=== PATIENT | male | born 1965 | race American Indian/Alaskan Native ===

== ENCOUNTER 2017-08-05 18:49 | Emergency (ER) | payer OTHER ==
--- NOTE | 2017-08-05 19:23 | Emergency Department Report ---
ED Fall HPI - General Chief Complaint: Fall Stated Complaint: FELL Time Seen by Provider: 08/05/17 19:14 Source: patient, EMS Mode of arrival: Ambulatory - History of Present Illness Initial Comments: Patient is 58 years old male found face up outside by a front steps. Patient fell from a possibly 5 steps stairs. Patient had a strong smell of alcohol. Patient is complaining of neck pain and lower back pain. Patient is unable to give more history. MD Complaint: fall -: Sudden Fall From: down stairs (#) (5) When Fall Occurred: just prior to arrival - Related Data Previous Rx's Medication Instructions Recorded Last Taken Type Folic Acid [Folvite] 1 mg PO QDAY #30 tablet 02/23/16 Unknown Rx Multivitamin Tab [Multiple Vitamin 1 each PO QDAY #30 tablet 02/23/16 Unknown Rx TAB (Theragran)] Thiamine [Vitamin B-1] 100 mg PO QDAY #30 tablet 02/23/16 Unknown Rx Allergies Allergy/AdvReac Type Severity Reaction Status Date / Time No Known Allergies Allergy Verified 02/22/16 11:50 ED Review of Systems ROS: Stated complaint: FELL Other details as noted in HPI Comment: All other systems reviewed and negative Constitutional: denies: chills, fever ENT: denies: throat pain Respiratory: denies: cough, orthopnea, shortness of breath Cardiovascular: denies: chest pain, palpitations Gastrointestinal: denies: abdominal pain, nausea, vomiting, diarrhea, constipation, hematemesis, melena, hematochezia Genitourinary: denies: urgency, dysuria, frequency, hematuria, discharge Musculoskeletal: back pain. denies: joint swelling, arthralgia Skin: denies: rash Neurological: denies: headache, weakness, numbness, paresthesias, confusion, abnormal gait ED Past Medical Hx - Past Medical History Previous Medical History?: Yes Hx Hypertension: Yes Hx Congestive Heart Failure: No Hx Diabetes: No Hx Asthma: No Hx COPD: No Additional medical history: chronic RLE wound - Social History Smoking Status: Never Smoker - Medications Home Medications: Home Medications Medication Instructions Recorded Confirmed Last Taken Type Folic Acid [Folvite] 1 mg PO QDAY #30 tablet 02/23/16 Unknown Rx Multivitamin Tab [Multiple Vitamin 1 each PO QDAY #30 tablet 02/23/16 Unknown Rx TAB (Theragran)] Thiamine [Vitamin B-1] 100 mg PO QDAY #30 tablet 02/23/16 Unknown Rx ED Physical Exam - General Limitations: Physical Limitation General appearance: alert, in no apparent distress, other (patient with C-spine immobilization, on board.) - Head Head exam: Present: atraumatic, normocephalic, normal inspection - Eye Eye exam: Present: normal appearance, PERRL - ENT ENT exam: Present: normal exam, normal orophraynx, mucous membranes moist, TM's normal bilaterally, normal external ear exam - Neck Neck exam: Present: normal inspection, full ROM. Absent: tenderness, meningismus, lymphadenopathy, thyromegaly - Respiratory Respiratory exam: Present: normal lung sounds bilaterally. Absent: respiratory distress, wheezes, rales, rhonchi, stridor, chest wall tenderness, accessory muscle use, decreased breath sounds, prolonged expiratory - Cardiovascular Cardiovascular Exam: Present: regular rate, normal rhythm, normal heart sounds - GI/Abdominal GI/Abdominal exam: Present: soft, normal bowel sounds. Absent: distended, tenderness, guarding, rebound, rigid, organomegaly, mass, bruit, pulsatile mass , hernia - Extremities Exam Extremities exam: Present: normal inspection, full ROM, normal capillary refill - Back Exam Back exam: Present: normal inspection, full ROM, muscle spasm. Absent: tenderness, CVA tenderness (R), CVA tenderness (L), paraspinal tenderness, vertebral tenderness - Neurological Exam Neurological exam: Present: alert, oriented X3, CN II-XII intact - Skin Skin exam: Present: warm, intact, normal color ED Course Vital Signs 08/05/17 08/05/17 08/05/17 19:02 19:06 20:54 Temperature 97.8 F Pulse Rate 103 H 99 H Respiratory 20 20 20 Rate Blood Pressure 142/100 [Right] O2 Sat by Pulse 90 95 98 Oximetry - Reevaluation(s) Reevaluation #1: 08/05/17 23:50 Patient is intoxicated with alcohol level of 0.44. Patient is trying to leave the hospital. Patient put on 20-13 for protection. Security notified ED Medical Decision Making - Lab Data Result diagrams: 08/05/17 19:45 08/05/17 19:45 - EKG Data -: EKG Interpreted by Wi EKG shows normal: sinus rhythm - EKG Data Interpretation: no acute changes - Radiology Data Radiology results: report reviewed Referring Physician: MARA STAPLES Patient Name: JAVIER PLUMMER Date of : 1958-11-04 Sex: Male Report Date: 2017-08-05 Report Status: Finalized Findings [address] [address] Cat Scan Report Signed Patient: JAVIER PLUMMER MR#: [id number] : 11/04/1958 Acct:[id number] Age/Sex: 58 / M ADM Date: 08/05/17 Loc: ED Attending Dr: Ordering Physician: MARA STAPLES Date of Service: 08/05/17 Procedure(s): CT lumbar spine wo con Accession Number(s): [id number] cc: MARA STAPLES FINAL REPORT PROCEDURE: CT LUMBAR SPINE WO CON TECHNIQUE: Computerized axial tomography of the lumbar spine was performed from T12 to the sacrum without contrast material. HISTORY: fall/back pain COMPARISON: No prior studies are available for comparison. FINDINGS: There are focal depressions of the superior endplates of T12 through L3, which are likely related to Schmorl's nodes. No acute fracture line is seen. There are facet arthritic changes particularly at L4-5. No acute fracture or subluxation is seen. IMPRESSION: No acute fracture or subluxation is seen Transcribed By: [facility] Dictated By: JAIMEE MUNOZ M.D. Electronically Authenticated By: JAIMEE MUNOZ M.D. Signed Date/Time: 08/05/172007 DD/ 07 TD/TT: 08/05/172007 Referring Physician: MARA STAPLES Patient Name: JAVIER PLUMMER Date of : 1958-11-04 Sex: Male Report Date: 2017-08-05 Report Status: Finalized Findings [address] [address] Cat Scan Report Signed Patient: JAVIER PLUMMER MR#: [id number] : 11/04/1958 Acct:[id number] Age/Sex: 58 / M ADM Date: 08/05/17 Loc: ED Attending Dr: Ordering Physician: MARA STAPLES Date of Service: 08/05/17 Procedure(s): CT head/brain wo con Accession Number(s): [id number] cc: MARA STAPLES FINAL REPORT EXAM: CT HEAD/BRAIN WO CON HISTORY: FALL/neck pain TECHNIQUE: Standard unenhanced CT of the head at 5.0 millimeter axial increments. PRIORS: None. FINDINGS: The ventricular system is normal in size and configuration. There is no evidence for parenchymal volume loss. Incidental cavum septum pellucidum and vergae are present. There is no evidence for mass lesion, mass effect, midline shift, acute intracranial hemorrhage, or acute ischemia/ infarction. No evidence for acute skull fracture is seen. No abnormality in the overlying scalp soft tissues is seen. Visualized paranasal sinuses demonstrates mucosal thickening throughout all of the paranasal sinuses consistent with chronic pansinusitis. IMPRESSION: Negative CT of the head. No acute intracranial process noted. Transcribed By: [facility] Dictated By: OTILIA LEDBETTER MD Electronically Authenticated By: OTILIA LEDBETTER MD Signed Date/Time: 08/05/172010 Referring Physician: MARA STAPLES Patient Name: JAVIER PLUMMER Date of : 1958-11-04 Sex: Male Report Date: 2017-08-05 Report Status: [place] [address] Cat Scan Report Signed Patient: JAVIER PLUMMER MR#: [id number] : 11/04/1958 Acct:[id number] Age/Sex: 58 / M ADM Date: 08/05/17 Loc: ED Attending Dr: Ordering Physician: MARA STAPLES Date of Service: 08/05/17 Procedure(s): CT cervical spine wo con Accession Number(s): [id number] cc: MARA STAPLES FINAL REPORT PROCEDURE: CT CERVICAL SPINE WO CON TECHNIQUE: Computerized tomography of the cervical spine was performed from the skull base to T1 without contrast material. HISTORY: FALL/neck pain COMPARISON: No prior studies are available for comparison. FINDINGS: The vertebral body heights and alignment are maintained. There are multilevel degenerative disc changes, with disc space narrowing and osteophyte formation. The atlantodental articulation is unremarkable. IMPRESSION: No acute fracture or subluxation is identified. Transcribed By: CHRISTIAN[facility] Dictated By: JAIMEE MUNOZ M.D. Electronically Authenticated By: JAIMEE MUNOZ M.D. Signed Date/Time: 08/05/172000 DD/ 00 TD/TT: 08/05/172000 DD/ 10 TD/TT: 08/05/172010Referring Physician: MARA STAPLES Patient Name: JAVIER PLUMMER Date of : 1958-11-04 Sex: Male Report Date: 2017-08-05 Report Status: [place] [address] Cat Scan Report Signed Patient: JAVIER PLUMMER MR#: [id number] : 11/04/1958 Acct:[id number] Age/Sex: 58 / M ADM Date: 08/05/17 Loc: ED Attending Dr: Ordering Physician: MARA STAPLES Date of Service: 08/05/17 Procedure(s): CT cervical spine wo con Accession Number(s): [id number] cc: MARA STAPLES FINAL REPORT PROCEDURE: CT CERVICAL SPINE WO CON TECHNIQUE: Computerized tomography of the cervical spine was performed from the skull base to T1 without contrast material. HISTORY: FALL/neck pain COMPARISON: No prior studies are available for comparison. FINDINGS: The vertebral body heights and alignment are maintained. There are multilevel degenerative disc changes, with disc space narrowing and osteophyte formation. The atlantodental articulation is unremarkable. IMPRESSION: No acute fracture or subluxation is identified. Transcribed By: CHRISTIANNE Dictated By: JAIMEE MUNOZ M.D. Electronically Authenticated By: JAIMEE MUNOZ M.D. Signed Date/Time: 08/05/172000 DD/ 00 TD/TT: 08/05/172000 - Medical Decision Making Patient is intoxicated and incapacitated by alcohol. Patient's CT head, neck and lumbar negative for acute finding. Patient will be held in the ER until he is sober and his alcohol level is normal. Critical Care Time: Yes Critical care time in (mins) excluding proc time.: 30 Critical care attestation.: If time is entered above; I have spent that time in minutes in the direct care of this critically ill patient, excluding procedure time. ED Disposition Clinical Impression: Head injury, Neck injury, Back strain, Alcohol intoxication Disposition: DC- TO HOME OR SELFCARE Is pt being admited?: No Condition: Stable Instructions: Muscle Strain (ED), Minor Head Injury (ED), Alcohol Intoxication (ED), Fall Prevention (ED) Referrals: PRIMARY CARE, [Primary Care Provider] - 3-5 Days
[2017-08-05 19:59] LABS: Basophils # (Auto) 0.1 K/mm3 (0.0-0.1); Basophils % (Auto) 2.6 % (0.0-1.8); Eosinophils % (Auto) 0.9 % (0.0-4.3); Hematocrit 46.3 % (35.5-45.6); Hemoglobin 15.1 gm/dl (11.8-15.2); Lymphocytes # (Auto) 1.5 K/mm3 (1.2-5.4); Lymphocytes % (Auto) 36.4 % (13.4-35.0); Mean Corpuscular HGB Conc 33 % (32-34); Mean Corpuscular Hemoglobin 30 pg (28-32); Mean Corpuscular Volume 91 fl (84-94); Monocytes # (Auto) 0.5 K/mm3 (0.0-0.8); Monocytes % (Auto) 13.3 % (0.0-7.3); Platelet Count 181 K/mm3 (140-440); Red Blood Count 5.11 M/mm3 (3.65-5.03); Red Cell Distribution Width 16.8 % (13.2-15.2)
[2017-08-05 20:07] LABS: INR 0.91 (0.87-1.13); Partial Thromboplastin Time 27.9 Sec. (24.2-36.6)
--- NOTE | 2017-08-05 20:07 | Cat Scan Report ---
FINAL REPORT PROCEDURE: CT CERVICAL SPINE WO CON TECHNIQUE: Computerized tomography of the cervical spine was performed from the skull base to T1 without contrast material. HISTORY: FALL/neck pain COMPARISON: No prior studies are available for comparison. FINDINGS: The vertebral body heights and alignment are maintained. There are multilevel degenerative disc changes, with disc space narrowing and osteophyte formation. The atlantodental articulation is unremarkable. IMPRESSION: No acute fracture or subluxation is identified.
--- NOTE | 2017-08-05 20:13 | Cat Scan Report ---
FINAL REPORT PROCEDURE: CT LUMBAR SPINE WO CON TECHNIQUE: Computerized axial tomography of the lumbar spine was performed from T12 to the sacrum without contrast material. HISTORY: fall/back pain COMPARISON: No prior studies are available for comparison. FINDINGS: There are focal depressions of the superior endplates of T12 through L3, which are likely related to Schmorl's nodes. No acute fracture line is seen. There are facet arthritic changes particularly at L4-5. No acute fracture or subluxation is seen. IMPRESSION: No acute fracture or subluxation is seen
--- NOTE | 2017-08-05 20:16 | Cat Scan Report ---
FINAL REPORT EXAM: CT HEAD/BRAIN WO CON HISTORY: FALL/neck pain TECHNIQUE: Standard unenhanced CT of the head at 5.0 millimeter axial increments. PRIORS: None. FINDINGS: The ventricular system is normal in size and configuration. There is no evidence for parenchymal volume loss. Incidental cavum septum pellucidum and vergae are present. There is no evidence for mass lesion, mass effect, midline shift, acute intracranial hemorrhage, or acute ischemia/ infarction. No evidence for acute skull fracture is seen. No abnormality in the overlying scalp soft tissues is seen. Visualized paranasal sinuses demonstrates mucosal thickening throughout all of the paranasal sinuses consistent with chronic pansinusitis. IMPRESSION: Negative CT of the head. No acute intracranial process noted.
[2017-08-05 20:39] LABS: Alanine Aminotransferase 25 units/L (7-56); BUN/Creatinine Ratio 8; Blood Urea Nitrogen 6 mg/dL (9-20); Calcium 8.8 mg/dL (8.4-10.2); Hemolysis Index 1
[2017-08-05 21:27] LABS: Bacteria,Urine 1+ /HPF (Negative); Bilirubin,Urine NEG (Negative); Blood,Urine MOD (Negative); Color,Urine Yellow (Yellow); Hyaline Casts,Urine 1 /LPF; Mucus,Urine FEW /HPF; Protein,Urine <15 mg/dL mg/dL (Negative); Urobilinogen,Urine < 2.0 mg/dL (<2.0); WBC,Urine < 1.0 /HPF (0.0-6.0)
[2017-08-05 21:54] LABS: Amphetamine Screen,Urine PRESUMPTIVE NEGATIVE; Benzodiazepines Screen,Urine PRESUMPTIVE NEGATIVE; Cannabinoid Screen,Urine PRESUMPTIVE NEGATIVE; Cocaine Screen,Urine PRESUMPTIVE NEGATIVE; Methadone Screen,Urine PRESUMPTIVE NEGATIVE; Opiate Screen,Urine PRESUMPTIVE NEGATIVE
[2017-08-05] MEDS ORDERED: NACL 0.9% 1000 ML 1,000 ML IV ONE (22:09)
[2017-08-06 08:03] VITALS: BP 156/111
== END 2017-08-06 12:30 | disposition home or self-care (01) ==
LOC: EDBD → ED 18:49
DX: F10.129 Alcohol abuse with intoxication, unspecified (principal); S39.012A Strain of muscle, fascia and tendon of lower back, initial encounter; S19.9XXA Unspecified injury of neck, initial encounter; S09.90XA Unspecified injury of head, initial encounter; I10 Essential (primary) hypertension; Y90.9 Presence of alcohol in blood, level not specified; Z79.899 Other long term (current) drug therapy; W10.8XXA Fall (on) (from) other stairs and steps, initial encounter; Y93.89 Activity, other specified; Y99.8 Other external cause status; Y92.89 Other specified places as the place of occurrence of the external cause
CPT/HCPCS: 36415; 70450; 72125; 72131; 80053; 80307; 81001; 85025; 85610; 85730; 93005; 93010; 99291; G0480; J7030; 80320

== ENCOUNTER 2018-06-22 00:04 | Inpatient (IN) | payer OTHER ==
[2018-06-22] MEDS ORDERED: ASPIRIN PO ONE (00:39)
--- NOTE | 2018-06-22 00:46 | Emergency Department Report ---
ED General Adult HPI - General Chief complaint: Chest Pain Stated complaint: BACK PAIN/WEAKNESS Source: patient, EMS Mode of arrival: Ambulatory Limitations: No Limitations - History of Present Illness Initial comments: Patient is a 59-year-old gentleman who is presenting via EMS for a syncopal episode in the shower. Patient called paramedics because the patient had a possible syncopal episode while in the shower. Patient did fall. When paramedics arrived the patient's was diaphoretic and seemed somewhat altered. Patient was able to say that he was in considerable pain with his back gave multiple birthdates and also multiple versions of what happened today. Patient stated initially that he passed out in the shower however now she is here he states that he just simply sat down. Patient also was asked by paramedics prior to arrival the patient had any abdomen is with his bowels or bladder initially saidthat he changes his story and stated that his urine was red. Patient also stated that he had chest pain to paramedics however now he states he sometimes g ets chest pain and had none today. Patient per my history physical states that he is having no chest or abdominal pain he denied any nausea vomiting or diarrhea. Patient simply states that he has back pain and he is weak. Paramedics did add that the patient has chronic back pain and has been in pain. The past 6 months and the patient also according to his 's report to the paramedics the patient was working up until 6 months ago and has been suffering for chronic weakness. - Related Data Previous Rx's Medication Instructions Recorded Last Taken Type Folic Acid [Folvite] 1 mg PO QDAY #30 tablet 09/19/17 Unknown Rx Multivitamin Tab [Multiple Vitamin 1 each PO QDAY #30 tablet 09/19/17 Unknown Rx TAB (Theragran)] Thiamine [Vitamin B-1] 100 mg PO QDAY #30 tablet 09/19/17 Unknown Rx hydrALAZINE [Apresoline TAB] 25 mg PO Q8HR #90 tablet 09/19/17 Unknown Rx Allergies Allergy/AdvReac Type Severity Reaction Status Date / Time No Known Allergies Allergy Verified 02/22/16 11:50 ED Review of Systems ROS: Stated complaint: BACK PAIN/WEAKNESS Other details as noted in HPI Comment: Unobtainable due to pts medical conditions ED Past Medical Hx - Past Medical History Previous Medical History?: Yes Hx Hypertension: Yes Hx Congestive Heart Failure: No Hx Diabetes: No Hx Seizures: Yes Hx Asthma: No Hx COPD: No Hx HIV: No Additional medical history: chronic RLE wound - Surgical History Past Surgical History?: No - Social History Smoking Status: Never Smoker Substance Use Type: Alcohol - Medications Home Medications: Home Medications Medication Instructions Recorded Confirmed Last Taken Type Folic Acid [Folvite] 1 mg PO QDAY #30 tablet 09/19/17 02/24/18 Unknown Rx Multivitamin Tab [Multiple Vitamin 1 each PO QDAY #30 tablet 09/19/17 02/24/18 Unknown Rx TAB (Theragran)] Thiamine [Vitamin B-1] 100 mg PO QDAY #30 tablet 09/19/17 02/24/18 Unknown Rx hydrALAZINE [Apresoline TAB] 25 mg PO Q8HR #90 tablet 09/19/17 02/24/18 Unknown Rx ED Physical Exam - General Limitations: No Limitations General appearance: alert, in no apparent distress, other (patient is tremulous) - Head Head exam: Present: atraumatic, normocephalic - Eye Eye exam: Present: PERRL, EOMI, scleral icterus Pupils: Present: normal accommodation - ENT ENT exam: Present: normal exam, mucous membranes moist - Neck Neck exam: Present: normal inspection - Respiratory Respiratory exam: Present: normal lung sounds bilaterally. Absent: respiratory distress, wheezes, rales, rhonchi - Cardiovascular Cardiovascular Exam: Present: regular rate, normal rhythm. Absent: systolic murmur, diastolic murmur, rubs, gallop - GI/Abdominal GI/Abdominal exam: Present: soft, normal bowel sounds. Absent: distended, tenderness, guarding, rebound - Rectal Rectal exam: Present: deferred - Extremities Exam Extremities exam: Present: normal inspection - Back Exam Back exam: Present: normal inspection - Neurological Exam Neurological exam: Present: alert, altered, CN II-XII intact. Absent: motor sensory deficit - Psychiatric Psychiatric exam: Present: normal affect, normal mood - Skin Skin exam: Present: warm, dry, intact, normal color. Absent: rash ED Course Vital Signs 06/22/18 00:45 Temperature 100.2 F H Pulse Rate 118 H Respiratory 47 H Rate Blood Pressure 98/58 [Left] O2 Sat by Pulse 98 Oximetry - Reevaluation(s) Reevaluation #1: 06/22/18 01:59 Once the patient's laboratory studies returned patient has a new elevated bilirubin. Patient is a history of heavy alcohol use. Patient has a low-grade fever as well and despite the patient stating that he has no abdominal pain with deep palpation patient is tender in the epigastrium and right upper quadrant. This makes cholangitis likely. Patient was started on sepsis protocol at this time and antibiotics will be ordered. ED Medical Decision Making - Lab Data Result diagrams: 06/22/18 01:02 06/22/18 01:02 Lab Results 06/22/18 06/22/18 06/22/18 Range/Units 01:02 01:02 01:02 WBC 7.7 (4.5-11.0) K/mm3 RBC 3.52 L (3.65-5.03) M/mm3 Hgb 11.4 L (11.8-15.2) gm/dl Hct 36.8 (35.5-45.6) % MCV 104 H (84-94) fl MCH 32 (28-32) pg MCHC 31 L (32-34) % RDW 18.6 H (13.2-15.2) % Plt Count 58 L (140-440) K/mm3 PT 18.1 H (12.2-14.9) Sec. INR 1.40 H (0.87-1.13) D-Dimer 1064.09 H (0-234) ng/mlDDU Sodium 125 L (137-145) mmol/L Potassium 3.5 L (3.6-5.0) mmol/L Chloride 85.5 L (98-107) mmol/L Carbon Dioxide 13 L (22-30) mmol/L Anion Gap 30 mmol/L BUN 17 (9-20) mg/dL Creatinine 3.1 H (0.8-1.5) mg/dL Estimated GFR 25 ml/min BUN/Creatinine Ratio 5 % Glucose 124 H (75-100) mg/dL Calcium 8.2 L (8.4-10.2) mg/dL Total Bilirubin 23.50 H (0.1-1.2) mg/dL AST 448 H (5-40) units/L ALT 92 H (7-56) units/L Alkaline Phosphatase 326 H (35-129) units/L Ammonia (25-60) umol/L Troponin T < 0.010 (0.00-0.029) ng/mL Albumin 2.5 L (3.9-5) g/dL Lipase (13-60) units/L 06/22/18 06/22/18 Range/Units 01:02 01:02 WBC (4.5-11.0) K/mm3 RBC (3.65-5.03) M/mm3 Hgb (11.8-15.2) gm/dl Hct (35.5-45.6) % MCV (84-94) fl MCH (28-32) pg MCHC (32-34) % RDW (13.2-15.2) % Plt Count (140-440) K/mm3 PT (12.2-14.9) Sec. INR (0.87-1.13) D-Dimer (0-234) ng/mlDDU Sodium (137-145) mmol/L Potassium (3.6-5.0) mmol/L Chloride (98-107) mmol/L Carbon Dioxide (22-30) mmol/L Anion Gap mmol/L BUN (9-20) mg/dL Creatinine (0.8-1.5) mg/dL Estimated GFR ml/min BUN/Creatinine Ratio % Glucose (75-100) mg/dL Calcium (8.4-10.2) mg/dL Total Bilirubin (0.1-1.2) mg/dL AST (5-40) units/L ALT (7-56) units/L Alkaline Phosphatase (35-129) units/L Ammonia 87.0 H (25-60) umol/L Troponin T (0.00-0.029) ng/mL Albumin (3.9-5) g/dL Lipase 99 H (13-60) units/L - Radiology Data CT of the head is within normal limits. Chest x-ray shows that the patient did not take adequate breath however there is no obvious infiltrates. X-ray of the L-spine per my interpretation shows that the patient does have significant degenerative disease however there is no acute fracture - Medical Decision Making Patient is a 59-year-old gentleman who is presenting with some altered mental status and multiple laboratory abnormalities. Questionable whether the patient has episode at home. Patient also states he only has back pain however he is tender in his epigastrium or right upper quadrant on palpation during my exam. Patient is is hyponatremic and has new onset hyperbilirubinemia. Patient had a low-grade temperature and some mild abdominal discomfort which is worrisome for cholangitis. Patient is to be given ultrasound of his abdomen. At the time of admission ultrasound findings are pending. Patient started on sepsis protocol due to his persistent tachycardia tachypnea. Patient started on broad-spectrum antibiotics blood cultures have been drawn. Patient admitted to the hospitalist service at this time. Patient also has a elevated d-dimer however because of the renal function the patient cannot receive a CT of the chest at this time. VQ scan will be done in the morning. The Hospitalist is aware Critical Care Time: Yes (40) Critical care attestation.: If time is entered above; I have spent that time in minutes in the direct care of this critically ill patient, excluding procedure time. ED Disposition Clinical Impression: Hyponatremia, Hyperbilirubinemia, Hepatic encephalopathy, Transaminitis, Cholangitis Acute renal failure Qualifiers: Acute renal failure type: unspecified Qualified Code(s): N17.9 - Acute kidney failure, unspecified Syncope Qualifiers: Syncope type: vasovagal syncope Qualified Code(s): R55 - Syncope and collapse EtOH dependence Qualifiers: Substance use status: unspecified alcohol-induced disorder Qualified Code(s): F10.29 - Alcohol dependence with unspecified alcohol-induced disorder Wound of right lower extremity Qualifiers: Encounter type: subsequent encounter Qualified Code(s): S81.801D - Unspecified open wound, right lower leg, subsequent encounter Disposition: OP ADMIT IP TO THIS HOSP Is pt being admited?: Yes Does the pt Need Aspirin: No Condition: Stable Referrals: JAVID VIVEROS MD [Primary Care Provider] - 3-5 Days Time of Disposition: 02:23
[2018-06-22 01:12] LABS: Hematocrit 36.8 % (35.5-45.6); Hemoglobin 11.4 gm/dl (11.8-15.2); Mean Corpuscular HGB Conc 31 % (32-34); Mean Corpuscular Volume 104 fl (84-94); Red Blood Count 3.52 M/mm3 (3.65-5.03); Red Cell Distribution Width 18.6 % (13.2-15.2)
[2018-06-22 01:16] LABS: Platelet Count 58 K/mm3 (140-440)
[2018-06-22 01:35] LABS: Alanine Aminotransferase 92 units/L (7-56); Albumin 2.5 g/dL (3.9-5); BUN/Creatinine Ratio 5; Blood Urea Nitrogen 17 mg/dL (9-20); Calcium 8.2 mg/dL (8.4-10.2); Hemolysis Index 5
[2018-06-22 01:39] LABS: INR 1.4 (0.87-1.13)
--- NOTE | 2018-06-22 01:42 | Cat Scan Report ---
CT HEAD/BRAIN WO CON CLINICAL INDICATION: Male, 59 years of age. AMS, syncope COMPARISON: CT of the head from January 2018. TECHNIQUE: Contiguous axial images were obtained from the vertex through the skull base.This CT exam was perform ed using one or more of the following dose reduction techniques: automated exposure control, adjustme nt of the mA and/or kV according to patient size, or use of iterative reconstruction technique. FINDINGS: No acute intracranial hemorrhage, midline shift, or extra-axial fluid collection. Cable septum pelluc idum is present, benign). Ventricles and cisterns are normal in size and configuration for the patien t's age. Ness white differentiation is maintained. Calvarium is grossly intact. Ocular globes are grossly unremarkable. Visualized paranasal sinuses and mastoid air cells are grossly clear. IMPRESSION: No grossly acute intracranial abnormality. This document is electronically signed by Margi Weinberg DO., June 22 2018 01:40:58 AM ET
[2018-06-22] MEDS ORDERED: NACL 0.9% 1000 ML 1,000 ML IV ONE ×2 (01:50→14:12)
[2018-06-22] MEDS ORDERED: CEPHULAC PO ONE (01:51)
[2018-06-22 02:06] LABS: Partial Thromboplastin Time 71.9 Sec. (24.2-36.6)
--- NOTE | 2018-06-22 02:26 | XRay Report ---
XR CHEST 1V AP CLINICAL INDICATION: Male, 59 years of age. Chest Pain COMPARISON: August 2017. Findings: Frontal view(s) of the chest obtained. Stable mild cardiac enlargement. Shallow inspiratio n. Crowding of the bronchovascular markings. Small patchy opacity at the right lung base concerning f or atelectasis versus pneumonia. No gross pneumothorax. IMPRESSION: Small patchy opacity at the right lung base concerning for atelectasis versus pneumonia. Stable mild cardiac enlargement. This document is electronically signed by Margi Weinberg DO., June 22 2018 02:24:10 AM ET
--- NOTE | 2018-06-22 02:37 | XRay Report ---
XR SPINE LUMBOSACRAL 2-3V CLINICAL INDICATION: Male, 59 years of age. back pain, s/p fall COMPARISON: CT lumbar spine from July 2017. FINDINGS: 2 views of the lumbar spine obtained. Stable moderate superior plate compression deformity at the L1 level and prominent Schmorl's deformities and mild superior endplate compression deformitie s of the T12, L2 and L3 levels. L4 and L5 vertebral body heights are preserved. Pedicles are grossly intact. No spondylolisthesis. IMPRESSION: Stable prominent Schmorl's deformities and multilevel compression deformities at the T12-L3 levels. This document is electronically signed by Margi Weinberg DO., June 22 2018 02:35:50 AM ET
[2018-06-22] MEDS ORDERED: MAXIPIME/NS 2 GM/100 ML 2 GM/100 ML BAG IV ONE (03:00)
[2018-06-22] MEDS: FLAGYL 500 MG/100 ML 500 MG/100 ML BAG IV SCH ×3 (03:00→19:48)
[2018-06-22] MEDS ORDERED: MORPHINE IV PRN ×2 (03:09→18:02)
[2018-06-22] MEDS ORDERED: ZOFRAN IV PRN (03:10)
--- NOTE | 2018-06-22 03:39 | Ultrasound Report ---
PROCEDURE: US ABDOMEN LIMITED TECHNIQUE: Ultrasound images obtained of the right upper quadrant HISTORY: RUQ pain elev Bili, low grade fever COMPARISONS: No priors FINDINGS: Pancreas is not well visualized. Coarsely echogenic hepatic parenchyma consistent with fatty infiltration. Distended gallbladder. No evidence of gallstones. Question trace pericholecystic fluid. No evidence of gallbladder wall thickening. The common bile duct is dilated measuring approximately 1.1 cm. Evaluation is limited based on the images obtained. Limited visualization of the right kidney. No evidence of hydronephrosis. IMPRESSION: Coarsely echogenic hepatic parenchyma consistent with fatty infiltration. Distended gallbladder with questionable trace pericholecystic fluid. No gallstones visualized. Dilatation of the common bile duct measuring approximately 1.1 cm. Distal obstructive process must be suspected. Further evaluation with CT and or correlation with MRCP should be considered. If acute cholecystitis is clinically suspected, correlation with HIDA scan may be helpful.. This document is electronically signed by Mayo Gillis MD., June 22 2018 03:37:23 AM ET
[2018-06-22 05:04] LABS: Basophils % (Manual) 0 % (0.0-1.8); Eosinophils % (Manual) 0 % (0.0-4.3); Myelocytes # (Manual) 0.3 K/mm3; Total Cells Counted 100
[2018-06-22 05:05] LABS: Anisocytosis 1+; Hypochromasia Few; Poikilocytosis 1+; Target Cells 1+
[2018-06-22 05:06] LABS: Platelet Estimate Consistent w Auto
[2018-06-22] MEDS ORDERED: FOLVITE 1 MG, INFUVITE 10 ML in NACL 0.9% 1000 ML 1,000 ML IV ONE (06:15)
[2018-06-22] MEDS ORDERED: VITAMIN B-1 PO ONE (07:00)
[2018-06-22] MEDS ORDERED: IBUPROFEN PO PRN ×2 (08:00→14:12)
--- NOTE | 2018-06-22 08:19 | History and Physical Report ---
CHIEF COMPLAINT: Back pain. Other complaints include syncope, generalized body pain, confusion, jaundice, and shortness of breath. HISTORY OF PRESENTING ILLNESS: The patient is a 59-year-old male brought in by EMS after he gave different accounts of what happened to him to different people. He said he told EMS that he had a syncopal episode while in the shower; however, the patient's called EMS and also gave a different account of what was going on with the patient; however, the patient said that he has severe low back pain and denied any history of nausea or vomiting; denied any history of fever or chills, and said that he has generalized body pain which also involved the chest area. The patient denied history of abdominal pain. Denied history of nausea, vomiting, or diarrhea; however, he admitted to feeling weak. The patient presented for evaluation. PAST MEDICAL HISTORY: His past medical history is pertinent for hypertension, seizure disorder, chronic right lower extremity wound. PAST SURGICAL HISTORY: Unremarkable. FAMILY HISTORY: Noncontributory. SOCIAL HISTORY: The patient does not smoke, but drinks alcohol, and does not use illicit drugs. MEDICATIONS: The patient is on folic acid 1 mg by mouth daily, multivitamin Theragran 1 by mouth daily. The patient is also on thiamine 100 mg by mouth daily, hydralazine 25 mg by mouth every 8 hours. ALLERGIES: There are no known drug allergies. REVIEW OF SYSTEMS: CONSTITUTIONAL: There is no fever, no chills, no diaphoresis. HEENT: There is no headache or sore throat. CARDIOVASCULAR SYSTEM: There is no chest pain or orthopnea. RESPIRATORY SYSTEM: There is history of shortness of breath, but no cough. GASTROINTESTINAL SYSTEM: There is no history of abdominal pain, nausea, vomiting, diarrhea, or constipation. NEUROLOGICAL SYSTEM: History of syncopal attack noted. History of confusion noted. MUSCULOSKELETAL SYSTEM: Low back pain noted. Generalized body pain noted. DERMATOLOGIC SYSTEM: There is no skin rash or itching. GENITOURINARY SYSTEM: There is no dysuria, hematuria, or flank pain. Rest of system review is normal. PHYSICAL EXAMINATION: GENERAL: At the time of exam, the patient was found to be alert and oriented to person only, occasionally confused, but not in acute distress. VITAL SIGNS: At the initial time of presentation showed temperature of 100.2 degrees Fahrenheit, pulse of 118, respirations of 47, blood pressure 98/58, O2 sat of 98% on room air. HEENT: Show pupils to be equal, round, reactive to light, and accommodating. The patient has icteric jaundice. Oral mucosa looks dry. NECK: Supple with no JVD or carotid bruit. CARDIOVASCULAR SYSTEM: Show normal first and second heart sounds with no gallops or murmurs. RESPIRATORY SYSTEM: Show good air entry on both sides of the lungs with no abnormal breath sounds. GASTROINTESTINAL SYSTEM: Show abdomen to be full, soft, and nontender with no organomegaly or rigidity elicited. Bowel sounds are normal. NEUROLOGICAL SYSTEM: Showed the patient to be confused from time to time with no focal deficit elicited. MUSCULOSKELETAL SYSTEM: Show swelling in the right foot. DERMATOLOGIC SYSTEM: Show no skin rash, but there is dryness in the skin on both lower extremities. GENITOURINARY: Show no costovertebral angle tenderness. IMAGING STUDIES: The patient had chest x-ray done. Chest x-ray shows small patchy opacity at the right lung base concerning for atelectasis versus pneumonia. Stable mild cardiac enlargement was also found. CT of the head without contrast was also done and this showed no grossly acute intracranial abnormality. The patient had lumbar spine x-ray done. Lumbar CT shows stable prominent Schmorl's deformity and multilevel compression deformity at the T11-L3 levels. The patient had abdominal ultrasound done and abdominal ultrasound shows coarsely echogenic hepatic parenchyma consistent with fatty infiltrate. Distended gallbladder with questionable trace pericholecystic fluid. No gallstones visualized. There is dilatation of the common bile duct measuring approximately 1.1 cm. Distal obstructive process might be suspected. Radiology said that further evaluation with CT and correlation with MRCP should be considered and also went ahead and said if acute cholecystitis is clinically suspected, correlation with HIDA scan may be helpful. LABORATORY RESULTS: The patient has CBC done with normal white count, slightly low hemoglobin of 11.1, normal hematocrit, and elevated MCV of 104 with low platelet level of 58,000. The patient's CBC differential show elevated segmented neutrophil count of 84%. The patient's coagulation studies show high PT of 18.1 with elevated INR of 1.4 and high PTT of 71.9 with elevated D-dimer of 1064. The patient's sodium level is low with a value of 125 and potassium level is low with a value of 3.5 with low chloride level of 85.5. The patient's rest of chemistry show high lactic acid level of 5.6 with low calcium of 8.2, elevated bilirubin of 23.5 with high AST of 448 and high ALT of 92 consistent with the patient's alcohol abuse. The patient's ammonia level is high with a value of 87 and albumin level is low with a value of 2.5. Lipase level is high with a value of 99 and the patient's alcohol level is also high with a value of 0.11. DIAGNOSES: Include: 1. Hepatic encephalopathy. 2. Syncope. 3. Acute kidney injury. 4. Electrolyte imbalance with low sodium and low potassium level. 5. Right lung pneumonia and sepsis. PLAN OF CARE: 1. The patient will be admitted to Telemetry. 2. The patient will have Nephrology consult with Dr. Donovan for acute kidney injury. 3. The patient will have GI consult with Dr. Cayetano Holliday for [facility] because of transaminitis, jaundice, alcoholic liver disease, and dilated common bile duct with hyperbilirubinemia. 4. The patient will have Orthopedic Surgical consult with Dr. Delano Brambila because of acute on chronic low back pain with deformities involving the thoracic and lumbar spine. 5. The patient will be on IV cefepime 1 g q. 8 hours and IV Zithromax 500 mg daily. 6. The patient will be on IV morphine 2 mg every 4 hours needed for pain and IV Zofran 4 mg every 8 hours for nausea and vomiting. 7. The patient will have V/Q scan done this morning to rule out PE because of shortness of breath, tachycardia, and elevated D-dimer. 8. The patient will be on IV normal saline running at 125 mL an hour because of sepsis. 9. The patient will have basic metabolic panel, ammonia level, and lipase level checked this morning. 10. The patient's DVT prophylaxis will be through sequential compressive device and the patient would not be on heparin because of thrombocytopenia. 11. The patient will have lactic acid checked this morning and will have banana bag mixed with IV normal saline that the patient will be getting for treatment of possible alcohol withdrawal. JOB# [id number] OCN/NTS MTDD
[2018-06-22 08:39] LABS: Calcium 7.6 mg/dL (8.4-10.2)
[2018-06-22 08:54] LABS: Albumin 2.3 g/dL (3.9-5)
--- NOTE | 2018-06-22 08:59 | Consultation ---
History of Present Illness - Reason for Consult Consult date: 06/22/18 acute renal failure - History of Present Illness Mr. Bhatia is a 59yo gentleman with hx of HTN and alcohol abuse who presented to the ED following a syncopal episode at home. Patient initially reported that he passed out but later stated that he sat down. Patient denies headache, chest pain, SOB, nausea, vomiting and diarrhea. Of note, patient with hx of multiple ED visits and/or hospitalizations due to syncope Past History Past Medical History: hypertension Past Surgical History: No surgical history Social history: no significant social history Family history: no significant family history Medications and Allergies Allergies Allergy/AdvReac Type Severity Reaction Status Date / Time No Known Allergies Allergy Verified 02/22/16 11:50 Home Medications Medication Instructions Recorded Confirmed Last Taken Type Folic Acid [Folvite] 1 mg PO QDAY #30 tablet 09/19/17 02/24/18 Unknown Rx Multivitamin Tab [Multiple Vitamin 1 each PO QDAY #30 tablet 09/19/17 02/24/18 Unknown Rx TAB (Theragran)] Thiamine [Vitamin B-1] 100 mg PO QDAY #30 tablet 09/19/17 02/24/18 Unknown Rx hydrALAZINE [Apresoline TAB] 25 mg PO Q8HR #90 tablet 09/19/17 02/24/18 Unknown Rx Active Meds: Active Medications Metronidazole (Flagyl 500 Mg/100 Ml) 500 mg in 100 mls @ 100 mls/hr IV Q8H BRISEYDA; Protocol Last Admin: 06/22/18 03:00 Dose: 100 mls/hr Documented by: Cefepime HCl (Maxipime/Ns 2 Gm/100 Ml) 2 gm in 100 mls @ 200 mls/hr IV Q12HR BRISEYDA Folic Acid 1 mg/ Multivitamins /Minerals 10 ml/ Sodium Chloride 1,010.2 mls @ 125 mls/hr IV ONCE ONE Stop: 06/22/18 14:19 Last Admin: 06/22/18 08:32 Dose: 125 mls/hr Documented by: Azithromycin 500 mg/ Sodium (Chloride) 250 mls @ 250 mls/hr IV Q24HR BRISEYDA Ibuprofen (Motrin) 600 mg PO Q6HR PRN PRN Reason: Fever >101 Last Admin: 06/22/18 08:39 Dose: 600 mg Documented by: Lactulose (Cephulac) 20 gm PO Q8H [facility] Morphine Sulfate (Morphine) 2 mg IV Q4H PRN PRN Reason: Pain, Moderate (4-6) Ondansetron HCl (Zofran) 4 mg IV Q8H PRN PRN Reason: Nausea And Vomiting Review of Systems All systems: negative Exam - Vital Signs Vital signs: Vital Signs Resp 25 H 06/22/18 00:36 - General Appearance General appearance: well-developed, well-nourished EENT: ATNC, sclera incterus Respiratory: Clear to Ascultation Heart: regular, S1S2 Gastrointestinal: Present: normal. Absent: tenderness, distended Integumentary: warm and dry, other (jaundiced) Musculoskeletal: Present: other (no edema) Psychiatric: cooperative Results - Lab Results 06/22/18 01:02 06/22/18 14:50 Most recent lab results Calcium 7.6 mg/dL (8.4-10.2) L 06/22/18 07:22 Assessment and Plan Impression: * Acute kidney injury secondary to prerenal azotemia * Sepsis * Hyponatremia * Syncope * Hyperbilirubinemia * Transaminitis * Alcohol abuse Plan: * Continue IVF for hydration - currently receiving NS/banana bag * Patient is not a candidate for V2 receptor antagonist due to liver disease * Empiric abx per primary team - blood cx pending * Avoid neprotoxins * Dose medications for renal function * Strict I/O
[2018-06-22] MEDS: CEPHULAC PO SCH ×2 (09:11→17:46)
[2018-06-22 09:25] LABS: Bilirubin,Direct 4.5 mg/dL (0-0.2)
--- NOTE | 2018-06-22 09:40 | Event Note ---
Date: 06/22/18 Attempted to see patient. Currently off the floor. Will return later today.
--- NOTE | 2018-06-22 10:29 | Nuclear Medicine Report ---
LUNG SCAN, VENTILATION AND PERFUSION: History: Syncope, elevated d-dimer level. Technique: 5mci of Tc99m MAA was infused for the perfusion images. 15mci XE 133 gas was inhaled for the ventilatory images. Correlation is made with a chest x-ray dated 06/22/18. Findings: Inhalation of Xenon gas demonstrates a normal distribution of the activity throughout both lungs. The wash out phases show complete washout of the radiotracer. Mild residual liver activity is noted. After injection of Technetium 99m macroaggregated albumin gamma camera imaging of the lungs in multiple projections demonstrates normal pulmonary contours with a homogeneous distribution of activity. No focal areas of perfusion deficiency are identified. IMPRESSION: Low probability for pulmonary embolus.
[2018-06-22] MEDS: MAXIPIME/NS 2 GM/100 ML 2 GM/100 ML BAG IV SCH ×2 (10:57→23:05)
[2018-06-22] MEDS ORDERED: ATIVAN IV PRN (11:03)
[2018-06-22] MEDS: ATIVAN IV PRN ×3 (11:15→16:19)
[2018-06-22] MEDS: ZITHROMAX 500 MG in NACL 0.9% 250ML 250 ML IV SCH (12:06)
--- NOTE | 2018-06-22 12:36 | Gastroenterology Consultation ---
History of Present Illness - Reason for Consult Consult date: 06/22/18 elevated LFTs, jaundice, alcoholic liver disease Requesting physician: LEN MIR - History of Present Illness Patient is a 59 y/o male with PMH of HTN, seizures, chronic back pain, chronic RLE wound, and alcohol dependency who was brought to ED by EMS after a possible syncopal episode at home and AMS. Upon admission, he was found to have multiple laboratory abnormalities with low grade fever and was started on sepsis protocol. GI has been consulted for elevated LFTs and jaundice. This morning patient was resting in bed w/o acute distress but noted to be tremulous. He admits to jaundice and generalized abd pain but denies wt loss, CP, SOB, N/V, signs of bleeding, or LGI symptoms. Has a long history of alcohol use. Drinks on average 2 beers/day per patient. No hx of IV drug use, prior liver disease, or Fhx of liver disease. Past History Past Medical History: other (as per HPI) Past Surgical History: No surgical history Social history: alcohol abuse. denies: smoking Medications and Allergies Allergies Allergy/AdvReac Type Severity Reaction Status Date / Time No Known Allergies Allergy Verified 02/22/16 11:50 Home Medications Medication Instructions Recorded Confirmed Last Taken Type Folic Acid [Folvite] 1 mg PO QDAY #30 tablet 09/19/17 02/24/18 Unknown Rx Multivitamin Tab [Multiple Vitamin 1 each PO QDAY #30 tablet 09/19/17 02/24/18 Unknown Rx TAB (Theragran)] Thiamine [Vitamin B-1] 100 mg PO QDAY #30 tablet 09/19/17 02/24/18 Unknown Rx hydrALAZINE [Apresoline TAB] 25 mg PO Q8HR #90 tablet 09/19/17 02/24/18 Unknown Rx Active Meds: Active Medications Metronidazole (Flagyl 500 Mg/100 Ml) 500 mg in 100 mls @ 100 mls/hr IV Q8H BRISEYDA; Protocol Last Admin: 06/22/18 03:00 Dose: 100 mls/hr Documented by: Cefepime HCl (Maxipime/Ns 2 Gm/100 Ml) 2 gm in 100 mls @ 200 mls/hr IV Q12HR BRISEYDA Last Admin: 06/22/18 10:57 Dose: 200 mls/hr Documented by: Folic Acid 1 mg/ Multivitamins /Minerals 10 ml/ Sodium Chloride 1,010.2 mls @ 125 mls/hr IV ONCE ONE Stop: 06/22/18 14:19 Last Admin: 06/22/18 08:32 Dose: 125 mls/hr Documented by: Azithromycin 500 mg/ Sodium (Chloride) 250 mls @ 250 mls/hr IV Q24HR BRISEYDA Last Admin: 06/22/18 12:06 Dose: 250 mls/hr Documented by: Ibuprofen (Motrin) 600 mg PO Q6HR PRN PRN Reason: Fever >101 Last Admin: 06/22/18 08:39 Dose: 600 mg Documented by: Lactulose (Cephulac) 20 gm PO Q8H BRISEYDA Last Admin: 06/22/18 09:11 Dose: 20 gm Documented by: Lorazepam (Ativan) 2 mg IV Q1HR PRN PRN Reason: CIWA-Ar 8-15 Last Admin: 06/22/18 12:25 Dose: 2 mg Documented by: Lorazepam (Ativan) 4 mg IV Q15MIN PRN PRN Reason: CIWA-Ar >25 Morphine Sulfate (Morphine) 2 mg IV Q4H PRN PRN Reason: Pain, Moderate (4-6) Ondansetron HCl (Zofran) 4 mg IV Q8H PRN PRN Reason: Nausea And Vomiting medications reviewed/updated Review of Systems - Review of Systems All systems: negative Gastrointestinal: abdominal pain (generalized), jaundice, no nausea, no vomiting, no hematemesis, no melena, no hematochezia Exam - Constitutional Vital Signs: Temp Pulse Resp BP Pulse Ox 99.9 F H 108 H 20 116/70 96 06/22/18 11:16 06/22/18 06:48 06/22/18 11:16 06/22/18 11:16 06/22/18 11:16 General appearance: no acute distress, other (tremulous) - EENT Eyes: scleral icterus - Respiratory Respiratory: bilateral: CTA (anterior) - Cardiovascular Rhythm: other (tachycardia) - Gastrointestinal General gastrointestinal: Present: soft, tender (slight diffuse TT{), non- distended, normal bowel sounds - Labs CBC & Chem 7: 06/22/18 01:02 06/22/18 07:22 Lab Results: Laboratory Results - last 24 hr 06/22/18 06/22/18 06/22/18 01:02 01:02 01:02 WBC 7.7 RBC 3.52 L Hgb 11.4 L Hct 36.8 MCV 104 H MCH 32 MCHC 31 L RDW 18.6 H Plt Count 58 L Add Manual Diff Complete Total Counted 100 Seg Neuts % (Manual) 84.0 H Band Neutrophils % 0 Lymphocytes % (Manual) 9.0 L Reactive Lymphs % (Man) 0 Monocytes % (Manual) 3.0 Eosinophils % (Manual) 0 Basophils % (Manual) 0 Metamyelocytes % 0 Myelocytes % 4.0 Promyelocytes % 0 Blast Cells % 0 Nucleated RBC % 16.0 H Seg Neutrophils # Man 6.5 Band Neutrophils # 0.0 Lymphocytes # (Manual) 0.7 L Abs React Lymphs (Man) 0.0 Monocytes # (Manual) 0.2 Eosinophils # (Manual) 0.0 Basophils # (Manual) 0.0 Metamyelocytes # 0.0 Myelocytes # 0.3 Promyelocytes # 0.0 Blast Cells # 0.0 WBC Morphology Not Reportable Hypersegmented Neuts Not Reportable Hyposegmented Neuts Not Reportable Hypogranular Neuts Not Reportable Smudge Cells Not Reportable Toxic Granulation Not Reportable Toxic Vacuolation Not Reportable Dohle Bodies Not Reportable Pelger-Huet Anomaly Not Reportable Elaine Rods Not Reportable Platelet Estimate Consistent w auto Clumped Platelets Not Reportable Plt Clumps, EDTA Not Reportable Large Platelets Not Reportable Giant Platelets Not Reportable Platelet Satelliting Not Reportable Plt Morphology Comment Not Reportable RBC Morphology Not Reportable Dimorphic RBCs Not Reportable Polychromasia Not Reportable Hypochromasia Few Poikilocytosis 1+ Anisocytosis 1+ Microcytosis Not Reportable Macrocytosis Not Reportable Spherocytes Not Reportable Pappenheimer Bodies Not Reportable Sickle Cells Not Reportable Target Cells 1+ Tear Drop Cells Not Reportable Ovalocytes Not Reportable Helmet Cells Not Reportable Lara-Howard Bodies Not Reportable [place] Rings Not Reportable [place] Cells Not Reportable Bite Cells Not Reportable Crenated Cell Not Reportable Elliptocytes Not Reportable Acanthocytes (Spur) Not Reportable Rouleaux Not Reportable Hemoglobin C Crystals Not Reportable Schistocytes Not Reportable Malaria parasites Not Reportable Tristen Bodies Not Reportable Hem Pathologist Commnt No PT 18.1 H INR 1.40 H APTT 71.9 H* D-Dimer 1064.09 H Sodium 125 L Potassium 3.5 L Chloride 85.5 L Carbon Dioxide 13 L Anion Gap 30 BUN 17 Creatinine 3.1 H Estimated GFR 25 BUN/Creatinine Ratio 5 Glucose 124 H Lactic Acid Calcium 8.2 L Total Bilirubin 23.50 H Direct Bilirubin Indirect Bilirubin AST 448 H ALT 92 H Alkaline Phosphatase 326 H Ammonia Troponin T < 0.010 Total Protein 5.5 L Albumin 2.5 L Albumin/Globulin Ratio 0.8 Lipase Plasma/Serum Alcohol 06/22/18 06/22/18 06/22/18 01:02 01:02 02:57 WBC RBC Hgb Hct MCV MCH MCHC RDW Plt Count Add Manual Diff Total Counted Seg Neuts % (Manual) Band Neutrophils % Lymphocytes % (Manual) Reactive Lymphs % (Man) Monocytes % (Manual) Eosinophils % (Manual) Basophils % (Manual) Metamyelocytes % Myelocytes % Promyelocytes % Blast Cells % Nucleated RBC % Seg Neutrophils # Man Band Neutrophils # Lymphocytes # (Manual) Abs React Lymphs (Man) Monocytes # (Manual) Eosinophils # (Manual) Basophils # (Manual) Metamyelocytes # Myelocytes # Promyelocytes # Blast Cells # WBC Morphology Hypersegmented Neuts Hyposegmented Neuts Hypogranular Neuts Smudge Cells Toxic Granulation Toxic Vacuolation Dohle Bodies Pelger-Huet Anomaly Elaine Rods Platelet Estimate Clumped Platelets Plt Clumps, EDTA Large Platelets Giant Platelets Platelet Satelliting Plt Morphology Comment RBC Morphology Dimorphic RBCs Polychromasia Hypochromasia Poikilocytosis Anisocytosis Microcytosis Macrocytosis Spherocytes Pappenheimer Bodies Sickle Cells Target Cells Tear Drop Cells Ovalocytes Helmet Cells Lara-Howard Bodies Lockhart Rings [place] Cells Bite Cells Crenated Cell Elliptocytes Acanthocytes (Spur) Rouleaux Hemoglobin C Crystals Schistocytes Malaria parasites Tristen Bodies Hem Pathologist Commnt PT INR APTT D-Dimer Sodium Potassium Chloride Carbon Dioxide Anion Gap BUN Creatinine Estimated GFR BUN/Creatinine Ratio Glucose Lactic Acid Calcium Total Bilirubin Direct Bilirubin Indirect Bilirubin AST ALT Alkaline Phosphatase Ammonia 87.0 H Troponin T Total Protein Albumin Albumin/Globulin Ratio Lipase 99 H Plasma/Serum Alcohol 0.11 H 06/22/18 06/22/18 06/22/18 02:57 07:22 07:22 WBC RBC Hgb Hct MCV MCH MCHC RDW Plt Count Add Manual Diff Total Counted Seg Neuts % (Manual) Band Neutrophils % Lymphocytes % (Manual) Reactive Lymphs % (Man) Monocytes % (Manual) Eosinophils % (Manual) Basophils % (Manual) Metamyelocytes % Myelocytes % Promyelocytes % Blast Cells % Nucleated RBC % Seg Neutrophils # Man Band Neutrophils # Lymphocytes # (Manual) Abs React Lymphs (Man) Monocytes # (Manual) Eosinophils # (Manual) Basophils # (Manual) Metamyelocytes # Myelocytes # Promyelocytes # Blast Cells # WBC Morphology Hypersegmented Neuts Hyposegmented Neuts Hypogranular Neuts Smudge Cells Toxic Granulation Toxic Vacuolation Dohle Bodies Pelger-Huet Anomaly Elaine Rods Platelet Estimate Clumped Platelets Plt Clumps, EDTA Large Platelets Giant Platelets Platelet Satelliting Plt Morphology Comment RBC Morphology Dimorphic RBCs Polychromasia Hypochromasia Poikilocytosis Anisocytosis Microcytosis Macrocytosis Spherocytes Pappenheimer Bodies Sickle Cells Target Cells Tear Drop Cells Ovalocytes Helmet Cells Lara-Howard Bodies Lockhart Rings Michel Cells Bite Cells Crenated Cell Elliptocytes Acanthocytes (Spur) Rouleaux Hemoglobin C Crystals Schistocytes Malaria parasites Tristen Bodies Hem Pathologist Commnt PT INR APTT D-Dimer Sodium Potassium Chloride Carbon Dioxide Anion Gap BUN Creatinine Estimated GFR BUN/Creatinine Ratio Glucose Lactic Acid 5.60 H* 4.10 H* Calcium Total Bilirubin 22.50 H Direct Bilirubin 4.5 H Indirect Bilirubin 18.0 AST 374 H ALT 82 H Alkaline Phosphatase 267 H Ammonia Troponin T Total Protein 5.3 L Albumin 2.3 L Albumin/Globulin Ratio 0.8 Lipase Plasma/Serum Alcohol 06/22/18 06/22/18 07:22 07:22 WBC RBC Hgb Hct MCV MCH MCHC RDW Plt Count Add Manual Diff Total Counted Seg Neuts % (Manual) Band Neutrophils % Lymphocytes % (Manual) Reactive Lymphs % (Man) Monocytes % (Manual) Eosinophils % (Manual) Basophils % (Manual) Metamyelocytes % Myelocytes % Promyelocytes % Blast Cells % Nucleated RBC % Seg Neutrophils # Man Band Neutrophils # Lymphocytes # (Manual) Abs React Lymphs (Man) Monocytes # (Manual) Eosinophils # (Manual) Basophils # (Manual) Metamyelocytes # Myelocytes # Promyelocytes # Blast Cells # WBC Morphology Hypersegmented Neuts Hyposegmented Neuts Hypogranular Neuts Smudge Cells Toxic Granulation Toxic Vacuolation Dohle Bodies Pelger-Huet Anomaly Elaine Rods Platelet Estimate Clumped Platelets Plt Clumps, EDTA Large Platelets Giant Platelets Platelet Satelliting Plt Morphology Comment RBC Morphology Dimorphic RBCs Polychromasia Hypochromasia Poikilocytosis Anisocytosis Microcytosis Macrocytosis Spherocytes Pappenheimer Bodies Sickle Cells Target Cells Tear Drop Cells Ovalocytes Helmet Cells Lara-Howard Bodies Lockhart Rings [place] Cells Bite Cells Crenated Cell Elliptocytes Acanthocytes (Spur) Rouleaux Hemoglobin C Crystals Schistocytes Malaria parasites Tristen Bodies Hem Pathologist Commnt PT INR APTT D-Dimer Sodium 125 L Potassium 3.5 L Chloride 89.1 L Carbon Dioxide 14 L Anion Gap 25 BUN 18 Creatinine 2.2 H Estimated GFR 37 BUN/Creatinine Ratio 8 Glucose 130 H Lactic Acid Calcium 7.6 L Total Bilirubin Direct Bilirubin Indirect Bilirubin AST ALT Alkaline Phosphatase Ammonia 81.0 H Troponin T Total Protein Albumin Albumin/Globulin Ratio Lipase Plasma/Serum Alcohol Assessment and Plan 1.elevated LFTs 2.jaundice 3.ETOH abuse -temp 99.9 -WBC 7.7 -H/H 11.4/36.8 -plt 58, INR 1.40 -LFTs-T.kurt 22.50, AST 374, ALT 82, alk phos 267 -ammonia 81 -lipase 99 -alcohol level 0.11 on admission -abd U/S showed fatty infiltration of liver, distended gallbladder (no gallstones), and dilation of CBD (1.1 cm) -etiology- likely 2/2 ETOH vs other (suspect underlying cirrhosis given history and labs) -MR/MRCP pending for further evaluation of US results -continue lactulose, empiric antibiotics, and MVI -continue to trend labs and supportive care -alcohol cessation-CIWA protocol -electrolyte management per primary team -further recommendations to follow 4.sepsis 5.chronic RLE wound -culture +moderate gram negative rods
[2018-06-22] MEDS ORDERED: MAXIPIME/NS 1 GM/100 ML 1 GM/100 ML BAG IV SCH (14:00)
--- NOTE | 2018-06-22 14:09 | Progress Note ---
Assessment and Plan Assessment and plan: Patient's a 59-year-old male with a history of EtOH abuse admitted with altered mental status. According to ED documentation the of the patient called paramedics because the patient had possible syncopal episode while in the shower information was treated with multiple variation as documented by the EMS. Nevertheless on presentation to the hospital patient was noted to have multiple laboratory abnormalities with "hyponatremic and has new onset hyperbilirubinemia. Patient had a low-grade temperature and some mild abdominal discomfort which is worrisome for cholangitis" as documented by the ED. There is also concern of possible syncopal episode while in the shower mentioned above. CT of the head is within normal limits. Chest x-ray shows that the patient did not take adequate breath however there is no obvious infiltrates. X-ray of the L-spine per my interpretation shows that the patient does have significant degenerative disease however there is no acute fracture XR Spine lumbosacral: Stable prominent Schmorl's deformities and multilevel compression deformities at the T12-L3 levels. US abdomen: IMPRESSION: Coarsely echogenic hepatic parenchyma consistent with fatty infiltration. Distended gallbladder with questionable trace pericholecystic fluid. No gallstones visualized. Dilatation of the common bile duct measuring approximately 1.1 cm. Distal obstructive process must be suspected. Further evaluation with CT and or correlation with MRCP should be co nsidered. If acute cholecystitis is clinically suspected, correlation with HIDA scan may be helpful.. V/Q scan: No PE MRCP: Pending Hepatic Encephalopathy Possible Choledocholethasis with LFT abnormalities Syncope possible vasovagal Dialated CBD with distended gall bladder Severe sepsis with >2 SOFA criteria Met Acute Kidney Injury with vasomotor nephropathy Hyponatremia Right Lower Ext Wound ETOH INTOXICATION Alcohol use disorder Metabolic Acidosis Lactic acidosis Hypokalemia Multilevel Compression deformities- T12-L3- No incontinence Plan Supportive care Aspiration/Seizure precaution Continue empiric antibiotic coverage Follow-up with cultures GI improved noted Orthopedic eval Obtain echocardiogram although doubt cardiac etiology Replace Potassium level Monitor sodium leveL Counselling on etoh cessation when awake Wound care consult May require further fluid resuscitation MRCP [facility] Protocol DVT/GI prophy The high probability of a clinically significant, sudden or life threatening deterioration of the [gi,NEURO] system(s) required my full and direct attention, intervention and personal management. The aggregate critical care time was [35] minutes. This time is in addition to time spent performing reported procedures but includes the following: [X] Data Review and interpretation [X] Patient assessment and monitoring of vital signs [X] Documentation [X] Medication orders and management . History Interval history: Patient Seen and examined this morning remains with altered mental status normal other adverse event reported overnight. Hospitalist Physical - Physical exam Narrative exam: VITAL SIGNS: Reviewed. GENERAL: The patient appeared disheveled appearing mumbles a few words, tremulous Vital signs as documented. HEAD: No signs of head trauma. EYES: Pupils are equal. EARS: Hearing grossly intact. MOUTH: Oropharynx is normal. NECK: No adenopathy, no JVD. CHEST: Chest with clear breath sounds bilaterally. No wheezes, rales, or rhonchi. CARDIAC: Regular rate and rhythm. S1 and S2, without murmurs, gallops, or rubs. VASCULAR: Trace bilateral pitting Edema. Peripheral pulses normal and equal in all extremities. ABDOMEN: Soft, mildly distended and generalized tenderness. No rebound or guarding, and no masses palpated. Bowel Sounds normal. MUSCULOSKELETAL: Extremities without clubbing, cyanosis or edema. NEUROLOGIC EXAM: Altered sensorium PSYCHIATRIC: Unable to examine patient's altered. SKIN: No rash or lesions. - Constitutional Vitals: Temp Pulse Resp BP Pulse Ox 99.9 F H 108 H 20 116/70 96 06/22/18 11:16 06/22/18 06:48 06/22/18 11:16 06/22/18 11:16 06/22/18 11:16 Results - Labs CBC & Chem 7: 06/22/18 01:02 06/22/18 07:22 Labs: Laboratory Last Values WBC 7.7 K/mm3 (4.5-11.0) 06/22/18 01:02 RBC 3.52 M/mm3 (3.65-5.03) L 06/22/18 01:02 Hgb 11.4 gm/dl (11.8-15.2) L 06/22/18 01:02 Hct 36.8 % (35.5-45.6) 06/22/18 01:02 MCV 104 fl (84-94) H 06/22/18 01:02 MCH 32 pg (28-32) 06/22/18 01:02 MCHC 31 % (32-34) L 06/22/18 01:02 RDW 18.6 % (13.2-15.2) H 06/22/18 01:02 Plt Count 58 K/mm3 (140-440) L 06/22/18 01:02 Add Manual Diff Complete 06/22/18 01:02 Total Counted 100 06/22/18 01:02 Seg Neuts % (Manual) 84.0 % (40.0-70.0) H 06/22/18 01:02 Band Neutrophils % 0 % 06/22/18 01:02 Lymphocytes % (Manual) 9.0 % (13.4-35.0) L 06/22/18 01:02 Reactive Lymphs % (Man) 0 % 06/22/18 01:02 Monocytes % (Manual) 3.0 % (0.0-7.3) 06/22/18 01:02 Eosinophils % (Manual) 0 % (0.0-4.3) 06/22/18 01:02 Basophils % (Manual) 0 % (0.0-1.8) 06/22/18 01:02 Metamyelocytes % 0 % 06/22/18 01:02 Myelocytes % 4.0 % 06/22/18 01:02 Promyelocytes % 0 % 06/22/18 01:02 Blast Cells % 0 % 06/22/18 01:02 Nucleated RBC % 16.0 % (0.0-0.9) H 06/22/18 01:02 Seg Neutrophils # Man 6.5 K/mm3 (1.8-7.7) 06/22/18 01:02 Band Neutrophils # 0.0 K/mm3 06/22/18 01:02 Lymphocytes # (Manual) 0.7 K/mm3 (1.2-5.4) L 06/22/18 01:02 Abs React Lymphs (Man) 0.0 K/mm3 06/22/18 01:02 Monocytes # (Manual) 0.2 K/mm3 (0.0-0.8) 06/22/18 01:02 Eosinophils # (Manual) 0.0 K/mm3 (0.0-0.4) 06/22/18 01:02 Basophils # (Manual) 0.0 K/mm3 (0.0-0.1) 06/22/18 01:02 Metamyelocytes # 0.0 K/mm3 06/22/18 01:02 Myelocytes # 0.3 K/mm3 06/22/18 01:02 Promyelocytes # 0.0 K/mm3 06/22/18 01:02 Blast Cells # 0.0 K/mm3 06/22/18 01:02 WBC Morphology Not Reportable 06/22/18 01:02 Hypersegmented Neuts Not Reportable 06/22/18 01:02 Hyposegmented Neuts Not Reportable 06/22/18 01:02 Hypogranular Neuts Not Reportable 06/22/18 01:02 Smudge Cells Not Reportable 06/22/18 01:02 Toxic Granulation Not Reportable 06/22/18 01:02 Toxic Vacuolation Not Reportable 06/22/18 01:02 Dohle Bodies Not Reportable 06/22/18 01:02 Pelger-Huet Anomaly Not Reportable 06/22/18 01:02 Elaine Rods Not Reportable 06/22/18 01:02 Platelet Estimate Consistent w auto 06/22/18 01:02 Clumped Platelets Not Reportable 06/22/18 01:02 Plt Clumps, EDTA Not Reportable 06/22/18 01:02 Large Platelets Not Reportable 06/22/18 01:02 Giant Platelets Not Reportable 06/22/18 01:02 Platelet Satelliting Not Reportable 06/22/18 01:02 Plt Morphology Comment Not Reportable 06/22/18 01:02 RBC Morphology Not Reportable 06/22/18 01:02 Dimorphic RBCs Not Reportable 06/22/18 01:02 Polychromasia Not Reportable 06/22/18 01:02 Hypochromasia Few 06/22/18 01:02 Poikilocytosis 1+ 06/22/18 01:02 Anisocytosis 1+ 06/22/18 01:02 Microcytosis Not Reportable 06/22/18 01:02 Macrocytosis Not Reportable 06/22/18 01:02 Spherocytes Not Reportable 06/22/18 01:02 Pappenheimer Bodies Not Reportable 06/22/18 01:02 Sickle Cells Not Reportable 06/22/18 01:02 Target Cells 1+ 06/22/18 01:02 Tear Drop Cells Not Reportable 06/22/18 01:02 Ovalocytes Not Reportable 06/22/18 01:02 Helmet Cells Not Reportable 06/22/18 01:02 Lara-[place] Bodies Not Reportable 06/22/18 01:02 [place] Rings Not Reportable 06/22/18 01:02 Michel Cells Not Reportable 06/22/18 01:02 Bite Cells Not Reportable 06/22/18 01:02 Crenated Cell Not Reportable 06/22/18 01:02 Elliptocytes Not Reportable 06/22/18 01:02 Acanthocytes (Spur) Not Reportable 06/22/18 01:02 Rouleaux Not Reportable 06/22/18 01:02 Hemoglobin C Crystals Not Reportable 06/22/18 01:02 Schistocytes Not Reportable 06/22/18 01:02 Malaria parasites Not Reportable 06/22/18 01:02 Tristen Bodies Not Reportable 06/22/18 01:02 Hem Pathologist Commnt No 06/22/18 01:02 PT 18.1 Sec. (12.2-14.9) H 06/22/18 01:02 INR 1.40 (0.87-1.13) H 06/22/18 01:02 APTT 71.9 Sec. (24.2-36.6) H* 06/22/18 01:02 D-Dimer 1064.09 ng/mlDDU (0-234) H 06/22/18 01:02 Sodium 125 mmol/L (137-145) L 06/22/18 07:22 Potassium 3.5 mmol/L (3.6-5.0) L 06/22/18 07:22 Chloride 89.1 mmol/L (98-107) L 06/22/18 07:22 Carbon Dioxide 14 mmol/L (22-30) L 06/22/18 07:22 Anion Gap 25 mmol/L 06/22/18 07:22 BUN 18 mg/dL (9-20) 06/22/18 07:22 Creatinine 2.2 mg/dL (0.8-1.5) H 06/22/18 07:22 Estimated GFR 37 ml/min 06/22/18 07:22 BUN/Creatinine Ratio 8 % 06/22/18 07:22 Glucose 130 mg/dL (75-100) H 06/22/18 07:22 Lactic Acid 4.10 mmol/L (0.7-2.0) H* 06/22/18 07:22 Calcium 7.6 mg/dL (8.4-10.2) L 06/22/18 07:22 Total Bilirubin 22.50 mg/dL (0.1-1.2) H 06/22/18 07:22 Direct Bilirubin 4.5 mg/dL (0-0.2) H 06/22/18 07:22 Indirect Bilirubin 18.0 mg/dL 06/22/18 07:22 AST 374 units/L (5-40) H 06/22/18 07:22 ALT 82 units/L (7-56) H 06/22/18 07:22 Alkaline Phosphatase 267 units/L (35-129) H 06/22/18 07:22 Ammonia 81.0 umol/L (25-60) H 06/22/18 07:22 Troponin T < 0.010 ng/mL (0.00-0.029) 06/22/18 01:02 Total Protein 5.3 g/dL (6.3-8.2) L 06/22/18 07:22 Albumin 2.3 g/dL (3.9-5) L 06/22/18 07:22 Albumin/Globulin Ratio 0.8 % 06/22/18 07:22 Lipase 99 units/L (13-60) H 06/22/18 01:02 Plasma/Serum Alcohol 0.11 % (0-0.07) H 06/22/18 02:57 Active Medications - Current Medications Current Medications: Generic Name Dose Route Start Last Admin Trade Name Freq PRN Reason Stop Dose Admin Metronidazole 500 mg in 100 mls @ 100 mls/hr 06/22/18 02:00 06/22/18 13:49 Flagyl 500 Mg/100 Ml IV 100 mls/hr Q8H BRISEYDA Administration Protocol Cefepime HCl 2 gm in 100 mls @ 200 mls/hr 06/22/18 10:00 06/22/18 10:57 Maxipime/Ns 2 Gm/100 Ml IV 200 mls/hr Q12HR BRISEYDA Administration Folic Acid 1 mg/ Multivitamins 1,010.2 mls @ 125 mls/hr 06/22/18 06:15 06/22/18 08:32 /Minerals 10 ml/ Sodium IV 06/22/18 14:19 125 mls/hr Chloride ONCE ONE Administration Azithromycin 500 mg/ Sodium 250 mls @ 250 mls/hr 06/22/18 10:00 06/22/18 12:06 Chloride IV 250 mls/hr Q24HR BRISEYDA Administration Ibuprofen 600 mg 06/22/18 08:00 06/22/18 08:39 Motrin PO 600 mg Q6HR PRN Administration Fever >101 Lactulose 20 gm 06/22/18 08:00 06/22/18 09:11 Cephulac PO 20 gm Q8H BRISEYDA Administration Lorazepam 2 mg 06/22/18 11:03 06/22/18 12:25 Ativan IV 2 mg Q1HR PRN Administration CIWA-Ar 8-15 Lorazepam 4 mg 06/22/18 11:03 Ativan IV Q15MIN PRN CIWA-Ar >25 Morphine Sulfate 2 mg 06/22/18 03:09 Morphine IV Q4H PRN Pain, Moderate (4-6) Ondansetron HCl 4 mg 06/22/18 03:10 Zofran IV Q8H PRN Nausea And Vomiting
[2018-06-22] MEDS: NACL 0.9% 1000 ML 1,000 ML IV SCH (17:59)
[2018-06-22] MEDS: XIFAXAN PO SCH (23:05)
[2018-06-23] MEDS: CEPHULAC PO SCH ×3 (00:37→16:41)
[2018-06-23] MEDS: FLAGYL 500 MG/100 ML 500 MG/100 ML BAG IV SCH ×3 (01:17→17:25)
[2018-06-23] MEDS: NACL 0.9% 1000 ML 1,000 ML IV SCH ×2 (05:05→21:55)
[2018-06-23 05:49] LABS: Hematocrit 31.5 % (35.5-45.6); Hemoglobin 10.1 gm/dl (11.8-15.2); Mean Corpuscular HGB Conc 32 % (32-34); Mean Corpuscular Volume 103 fl (84-94); Red Blood Count 3.06 M/mm3 (3.65-5.03); Red Cell Distribution Width 19.1 % (13.2-15.2)
[2018-06-23 06:13] LABS: Platelet Count 38 K/mm3 (140-440)
[2018-06-23 07:21] LABS: Alanine Aminotransferase 63 units/L (7-56); Albumin 2.1 g/dL (3.9-5); BUN/Creatinine Ratio 14; Blood Urea Nitrogen 20 mg/dL (9-20); Calcium 7.2 mg/dL (8.4-10.2); Hemolysis Index 0
--- NOTE | 2018-06-23 08:09 | Progress Note ---
Assessment and Plan Assessment and plan: Patient's a 59-year-old male with a history of EtOH abuse admitted with altered mental status. According to ED documentation the of the patient called paramedics because the patient had possible syncopal episode while in the shower information was treated with multiple variation as documented by the EMS. Nevertheless on presentation to the hospital patient was noted to have multiple laboratory abnormalities with "hyponatremic and has new onset hyperbilirubinemia. Patient had a low-grade temperature and some mild abdominal discomfort which is worrisome for cholangitis" as documented by the ED. There is also concern of possible syncopal episode while in the shower mentioned above. CT of the head is within normal limits. Chest x-ray shows that the patient did not take adequate breath however there is no obvious infiltrates. X-ray of the L-spine per my interpretation shows that the patient does have significant degenerative disease however there is no acute fracture XR Spine lumbosacral: Stable prominent Schmorl's deformities and multilevel compression deformities at the T12-L3 levels. US abdomen: IMPRESSION: Coarsely echogenic hepatic parenchyma consistent with fatty infiltration. Distended gallbladder with questionable trace pericholecystic fluid. No gallstones visualized. Dilatation of the common bile duct measuring approximately 1.1 cm. Distal obstructive process must be suspected. Further evaluation with CT and or correlation with MRCP should be co nsidered. If acute cholecystitis is clinically suspected, correlation with HIDA scan may be helpful.. V/Q scan: No PE MRCP: Pending Hepatic Encephalopathy Thrombocytopenia and worsening. Anemia SECODNARY TO ETOH AND LIVER DISFUNCTION Possible Choledocholethasis with LFT abnormalities Syncope possible vasovagal Dialated CBD with distended gall bladder Severe sepsis with >2 SOFA criteria Met Acute Kidney Injury with vasomotor nephropathy Hyponatremia Right Lower Ext Wound ETOH INTOXICATION Alcohol use disorder Metabolic Acidosis Lactic acidosis Hypokalemia Multilevel Compression deformities- T12-L3- No incontinence Plan Supportive care Aspiration/Seizure precaution Continue empiric antibiotic coverage Follow-up with cultures GI improved noted Orthopedic eval Obtain echocardiogram although doubt cardiac etiology Replace Potassium level Monitor sodium leveL Counselling on etoh cessation when awake Wound care consult May require further fluid resuscitation MRCP CIWA Protocol DVT/GI prophy The high probability of a clinically significant, sudden or life threatening deterioration of the [gi,NEURO] system(s) required my full and direct attention, intervention and personal management. The aggregate critical care time was [35] minutes. This time is in addition to time spent performing reported procedures but includes the following: [X] Data Review and interpretation [X] Patient assessment and monitoring of vital signs [X] Documentation [X] Medication orders and management . History Interval history: Patient Seen and examined this morning remains with altered mental status although more awake, but still tremolous Hospitalist Physical - Physical exam Narrative exam: VITAL SIGNS: Reviewed. GENERAL: The patient appeared still with tremulous. Vital signs as documented. HEAD: No signs of head trauma. EYES: Pupils are equal. EARS: Hearing grossly intact. MOUTH: Oropharynx is normal. NECK: No adenopathy, no JVD. CHEST: Chest with clear breath sounds bilaterally. No wheezes, rales, or rhonchi. CARDIAC: Regular rate and rhythm. S1 and S2, without murmurs, gallops, or rubs. VASCULAR: Trace bilateral pitting Edema. Peripheral pulses normal and equal in all extremities. ABDOMEN: Soft, mildly distended and generalized tenderness. No rebound or guarding, and no masses palpated. Bowel Sounds normal. MUSCULOSKELETAL: Extremities without clubbing, cyanosis or edema. NEUROLOGIC EXAM: Altered sensorium PSYCHIATRIC: Unable to examine patient's altered. SKIN: Right leg chronic wound, echymosis at the back. - Constitutional Vitals: Temp Pulse Resp BP Pulse Ox 97.8 F 99 H 18 121/83 100 06/23/18 06:51 06/23/18 06:51 06/23/18 06:51 06/23/18 06:51 06/23/18 06:51 Results - Labs CBC & Chem 7: 06/24/18 05:20 06/24/18 05:20 Labs: Laboratory Last Values WBC 8.0 K/mm3 (4.5-11.0) 06/23/18 05:27 RBC 3.06 M/mm3 (3.65-5.03) L 06/23/18 05:27 Hgb 10.1 gm/dl (11.8-15.2) L 06/23/18 05:27 Hct 31.5 % (35.5-45.6) L 06/23/18 05:27 MCV 103 fl (84-94) H 06/23/18 05:27 MCH 33 pg (28-32) H 06/23/18 05:27 MCHC 32 % (32-34) 06/23/18 05:27 RDW 19.1 % (13.2-15.2) H 06/23/18 05:27 Plt Count 38 K/mm3 (140-440) L 06/23/18 05:27 Add Manual Diff Complete 06/22/18 01:02 Total Counted 100 06/22/18 01:02 Seg Neuts % (Manual) 84.0 % (40.0-70.0) H 06/22/18 01:02 Band Neutrophils % 0 % 06/22/18 01:02 Lymphocytes % (Manual) 9.0 % (13.4-35.0) L 06/22/18 01:02 Reactive Lymphs % (Man) 0 % 06/22/18 01:02 Monocytes % (Manual) 3.0 % (0.0-7.3) 06/22/18 01:02 Eosinophils % (Manual) 0 % (0.0-4.3) 06/22/18 01:02 Basophils % (Manual) 0 % (0.0-1.8) 06/22/18 01:02 Metamyelocytes % 0 % 06/22/18 01:02 Myelocytes % 4.0 % 06/22/18 01:02 Promyelocytes % 0 % 06/22/18 01:02 Blast Cells % 0 % 06/22/18 01:02 Nucleated RBC % 16.0 % (0.0-0.9) H 06/22/18 01:02 Seg Neutrophils # Man 6.5 K/mm3 (1.8-7.7) 06/22/18 01:02 Band Neutrophils # 0.0 K/mm3 06/22/18 01:02 Lymphocytes # (Manual) 0.7 K/mm3 (1.2-5.4) L 06/22/18 01:02 Abs React Lymphs (Man) 0.0 K/mm3 06/22/18 01:02 Monocytes # (Manual) 0.2 K/mm3 (0.0-0.8) 06/22/18 01:02 Eosinophils # (Manual) 0.0 K/mm3 (0.0-0.4) 06/22/18 01:02 Basophils # (Manual) 0.0 K/mm3 (0.0-0.1) 06/22/18 01:02 Metamyelocytes # 0.0 K/mm3 06/22/18 01:02 Myelocytes # 0.3 K/mm3 06/22/18 01:02 Promyelocytes # 0.0 K/mm3 06/22/18 01:02 Blast Cells # 0.0 K/mm3 06/22/18 01:02 WBC Morphology Not Reportable 06/22/18 01:02 Hypersegmented Neuts Not Reportable 06/22/18 01:02 Hyposegmented Neuts Not Reportable 06/22/18 01:02 Hypogranular Neuts Not Reportable 06/22/18 01:02 Smudge Cells Not Reportable 06/22/18 01:02 Toxic Granulation Not Reportable 06/22/18 01:02 Toxic Vacuolation Not Reportable 06/22/18 01:02 Dohle Bodies Not Reportable 06/22/18 01:02 Pelger-Huet Anomaly Not Reportable 06/22/18 01:02 Elaine Rods Not Reportable 06/22/18 01:02 Platelet Estimate Consistent w auto 06/22/18 01:02 Clumped Platelets Not Reportable 06/22/18 01:02 Plt Clumps, EDTA Not Reportable 06/22/18 01:02 Large Platelets Not Reportable 06/22/18 01:02 Giant Platelets Not Reportable 06/22/18 01:02 Platelet Satelliting Not Reportable 06/22/18 01:02 Plt Morphology Comment Not Reportable 06/22/18 01:02 RBC Morphology Not Reportable 06/22/18 01:02 Dimorphic RBCs Not Reportable 06/22/18 01:02 Polychromasia Not Reportable 06/22/18 01:02 Hypochromasia Few 06/22/18 01:02 Poikilocytosis 1+ 06/22/18 01:02 Anisocytosis 1+ 06/22/18 01:02 Microcytosis Not Reportable 06/22/18 01:02 Macrocytosis Not Reportable 06/22/18 01:02 Spherocytes Not Reportable 06/22/18 01:02 Pappenheimer Bodies Not Reportable 06/22/18 01:02 Sickle Cells Not Reportable 06/22/18 01:02 Target Cells 1+ 06/22/18 01:02 Tear Drop Cells Not Reportable 06/22/18 01:02 Ovalocytes Not Reportable 06/22/18 01:02 Helmet Cells Not Reportable 06/22/18 01:02 [place] Bodies Not Reportable 06/22/18 01:02 [place] Rings Not Reportable 06/22/18 01:02 [place] Cells Not Reportable 06/22/18 01:02 Bite Cells Not Reportable 06/22/18 01:02 Crenated Cell Not Reportable 06/22/18 01:02 Elliptocytes Not Reportable 06/22/18 01:02 Acanthocytes (Spur) Not Reportable 06/22/18 01:02 Rouleaux Not Reportable 06/22/18 01:02 Hemoglobin C Crystals Not Reportable 06/22/18 01:02 Schistocytes Not Reportable 06/22/18 01:02 Malaria parasites Not Reportable 06/22/18 01:02 Tristen Bodies Not Reportable 06/22/18 01:02 Hem Pathologist Commnt No 06/22/18 01:02 PT 18.1 Sec. (12.2-14.9) H 06/22/18 01:02 INR 1.40 (0.87-1.13) H 06/22/18 01:02 APTT 71.9 Sec. (24.2-36.6) H* 06/22/18 01:02 D-Dimer 1064.09 ng/mlDDU (0-234) H 06/22/18 01:02 Sodium 133 mmol/L (137-145) L D 06/23/18 05:27 Potassium 2.8 mmol/L (3.6-5.0) L* 06/23/18 05:27 Chloride 98.6 mmol/L (98-107) 06/23/18 05:27 Carbon Dioxide 15 mmol/L (22-30) L 06/23/18 05:27 Anion Gap 22 mmol/L 06/23/18 05:27 BUN 20 mg/dL (9-20) 06/23/18 05:27 Creatinine 1.4 mg/dL (0.8-1.5) 06/23/18 05:27 Estimated GFR > 60 ml/min 06/23/18 05:27 BUN/Creatinine Ratio 14 % 06/23/18 05:27 Glucose 74 mg/dL (75-100) L 06/23/18 05:27 Lactic Acid 1.40 mmol/L (0.7-2.0) 06/23/18 05:27 Calcium 7.2 mg/dL (8.4-10.2) L 06/23/18 05:27 Total Bilirubin 22.80 mg/dL (0.1-1.2) H 06/23/18 05:27 Direct Bilirubin 4.5 mg/dL (0-0.2) H 06/22/18 07:22 Indirect Bilirubin 18.0 mg/dL 06/22/18 07:22 AST 266 units/L (5-40) H 06/23/18 05:27 ALT 63 units/L (7-56) H 06/23/18 05:27 Alkaline Phosphatase 239 units/L (35-129) H 06/23/18 05:27 Ammonia 106.0 umol/L (25-60) H 06/22/18 13:06 Troponin T < 0.010 ng/mL (0.00-0.029) 06/22/18 01:02 Total Protein 4.9 g/dL (6.3-8.2) L 06/23/18 05:27 Albumin 2.1 g/dL (3.9-5) L 06/23/18 05:27 Albumin/Globulin Ratio 0.8 % 06/23/18 05:27 Lipase 99 units/L (13-60) H 06/22/18 01:02 Plasma/Serum Alcohol 0.11 % (0-0.07) H 06/22/18 02:57 Active Medications - Current Medications Current Medications: Generic Name Dose Route Start Last Admin Trade Name Jaqueline PRN Reason Stop Dose Admin Metronidazole 500 mg in 100 mls @ 100 mls/hr 06/22/18 02:00 06/23/18 01:17 Flagyl 500 Mg/100 Ml IV 100 mls/hr Q8H BRISEYDA Administration Protocol Cefepime HCl 2 gm in 100 mls @ 200 mls/hr 06/22/18 10:00 06/22/18 23:05 Maxipime/Ns 2 Gm/100 Ml IV 200 mls/hr Q12HR BRISEYDA Administration Azithromycin 500 mg/ Sodium 250 mls @ 250 mls/hr 06/22/18 10:00 06/22/18 12:06 Chloride IV 250 mls/hr Q24HR BRISEYDA Administration Sodium Chloride 1,000 mls @ 125 mls/hr 06/22/18 15:00 06/23/18 05:05 Nacl 0.9% 1000 Ml IV 125 mls/hr DIRECT BRISEYDA Administration Lactulose 20 gm 06/22/18 08:00 06/23/18 00:37 Cephulac PO 20 gm Q8H BRISEYDA Administration Lorazepam 2 mg 06/22/18 11:03 06/22/18 16:19 Ativan IV 2 mg Q1HR PRN Administration CIWA-Ar 8-15 Lorazepam 4 mg 06/22/18 11:03 Ativan IV Q15MIN PRN CIWA-Ar >25 Morphine Sulfate 1 mg 06/22/18 18:02 Morphine IV Q6H PRN Pain, Moderate (4-6) Multivitamins 1 each 06/23/18 10:00 Theragran Tab PO QDAY BRISEYDA Ondansetron HCl 4 mg 06/22/18 03:10 Zofran IV Q8H PRN Nausea And Vomiting Rifaximin 550 mg 06/22/18 22:00 06/22/18 23:05 Xifaxan PO Not Given BID BRISEYDA
[2018-06-23] MEDS ORDERED: MAGNESIUM SULFATE IV ONE (08:10)
--- NOTE | 2018-06-23 08:49 | Progress Note ---
Assessment and Plan Impression: * Acute kidney injury secondary to prerenal azotemia * Sepsis --Blood cx: NGTD * RLE wound (polymicrobial: GNR, GNR 2, Enterococcus) * Hyponatremia * Syncope * Hyperbilirubinemia * Transaminitis * Alcohol abuse * Hypokalemia Plan: * Renal function and hyponatremia improved * Continue NS IVF for hydration * Patient is not a candidate for V2 receptor antagonist due to liver disease * GI recommendations noted * Abx per primary team * Replete lytes prn - note order for KCl runs * Avoid neprotoxins * Dose medications for renal function * Strict I/O Subjective Date of service: 06/23/18 Interval history: Patient has no complaint Objective - Vital Signs Vital signs: Vital Signs - 12hr 06/22/18 06/23/18 22:00 06:51 Temperature 97.8 F Pulse Rate 99 H Pulse Rate [ 102 H From Monitor] Respiratory 18 Rate Blood Pressure 121/83 O2 Sat by Pulse 100 Oximetry - General Appearance General appearance: well-developed, well-nourished, other (jaundiced) EENT: ATNC, sclera incterus Respiratory: Present: Clear to Ascultation Cardiology: regular, S1S2 Gastrointestinal: normal, no tenderness, no distended Integumentary: other (right LE wound bandaged) Musculoskeletal: other (no edema) Psychiatric: cooperative - Lab 06/24/18 05:20 06/23/18 14:30 Most recent lab results Calcium 7.2 mg/dL (8.4-10.2) L 06/23/18 05:27 Medications & Allergies - Medications Allergies/Adverse Reactions: Allergies No Known Allergies Allergy (Verified 02/22/16 11:50) Home Medications: Home Medications Medication Instructions Recorded Confirmed Last Taken Type Folic Acid [Folvite] 1 mg PO QDAY #30 tablet 09/19/17 02/24/18 Unknown Rx Multivitamin Tab [Multiple Vitamin 1 each PO QDAY #30 tablet 09/19/17 02/24/18 Unknown Rx TAB (Theragran)] Thiamine [Vitamin B-1] 100 mg PO QDAY #30 tablet 09/19/17 02/24/18 Unknown Rx hydrALAZINE [Apresoline TAB] 25 mg PO Q8HR #90 tablet 09/19/17 02/24/18 Unknown Rx Active Medications: Generic Name Dose Route Start Last Admin Trade Name Freq PRN Reason Stop Dose Admin Metronidazole 500 mg in 100 mls @ 100 mls/hr 06/22/18 02:00 06/23/18 01:17 Flagyl 500 Mg/100 Ml IV 100 mls/hr Q8H BRISEYDA Administration Protocol Cefepime HCl 2 gm in 100 mls @ 200 mls/hr 06/22/18 10:00 06/22/18 23:05 Maxipime/Ns 2 Gm/100 Ml IV 200 mls/hr Q12HR BRISEYDA Administration Azithromycin 500 mg/ Sodium 250 mls @ 250 mls/hr 06/22/18 10:00 06/22/18 12:06 Chloride IV 250 mls/hr Q24HR BRISEYDA Administration Sodium Chloride 1,000 mls @ 125 mls/hr 06/22/18 15:00 06/23/18 05:05 Nacl 0.9% 1000 Ml IV 125 mls/hr DIRECT BRISEYDA Administration Potassium Chloride 10 meq in 100 mls @ 100 mls/hr 06/23/18 09:00 Kcl 10meq/100ml IV 06/23/18 12:59 Q1H BRISEYDA Magnesium Sulfate 1 gm/ Sodium 52 mls @ 52 mls/hr 06/23/18 09:00 Chloride IV 06/23/18 09:59 ONCE ONE Lactulose 20 gm 06/22/18 08:00 06/23/18 00:37 Cephulac PO 20 gm Q8H BRISEYDA Administration Lorazepam 2 mg 06/22/18 11:03 06/22/18 16:19 Ativan IV 2 mg Q1HR PRN Administration CIWA-Ar 8-15 Lorazepam 4 mg 06/22/18 11:03 Ativan IV Q15MIN PRN CIWA-Ar >25 Morphine Sulfate 1 mg 06/22/18 18:02 Morphine IV Q6H PRN Pain, Moderate (4-6) Multivitamins 1 each 06/23/18 10:00 Theragran Tab PO QDAY [facility] Ondansetron HCl 4 mg 06/22/18 03:10 Zofran IV Q8H PRN Nausea And Vomiting Rifaximin 550 mg 06/22/18 22:00 06/22/18 23:05 Xifaxan PO Not Given BID [facility]
[2018-06-23] MEDS ORDERED: MAGNESIUM SULFATE 1 GM in NACL 0.9% 50 ML IV ONE (09:00)
[2018-06-23] MEDS: KCL 10MEQ/100ML 10 MEQ/100 ML BAG IV SCH ×6 (09:09→23:53)
--- NOTE | 2018-06-23 10:07 | Gastroenterology Progress Note ---
Assessment and Plan 1.elevated LFTs 2.jaundice 3.ETOH abuse -afebrile -WBC 8.0 -H/H 10.1/31.5 -plt 38, INR 1.40 -LFTs-T.kurt 22.80, AST 266, ALT 63, alk phos 239 -ammonia 106 -lipase 99 -alcohol level 0.11 on admission -abd U/S showed fatty infiltration of liver, distended gallbladder (no gallstones), and dilation of CBD (1.1 cm) -etiology- severe ETOH-related liver diseae (suspect underlying cirrhosis given history and labs) -clinically, patient remains somnolent and confused (oriented to person only). No evidence of abd pain, N/v, or signs of bleeding. Tolerating diet. -MR/MRCP for further evaluation of US results when mental status has improved -DF 41-no recommendations for steroids at this time given current sepsis as below -continue lactulose, xifaxan, empiric antibiotics, and MVI -continue to trend labs and supportive care (repeat INR in am) -alcohol cessation-[facility] protocol -electrolyte management per primary team -will follow 4.sepsis 5.chronic RLE wound -culture +moderate gram negative rods . Subjective Date of service: 06/23/18 Principal diagnosis: jaundice, alcoholic liver disease Interval history: Patient resting in bed this am w/o acute distress but noted to be somnolent and confused (oriented to person only). No evidence of abd pain, N/V, or signs of bleeding. Tolerating diet. Objective - Constitutional Vitals: Temp Pulse Resp BP Pulse Ox 97.8 F 99 H 18 121/83 100 06/23/18 06:51 06/23/18 06:51 06/23/18 06:51 06/23/18 06:51 06/23/18 06:51 General appearance: no acute distress, other (somnolent) - EENT Eyes: scleral icterus - Respiratory Respiratory: bilateral: CTA - Cardiovascular Rhythm: regular - Extremities Extremity abnormal: other (tremulous) - Gastrointestinal General gastrointestinal: Present: soft, non-tender, non-distended, normal bowel sounds - Neurologic Neurological: oriented to person - Labs CBC & Chem 7: 06/23/18 05:27 06/23/18 05:27 Labs: Laboratory Results - last 24 hr 03/06/22/18 06/22/18 13:06 13:06 14:50 WBC RBC Hgb Hct MCV MCH MCHC RDW Plt Count Sodium 126 L Potassium Chloride Carbon Dioxide Anion Gap BUN Creatinine Estimated GFR BUN/Creatinine Ratio Glucose Lactic Acid 3.60 H* Calcium Total Bilirubin AST ALT Alkaline Phosphatase Ammonia 106.0 H Total Protein Albumin Albumin/Globulin Ratio 06/22/18 06/23/18 06/23/18 16:50 05:27 05:27 WBC 8.0 RBC 3.06 L Hgb 10.1 L Hct 31.5 L MCV 103 H MCH 33 H MCHC 32 RDW 19.1 H Plt Count 38 L Sodium 133 L D Potassium 2.8 L* Chloride 98.6 Carbon Dioxide 15 L Anion Gap 22 BUN 20 Creatinine 1.4 Estimated GFR > 60 BUN/Creatinine Ratio 14 Glucose 74 L Lactic Acid 1.70 Calcium 7.2 L Total Bilirubin 22.80 H AST 266 H ALT 63 H Alkaline Phosphatase 239 H Ammonia Total Protein 4.9 L Albumin 2.1 L Albumin/Globulin Ratio 0.8 06/23/18 05:27 WBC RBC Hgb Hct MCV MCH MCHC RDW Plt Count Sodium Potassium Chloride Carbon Dioxide Anion Gap BUN Creatinine Estimated GFR BUN/Creatinine Ratio Glucose Lactic Acid 1.40 Calcium Total Bilirubin AST ALT Alkaline Phosphatase Ammonia Total Protein Albumin Albumin/Globulin Ratio
[2018-06-23] MEDS: THERAGRAN Tab PO SCH (10:37)
[2018-06-23] MEDS: XIFAXAN PO SCH ×2 (10:37→21:55)
[2018-06-23] MEDS: MAXIPIME/NS 2 GM/100 ML 2 GM/100 ML BAG IV SCH ×2 (14:06→21:50)
[2018-06-23] MEDS: ZITHROMAX 500 MG in NACL 0.9% 250ML 250 ML IV SCH (15:07)
--- NOTE | 2018-06-23 17:43 | Progress Note ---
Assessment and Plan Assessment and plan: Patient's a 59-year-old male with a history of EtOH abuse admitted with altered mental status. According to ED documentation the of the patient called paramedics because the patient had possible syncopal episode while in the shower information was treated with multiple variation as documented by the EMS. Nevertheless on presentation to the hospital patient was noted to have multiple laboratory abnormalities with "hyponatremic and has new onset hyperbilirubinemia. Patient had a low-grade temperature and some mild abdominal discomfort which is worrisome for cholangitis" as documented by the ED. There is also concern of possible syncopal episode while in the shower mentioned above. CT of the head is within normal limits. Chest x-ray shows that the patient did not take adequate breath however there is no obvious infiltrates. X-ray of the L-spine per my interpretation shows that the patient does have significant degenerative disease however there is no acute fracture XR Spine lumbosacral: Stable prominent Schmorl's deformities and multilevel compression deformities at the T12-L3 levels. US abdomen: IMPRESSION: Coarsely echogenic hepatic parenchyma consistent with fatty infiltration. Distended gallbladder with questionable trace pericholecystic fluid. No gallstones visualized. Dilatation of the common bile duct measuring approximately 1.1 cm. Distal obstructive process must be suspected. Further evaluation with CT and or correlation with MRCP should be co nsidered. If acute cholecystitis is clinically suspected, correlation with HIDA scan may be helpful.. V/Q scan: No PE MRCP: Pending Hepatic Encephalopathy Thrombocytopenia and worsening. Anemia SECODNARY TO ETOH AND LIVER DISFUNCTION Possible Choledocholethasis with LFT abnormalities Syncope possible vasovagal Dialated CBD with distended gall bladder Severe sepsis with >2 SOFA criteria Met Acute Kidney Injury with vasomotor nephropathy Hyponatremia Right Lower Ext Wound ETOH INTOXICATION Alcohol use disorder Metabolic Acidosis Lactic acidosis Hypokalemia Multilevel Compression deformities- T12-L3- No incontinence Plan Supportive care Aspiration/Seizure precaution Continue empiric antibiotic coverage Follow-up with cultures GI improved noted Orthopedic eval Obtain echocardiogram although doubt cardiac etiology Replace Potassium level Monitor sodium leveL Counselling on etoh cessation when awake Wound care consult May require further fluid resuscitation MRCP [facility] Protocol DVT/GI prophy . History Interval history: Patient Seen and examined this morning remains with altered mental status normal other adverse event reported overnight. some mild improvement Hospitalist Physical - Physical exam Narrative exam: VITAL SIGNS: Reviewed. GENERAL: The patient appeared disheveled appearing mumbles a few words, tremulous. Vital signs as documented. HEAD: No signs of head trauma. EYES: Pupils are equal. EARS: Hearing grossly intact. MOUTH: Oropharynx is normal. NECK: No adenopathy, no JVD. CHEST: Chest with clear breath sounds bilaterally. No wheezes, rales, or rhonchi. CARDIAC: Regular rate and rhythm. S1 and S2, without murmurs, gallops, or rubs. VASCULAR: Trace bilateral pitting Edema. Peripheral pulses normal and equal in all extremities. ABDOMEN: Soft, mildly distended and generalized tenderness. No rebound or guarding, and no masses palpated. Bowel Sounds normal. MUSCULOSKELETAL: Extremities without clubbing, cyanosis or edema. NEUROLOGIC EXAM: Altered sensorium PSYCHIATRIC: Unable to examine patient's altered. SKIN: No rash or lesions. - Constitutional Vitals: Temp Pulse Resp BP Pulse Ox 98.1 F 97 H 20 101/74 98 06/23/18 16:00 06/23/18 16:00 06/23/18 16:00 06/23/18 16:00 06/23/18 16:00 Results - Labs CBC & Chem 7: 06/24/18 05:20 06/24/18 05:20 Labs: Laboratory Last Values WBC 8.0 K/mm3 (4.5-11.0) 06/23/18 05:27 RBC 3.06 M/mm3 (3.65-5.03) L 06/23/18 05:27 Hgb 10.1 gm/dl (11.8-15.2) L 06/23/18 05:27 Hct 31.5 % (35.5-45.6) L 06/23/18 05:27 MCV 103 fl (84-94) H 06/23/18 05:27 MCH 33 pg (28-32) H 06/23/18 05:27 MCHC 32 % (32-34) 06/23/18 05:27 RDW 19.1 % (13.2-15.2) H 06/23/18 05:27 Plt Count 38 K/mm3 (140-440) L 06/23/18 05:27 Add Manual Diff Complete 06/22/18 01:02 Total Counted 100 06/22/18 01:02 Seg Neuts % (Manual) 84.0 % (40.0-70.0) H 06/22/18 01:02 Band Neutrophils % 0 % 06/22/18 01:02 Lymphocytes % (Manual) 9.0 % (13.4-35.0) L 06/22/18 01:02 Reactive Lymphs % (Man) 0 % 06/22/18 01:02 Monocytes % (Manual) 3.0 % (0.0-7.3) 06/22/18 01:02 Eosinophils % (Manual) 0 % (0.0-4.3) 06/22/18 01:02 Basophils % (Manual) 0 % (0.0-1.8) 06/22/18 01:02 Metamyelocytes % 0 % 06/22/18 01:02 Myelocytes % 4.0 % 06/22/18 01:02 Promyelocytes % 0 % 06/22/18 01:02 Blast Cells % 0 % 06/22/18 01:02 Nucleated RBC % 16.0 % (0.0-0.9) H 06/22/18 01:02 Seg Neutrophils # Man 6.5 K/mm3 (1.8-7.7) 06/22/18 01:02 Band Neutrophils # 0.0 K/mm3 06/22/18 01:02 Lymphocytes # (Manual) 0.7 K/mm3 (1.2-5.4) L 06/22/18 01:02 Abs React Lymphs (Man) 0.0 K/mm3 06/22/18 01:02 Monocytes # (Manual) 0.2 K/mm3 (0.0-0.8) 06/22/18 01:02 Eosinophils # (Manual) 0.0 K/mm3 (0.0-0.4) 06/22/18 01:02 Basophils # (Manual) 0.0 K/mm3 (0.0-0.1) 06/22/18 01:02 Metamyelocytes # 0.0 K/mm3 06/22/18 01:02 Myelocytes # 0.3 K/mm3 06/22/18 01:02 Promyelocytes # 0.0 K/mm3 06/22/18 01:02 Blast Cells # 0.0 K/mm3 06/22/18 01:02 WBC Morphology Not Reportable 06/22/18 01:02 Hypersegmented Neuts Not Reportable 06/22/18 01:02 Hyposegmented Neuts Not Reportable 06/22/18 01:02 Hypogranular Neuts Not Reportable 06/22/18 01:02 Smudge Cells Not Reportable 06/22/18 01:02 Toxic Granulation Not Reportable 06/22/18 01:02 Toxic Vacuolation Not Reportable 06/22/18 01:02 Dohle Bodies Not Reportable 06/22/18 01:02 Pelger-Huet Anomaly Not Reportable 06/22/18 01:02 Elaine Rods Not Reportable 06/22/18 01:02 Platelet Estimate Consistent w auto 06/22/18 01:02 Clumped Platelets Not Reportable 06/22/18 01:02 Plt Clumps, EDTA Not Reportable 06/22/18 01:02 Large Platelets Not Reportable 06/22/18 01:02 Giant Platelets Not Reportable 06/22/18 01:02 Platelet Satelliting Not Reportable 06/22/18 01:02 Plt Morphology Comment Not Reportable 06/22/18 01:02 RBC Morphology Not Reportable 06/22/18 01:02 Dimorphic RBCs Not Reportable 06/22/18 01:02 Polychromasia Not Reportable 06/22/18 01:02 Hypochromasia Few 06/22/18 01:02 Poikilocytosis 1+ 06/22/18 01:02 Anisocytosis 1+ 06/22/18 01:02 Microcytosis Not Reportable 06/22/18 01:02 Macrocytosis Not Reportable 06/22/18 01:02 Spherocytes Not Reportable 06/22/18 01:02 Pappenheimer Bodies Not Reportable 06/22/18 01:02 Sickle Cells Not Reportable 06/22/18 01:02 Target Cells 1+ 06/22/18 01:02 Tear Drop Cells Not Reportable 06/22/18 01:02 Ovalocytes Not Reportable 06/22/18 01:02 Helmet Cells Not Reportable 06/22/18 01:02 [place] Bodies Not Reportable 06/22/18 01:02 Ronan Rings Not Reportable 06/22/18 01:02 [place] Cells Not Reportable 06/22/18 01:02 Bite Cells Not Reportable 06/22/18 01:02 Crenated Cell Not Reportable 06/22/18 01:02 Elliptocytes Not Reportable 06/22/18 01:02 Acanthocytes (Spur) Not Reportable 06/22/18 01:02 Rouleaux Not Reportable 06/22/18 01:02 Hemoglobin C Crystals Not Reportable 06/22/18 01:02 Schistocytes Not Reportable 06/22/18 01:02 Malaria parasites Not Reportable 06/22/18 01:02 Tristen Bodies Not Reportable 06/22/18 01:02 Hem Pathologist Commnt No 06/22/18 01:02 PT 18.1 Sec. (12.2-14.9) H 06/22/18 01:02 INR 1.40 (0.87-1.13) H 06/22/18 01:02 APTT 71.9 Sec. (24.2-36.6) H* 06/22/18 01:02 D-Dimer 1064.09 ng/mlDDU (0-234) H 06/22/18 01:02 Sodium 133 mmol/L (137-145) L D 06/23/18 05:27 Potassium 3.0 mmol/L (3.6-5.0) L 06/23/18 14:30 Chloride 98.6 mmol/L (98-107) 06/23/18 05:27 Carbon Dioxide 15 mmol/L (22-30) L 06/23/18 05:27 Anion Gap 22 mmol/L 06/23/18 05:27 BUN 20 mg/dL (9-20) 06/23/18 05:27 Creatinine 1.4 mg/dL (0.8-1.5) 06/23/18 05:27 Estimated GFR > 60 ml/min 06/23/18 05:27 BUN/Creatinine Ratio 14 % 06/23/18 05:27 Glucose 74 mg/dL (75-100) L 06/23/18 05:27 Lactic Acid 1.40 mmol/L (0.7-2.0) 06/23/18 05:27 Calcium 7.2 mg/dL (8.4-10.2) L 06/23/18 05:27 Total Bilirubin 22.80 mg/dL (0.1-1.2) H 06/23/18 05:27 Direct Bilirubin 4.5 mg/dL (0-0.2) H 06/22/18 07:22 Indirect Bilirubin 18.0 mg/dL 06/22/18 07:22 AST 266 units/L (5-40) H 06/23/18 05:27 ALT 63 units/L (7-56) H 06/23/18 05:27 Alkaline Phosphatase 239 units/L (35-129) H 06/23/18 05:27 Ammonia 106.0 umol/L (25-60) H 06/22/18 13:06 Troponin T < 0.010 ng/mL (0.00-0.029) 06/22/18 01:02 Total Protein 4.9 g/dL (6.3-8.2) L 06/23/18 05:27 Albumin 2.1 g/dL (3.9-5) L 06/23/18 05:27 Albumin/Globulin Ratio 0.8 % 06/23/18 05:27 Lipase 99 units/L (13-60) H 06/22/18 01:02 Plasma/Serum Alcohol 0.11 % (0-0.07) H 06/22/18 02:57 Active Medications - Current Medications Current Medications: Generic Name Dose Route Start Last Admin Trade Name Freq PRN Reason Stop Dose Admin Metronidazole 500 mg in 100 mls @ 100 mls/hr 06/22/18 02:00 06/23/18 17:25 Flagyl 500 Mg/100 Ml IV 100 mls/hr Q8H BRISEYDA Administration Protocol Cefepime HCl 2 gm in 100 mls @ 200 mls/hr 06/22/18 10:00 06/23/18 14:06 Maxipime/Ns 2 Gm/100 Ml IV 200 mls/hr Q12HR BRISEYDA Administration Azithromycin 500 mg/ Sodium 250 mls @ 250 mls/hr 06/22/18 10:00 06/23/18 15:07 Chloride IV 250 mls/hr Q24HR BRISEYDA Administration Sodium Chloride 1,000 mls @ 125 mls/hr 06/22/18 15:00 06/23/18 05:05 Nacl 0.9% 1000 Ml IV 125 mls/hr DIRECT BRISEYDA Administration Lactulose 20 gm 06/22/18 08:00 06/23/18 16:41 Cephulac PO 20 gm Q8H BRISEYDA Administration Lorazepam 2 mg 06/22/18 11:03 06/22/18 16:19 Ativan IV 2 mg Q1HR PRN Administration CIWA-Ar 8-15 Lorazepam 4 mg 06/22/18 11:03 Ativan IV Q15MIN PRN CIWA-Ar >25 Morphine Sulfate 1 mg 06/22/18 18:02 Morphine IV Q6H PRN Pain, Moderate (4-6) Multivitamins 1 each 06/23/18 10:00 06/23/18 10:37 Theragran Tab PO 1 each QDAY BRISEYDA Administration Ondansetron HCl 4 mg 06/22/18 03:10 Zofran IV Q8H PRN Nausea And Vomiting Rifaximin 550 mg 06/22/18 22:00 06/23/18 10:37 Xifaxan PO 550 mg BID BRISEYDA Administration Nutrition/Malnutrition Assess - Dietary Evaluation Nutrition/Malnutrition Findings: Nutrition Notes Start: 06/23/18 14:11 Freq: Status: Active Protocol: Document 06/23/18 14:11 TW (Rec: 06/23/18 14:25 TW [id number]) Co-Sign 06/23/18 14:11 LP Nutrition Notes 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 Pt unable to speak clearly. Pt was able to answer yes/no questions. Pt denies chewing/swallowing difficulties, N/V/D, and any food allergies. Pt reports having a good appetite but not being able to eat without assistance. Noted family feeding pt at bedside. Percent of energy/protein needs met: 35%/23% Burn Absent Trauma Absent GI Symptoms None Food Allergy No Current % PO Poor (25-49%) Minimum of two criteria No #1 Nutrition Diagnosis Inadequate oral intake Etiology Clear liquid diet As Evidenced by Signs and Symptoms intake of less than 50% of kcal and pro needs Is patient on ventilator? No Is Patient Ambulatory and/or Out of Bed No REE-([facility]-confined to bed) 2208.168 Kcal/Kg value to use for calculation 16 Approximate Energy Requirements Using 1742 kcal/Kg Calculation Used for Recommendations Kcal/kg Additional Notes AdjBW: 86.72kg pro: 69-87g/day (0.8-1g/kg) fluid: 1mL/kcal Nutrition Intervention Change Diet Order: Advance when medically feasible Goal #1 Diet advancement Goal #2 Meet at least 75% of kcal and pro needs Anticipated Discharge Needs: Unable to determine at this time Follow-Up By: 06/25/18 Additional Comments F/U for diet advancement, intakes
[2018-06-24] MEDS: KCL 10MEQ/100ML 10 MEQ/100 ML BAG IV SCH ×4 (00:42→14:48)
[2018-06-24] MEDS: CEPHULAC PO SCH ×3 (01:54→09:18)
[2018-06-24] MEDS: FLAGYL 500 MG/100 ML 500 MG/100 ML BAG IV SCH ×3 (02:30→19:14)
[2018-06-24 06:49] LABS: Hematocrit 29.8 % (35.5-45.6); Hemoglobin 9.7 gm/dl (11.8-15.2); Mean Corpuscular HGB Conc 32 % (32-34); Mean Corpuscular Volume 105 fl (84-94); Red Blood Count 2.85 M/mm3 (3.65-5.03); Red Cell Distribution Width 19.8 % (13.2-15.2)
[2018-06-24 06:50] LABS: Platelet Count 46 K/mm3 (140-440)
[2018-06-24 06:58] LABS: Alanine Aminotransferase 50 units/L (7-56); BUN/Creatinine Ratio 26; Blood Urea Nitrogen 18 mg/dL (9-20); Hemolysis Index 2
[2018-06-24] MEDS: MAXIPIME/NS 2 GM/100 ML 2 GM/100 ML BAG IV SCH ×2 (09:17→21:59)
[2018-06-24] MEDS: ATIVAN IV PRN ×3 (09:18→22:16)
[2018-06-24] MEDS: XIFAXAN PO SCH ×2 (09:18→21:59)
[2018-06-24] MEDS: THERAGRAN Tab PO SCH (09:18)
--- NOTE | 2018-06-24 09:24 | Progress Note ---
Assessment and Plan Impression: * Acute kidney injury secondary to prerenal azotemia * Sepsis --Blood cx: NGTD * RLE wound (polymicrobial: GNR, GNR 2, Enterococcus) * Hyponatremia * Syncope * Hyperbilirubinemia * Transaminitis * Alcohol abuse * Hypokalemia * Metabolic acidosis Plan: * Renal function improved - DANG resolved * Continue NS IVF for hydration. Patient is not a candidate for V2 receptor antagonist due to liver disease * Replete lytes prn - will order KCl IV today * Start po NaBicarbonate * GI recommendations noted * Abx per primary team * Avoid neprotoxins * Dose medications for renal function * Strict I/O * Will follow peripherally Subjective Date of service: 06/24/18 Principal diagnosis: jaundice, alcoholic liver disease Interval history: Patient has no complaint Objective - Vital Signs Vital signs: Vital Signs - 12hr 06/23/18 06/24/18 22:25 05:27 Temperature 98.4 F 98.5 F Pulse Rate 91 H 95 H Respiratory 18 18 Rate Blood Pressure 115/80 112/79 O2 Sat by Pulse 99 97 Oximetry - General Appearance General appearance: well-developed, well-nourished, other (jaundiced) EENT: ATNC, sclera incterus Respiratory: Present: Clear to Ascultation Cardiology: regular, S1S2 Gastrointestinal: normal, no tenderness, no distended Integumentary: warm and dry, other (RLE wound bandaged) Neurologic: other (tremulous) Psychiatric: cooperative - Lab 06/24/18 05:20 06/25/18 07:15 Most recent lab results Calcium 7.0 mg/dL (8.4-10.2) L 06/24/18 05:20 Medications & Allergies - Medications Allergies/Adverse Reactions: Allergies No Known Allergies Allergy (Verified 02/22/16 11:50) Home Medications: Home Medications Medication Instructions Recorded Confirmed Last Taken Type Folic Acid [Folvite] 1 mg PO QDAY #30 tablet 09/19/17 02/24/18 Unknown Rx Multivitamin Tab [Multiple Vitamin 1 each PO QDAY #30 tablet 09/19/17 02/24/18 Unknown Rx TAB (Theragran)] Thiamine [Vitamin B-1] 100 mg PO QDAY #30 tablet 09/19/17 02/24/18 Unknown Rx hydrALAZINE [Apresoline TAB] 25 mg PO Q8HR #90 tablet 09/19/17 02/24/18 Unknown Rx Active Medications: Generic Name Dose Route Start Last Admin Trade Name Freq PRN Reason Stop Dose Admin Metronidazole 500 mg in 100 mls @ 100 mls/hr 06/22/18 02:00 06/24/18 02:30 Flagyl 500 Mg/100 Ml IV 100 mls/hr Q8H BRISEYDA Administration Protocol Cefepime HCl 2 gm in 100 mls @ 200 mls/hr 06/22/18 10:00 06/24/18 09:17 Maxipime/Ns 2 Gm/100 Ml IV 200 mls/hr Q12HR BRISEYDA Administration Azithromycin 500 mg/ Sodium 250 mls @ 250 mls/hr 06/22/18 10:00 06/23/18 15:07 Chloride IV 250 mls/hr Q24HR BRISEYDA Administration Sodium Chloride 1,000 mls @ 125 mls/hr 06/22/18 15:00 06/23/18 21:55 Nacl 0.9% 1000 Ml IV 125 mls/hr DIRECT BRISEYDA Administration Lactulose 20 gm 06/22/18 08:00 06/24/18 09:18 Cephulac PO 20 gm Q8H BRISEYDA Administration Lorazepam 2 mg 06/22/18 11:03 06/24/18 09:18 Ativan IV 2 mg Q1HR PRN Administration CIWA-Ar 8-15 Lorazepam 4 mg 06/22/18 11:03 Ativan IV Q15MIN PRN CIWA-Ar >25 Morphine Sulfate 1 mg 06/22/18 18:02 Morphine IV Q6H PRN Pain, Moderate (4-6) Multivitamins 1 each 06/23/18 10:00 06/24/18 09:18 Theragran Tab PO 1 each QDAY BRISEYDA Administration Ondansetron HCl 4 mg 06/22/18 03:10 Zofran IV Q8H PRN Nausea And Vomiting Rifaximin 550 mg 06/22/18 22:00 06/24/18 09:18 Xifaxan PO 550 mg BID BRISEYDA Administration
[2018-06-24] MEDS ORDERED: [UNRECOGNIZED DRUG - OTHER] IV SCH (10:00)
[2018-06-24] MEDS ORDERED: D5 IV SCH (10:00)
[2018-06-24] MEDS ORDERED: KCL IV SCH (10:00)
--- NOTE | 2018-06-24 13:53 | Gastroenterology Progress Note ---
Assessment and Plan - Patient Problems (1) Acute alcoholic hepatitis Current Visit: Yes Status: Acute Plan to address problem: - Patient clinically improved, and labs stable. - Will add trental given DF >30; would prefer steroids but patient has an active leg ulcer. - Continue current MVI therapy, and CIWA protocol. - Since mental status improved, and no N/V, will advance to regular diet. - Patient would benefit from inpatient rehab if covered on insurance plan. Subjective Date of service: 06/24/18 Principal diagnosis: Alcoholic Liver Disease Interval history: The patient is less tremulous and agitated today. Tolerating a liquid diet (but small amounts). No bleeding noted, and remains oriented to self and hospital. No seizure activity noted. Objective - Constitutional Vitals: Temp Pulse Resp BP Pulse Ox 97.2 F L 119 H 20 119/90 98 06/24/18 10:30 06/24/18 10:30 06/24/18 10:30 06/24/18 10:30 06/24/18 10:30 General appearance: no acute distress - EENT Eyes: PERRL, EOM intact, scleral icterus ENT: hearing intact - Respiratory Respiratory effort: normal Respiratory: bilateral: CTA - Cardiovascular Rhythm: regular Heart Sounds: Present: S1 & S2 - Gastrointestinal General gastrointestinal: Present: soft, non-tender, distended (Mild ascites (probable)) - Labs CBC & Chem 7: 06/24/18 05:20 06/24/18 05:20 Labs: Laboratory Results - last 24 hr 06/23/18 06/24/18 06/24/18 14:30 05:20 05:20 WBC 9.4 RBC 2.85 L Hgb 9.7 L Hct 29.8 L MCV 105 H MCH 34 H MCHC 32 RDW 19.8 H Plt Count 46 L Sodium 136 L Potassium 3.0 L 3.3 L Chloride 106.7 Carbon Dioxide 15 L Anion Gap 18 BUN 18 Creatinine 0.7 L Estimated GFR > 60 BUN/Creatinine Ratio 26 Glucose 69 L Calcium 7.0 L Total Bilirubin 23.40 H AST 198 H ALT 50 Alkaline Phosphatase 243 H Total Protein 4.6 L Albumin 2.0 L Albumin/Globulin Ratio 0.8
[2018-06-24] MEDS: ZITHROMAX 500 MG in NACL 0.9% 250ML 250 ML IV SCH (14:48)
[2018-06-24] MEDS: SODIUM BICARBONATE PO SCH ×2 (14:48→21:58)
--- NOTE | 2018-06-24 15:13 | Progress Note ---
Assessment and Plan Assessment and plan: Patient's a 59-year-old male with a history of EtOH abuse admitted with altered mental status. According to ED documentation the of the patient called paramedics because the patient had possible syncopal episode while in the shower information was treated with multiple variation as documented by the EMS. Nevertheless on presentation to the hospital patient was noted to have multiple laboratory abnormalities with "hyponatremic and has new onset hyperbilirubinemia. Patient had a low-grade temperature and some mild abdominal discomfort which is worrisome for cholangitis" as documented by the ED. There is also concern of possible syncopal episode while in the shower mentioned above. CT of the head is within normal limits. Chest x-ray shows that the patient did not take adequate breath however there is no obvious infiltrates. X-ray of the L-spine per my interpretation shows that the patient does have significant degenerative disease however there is no acute fracture XR Spine lumbosacral: Stable prominent Schmorl's deformities and multilevel compression deformities at the T12-L3 levels. US abdomen: IMPRESSION: Coarsely echogenic hepatic parenchyma consistent with fatty infiltration. Distended gallbladder with questionable trace pericholecystic fluid. No gallstones visualized. Dilatation of the common bile duct measuring approximately 1.1 cm. Distal obstructive process must be suspected. Further evaluation with CT and or correlation with MRCP should be co nsidered. If acute cholecystitis is clinically suspected, correlation with HIDA scan may be helpful.. V/Q scan: No PE MRCP: Pending Hepatic Encephalopathy Thrombocytopenia secondary to ETOH bone marrow suppresion Diastolic Congestive Heart failure-Chronic Anemia SECONDARY TO ETOH AND LIVER DISFUNCTION Acute Alcoholic Hepatitis Possible Choledocholethasis with LFT abnormalities Syncope possible vasovagal Dialated CBD with distended gall bladder Severe sepsis with >2 SOFA criteria Met Acute Kidney Injury with vasomotor nephropathy-Resolved Hyponatremia Right Lower Ext Wound- with positive culture GNR ETOH INTOXICATION Alcohol use disorder Metabolic Acidosis Lactic acidosis Hypokalemia Multilevel Compression deformities- T12-L3- No incontinence Plan Supportive care Aspiration/Seizure precaution Trental added by GI due to elevated DF >30, Steroids not given due to active leg ulcer Will also obtain Surgical consult for the wound Change fluids to D5 1/2 NS with K. Continue empiric antibiotic coverage Follow-up with cultures GI improved noted Orthopedic eval pending Replace Potassium level Monitor sodium leveL Counselling on etoh cessation when awake Wound care consult MRCP pending [facility] Protocol DVT/GI prophy . History Interval history: Patient Seen and examined this morning remains with altered mental status although more awake, but still tremolous and confabulating. Hospitalist Physical - Physical exam Narrative exam: VITAL SIGNS: Reviewed. GENERAL: The patient appeared still with tremulous. Vital signs as documented. HEAD: No signs of head trauma. EYES: Pupils are equal. EARS: Hearing grossly intact. MOUTH: Oropharynx is normal. NECK: No adenopathy, no JVD. CHEST: Chest with clear breath sounds bilaterally. No wheezes, rales, or rhonchi. CARDIAC: Regular rate and rhythm. S1 and S2, without murmurs, gallops, or rubs. VASCULAR: Trace bilateral pitting Edema. Peripheral pulses normal and equal in all extremities. ABDOMEN: Soft, mildly distended and generalized tenderness. No rebound or guarding, and no masses palpated. Bowel Sounds normal. MUSCULOSKELETAL: Extremities without clubbing, cyanosis or edema. NEUROLOGIC EXAM: Altered sensorium PSYCHIATRIC: Unable to examine patient's altered. SKIN: Right leg chronic wound, echymosis at the back. - Constitutional Vitals: Temp Pulse Resp BP Pulse Ox 97.2 F L 119 H 20 119/90 98 06/24/18 10:30 06/24/18 10:30 06/24/18 10:30 06/24/18 10:30 06/24/18 10:30 Results - Labs CBC & Chem 7: 06/24/18 05:20 06/24/18 05:20 Labs: Laboratory Last Values WBC 9.4 K/mm3 (4.5-11.0) 06/24/18 05:20 RBC 2.85 M/mm3 (3.65-5.03) L 06/24/18 05:20 Hgb 9.7 gm/dl (11.8-15.2) L 06/24/18 05:20 Hct 29.8 % (35.5-45.6) L 06/24/18 05:20 MCV 105 fl (84-94) H 06/24/18 05:20 MCH 34 pg (28-32) H 06/24/18 05:20 MCHC 32 % (32-34) 06/24/18 05:20 RDW 19.8 % (13.2-15.2) H 06/24/18 05:20 Plt Count 46 K/mm3 (140-440) L 06/24/18 05:20 Add Manual Diff Complete 06/22/18 01:02 Total Counted 100 06/22/18 01:02 Seg Neuts % (Manual) 84.0 % (40.0-70.0) H 06/22/18 01:02 Band Neutrophils % 0 % 06/22/18 01:02 Lymphocytes % (Manual) 9.0 % (13.4-35.0) L 06/22/18 01:02 Reactive Lymphs % (Man) 0 % 06/22/18 01:02 Monocytes % (Manual) 3.0 % (0.0-7.3) 06/22/18 01:02 Eosinophils % (Manual) 0 % (0.0-4.3) 06/22/18 01:02 Basophils % (Manual) 0 % (0.0-1.8) 06/22/18 01:02 Metamyelocytes % 0 % 06/22/18 01:02 Myelocytes % 4.0 % 06/22/18 01:02 Promyelocytes % 0 % 06/22/18 01:02 Blast Cells % 0 % 06/22/18 01:02 Nucleated RBC % 16.0 % (0.0-0.9) H 06/22/18 01:02 Seg Neutrophils # Man 6.5 K/mm3 (1.8-7.7) 06/22/18 01:02 Band Neutrophils # 0.0 K/mm3 06/22/18 01:02 Lymphocytes # (Manual) 0.7 K/mm3 (1.2-5.4) L 06/22/18 01:02 Abs React Lymphs (Man) 0.0 K/mm3 06/22/18 01:02 Monocytes # (Manual) 0.2 K/mm3 (0.0-0.8) 06/22/18 01:02 Eosinophils # (Manual) 0.0 K/mm3 (0.0-0.4) 06/22/18 01:02 Basophils # (Manual) 0.0 K/mm3 (0.0-0.1) 06/22/18 01:02 Metamyelocytes # 0.0 K/mm3 06/22/18 01:02 Myelocytes # 0.3 K/mm3 06/22/18 01:02 Promyelocytes # 0.0 K/mm3 06/22/18 01:02 Blast Cells # 0.0 K/mm3 06/22/18 01:02 WBC Morphology Not Reportable 06/22/18 01:02 Hypersegmented Neuts Not Reportable 06/22/18 01:02 Hyposegmented Neuts Not Reportable 06/22/18 01:02 Hypogranular Neuts Not Reportable 06/22/18 01:02 Smudge Cells Not Reportable 06/22/18 01:02 Toxic Granulation Not Reportable 06/22/18 01:02 Toxic Vacuolation Not Reportable 06/22/18 01:02 Dohle Bodies Not Reportable 06/22/18 01:02 Pelger-Huet Anomaly Not Reportable 06/22/18 01:02 Elaine Rods Not Reportable 06/22/18 01:02 Platelet Estimate Consistent w auto 06/22/18 01:02 Clumped Platelets Not Reportable 06/22/18 01:02 Plt Clumps, EDTA Not Reportable 06/22/18 01:02 Large Platelets Not Reportable 06/22/18 01:02 Giant Platelets Not Reportable 06/22/18 01:02 Platelet Satelliting Not Reportable 06/22/18 01:02 Plt Morphology Comment Not Reportable 06/22/18 01:02 RBC Morphology Not Reportable 06/22/18 01:02 Dimorphic RBCs Not Reportable 06/22/18 01:02 Polychromasia Not Reportable 06/22/18 01:02 Hypochromasia Few 06/22/18 01:02 Poikilocytosis 1+ 06/22/18 01:02 Anisocytosis 1+ 06/22/18 01:02 Microcytosis Not Reportable 06/22/18 01:02 Macrocytosis Not Reportable 06/22/18 01:02 Spherocytes Not Reportable 06/22/18 01:02 Pappenheimer Bodies Not Reportable 06/22/18 01:02 Sickle Cells Not Reportable 06/22/18 01:02 Target Cells 1+ 06/22/18 01:02 Tear Drop Cells Not Reportable 06/22/18 01:02 Ovalocytes Not Reportable 06/22/18 01:02 Helmet Cells Not Reportable 06/22/18 01:02 Lara-Joaquin Bodies Not Reportable 06/22/18 01:02 [place] Rings Not Reportable 06/22/18 01:02 Maupin Cells Not Reportable 06/22/18 01:02 Bite Cells Not Reportable 06/22/18 01:02 Crenated Cell Not Reportable 06/22/18 01:02 Elliptocytes Not Reportable 06/22/18 01:02 Acanthocytes (Spur) Not Reportable 06/22/18 01:02 Rouleaux Not Reportable 06/22/18 01:02 Hemoglobin C Crystals Not Reportable 06/22/18 01:02 Schistocytes Not Reportable 06/22/18 01:02 Malaria parasites Not Reportable 06/22/18 01:02 Tristen Bodies Not Reportable 06/22/18 01:02 Hem Pathologist Commnt No 06/22/18 01:02 PT 18.1 Sec. (12.2-14.9) H 06/22/18 01:02 INR 1.40 (0.87-1.13) H 06/22/18 01:02 APTT 71.9 Sec. (24.2-36.6) H* 06/22/18 01:02 D-Dimer 1064.09 ng/mlDDU (0-234) H 06/22/18 01:02 Sodium 136 mmol/L (137-145) L 06/24/18 05:20 Potassium 3.3 mmol/L (3.6-5.0) L 06/24/18 05:20 Chloride 106.7 mmol/L (98-107) 06/24/18 05:20 Carbon Dioxide 15 mmol/L (22-30) L 06/24/18 05:20 Anion Gap 18 mmol/L 06/24/18 05:20 BUN 18 mg/dL (9-20) 06/24/18 05:20 Creatinine 0.7 mg/dL (0.8-1.5) L 06/24/18 05:20 Estimated GFR > 60 ml/min 06/24/18 05:20 BUN/Creatinine Ratio 26 % 06/24/18 05:20 Glucose 69 mg/dL (75-100) L 06/24/18 05:20 Lactic Acid 1.40 mmol/L (0.7-2.0) 06/23/18 05:27 Calcium 7.0 mg/dL (8.4-10.2) L 06/24/18 05:20 Total Bilirubin 23.40 mg/dL (0.1-1.2) H 06/24/18 05:20 Direct Bilirubin 4.5 mg/dL (0-0.2) H 06/22/18 07:22 Indirect Bilirubin 18.0 mg/dL 06/22/18 07:22 AST 198 units/L (5-40) H 06/24/18 05:20 ALT 50 units/L (7-56) 06/24/18 05:20 Alkaline Phosphatase 243 units/L (35-129) H 06/24/18 05:20 Ammonia 106.0 umol/L (25-60) H 06/22/18 13:06 Troponin T < 0.010 ng/mL (0.00-0.029) 06/22/18 01:02 Total Protein 4.6 g/dL (6.3-8.2) L 06/24/18 05:20 Albumin 2.0 g/dL (3.9-5) L 06/24/18 05:20 Albumin/Globulin Ratio 0.8 % 06/24/18 05:20 Lipase 99 units/L (13-60) H 06/22/18 01:02 Plasma/Serum Alcohol 0.11 % (0-0.07) H 06/22/18 02:57 Active Medications - Current Medications Current Medications: Generic Name Dose Route Start Last Admin Trade Name Freq PRN Reason Stop Dose Admin Azithromycin 500 mg 06/25/18 10:00 Zithromax PO QDAY BRISEYDA Metronidazole 500 mg in 100 mls @ 100 mls/hr 06/22/18 02:00 06/24/18 11:18 Flagyl 500 Mg/100 Ml IV 100 mls/hr Q8H BRISEYDA Administration Protocol Cefepime HCl 2 gm in 100 mls @ 200 mls/hr 06/22/18 10:00 06/24/18 09:17 Maxipime/Ns 2 Gm/100 Ml IV 200 mls/hr Q12HR BRISEYDA Administration Potassium Chloride/Dextrose/Sod Cl 30 meq in 1,000 mls @ 125 mls/hr 06/24/18 10:00 D5w/0.45% Nacl/Kcl 30 Meq IV DIRECT BRISEYDA Lactulose 20 gm 06/24/18 22:00 Cephulac PO BID BRISEYDA Lorazepam 2 mg 06/22/18 11:03 06/24/18 14:48 Ativan IV 2 mg Q1HR PRN Administration CIWA-Ar 8-15 Lorazepam 4 mg 06/22/18 11:03 Ativan IV Q15MIN PRN CIWA-Ar >25 Morphine Sulfate 1 mg 06/22/18 18:02 Morphine IV Q6H PRN Pain, Moderate (4-6) Multivitamins 1 each 06/23/18 10:00 06/24/18 09:18 Theragran Tab PO 1 each QDAY BRISEYDA Administration Ondansetron HCl 4 mg 06/22/18 03:10 Zofran IV Q8H PRN Nausea And Vomiting Pentoxifylline 400 mg 06/24/18 22:00 Trental PO Q12HR BRISEYDA Rifaximin 550 mg 06/22/18 22:00 06/24/18 09:18 Xifaxan PO 550 mg BID BRISEYDA Administration Sodium Bicarbonate 1,300 mg 06/24/18 14:00 06/24/18 14:48 Sodium Bicarbonate PO 1,300 mg TID BRISEYDA Administration Nutrition/Malnutrition Assess - Dietary Evaluation Nutrition/Malnutrition Findings: Nutrition Notes Start: 06/23/18 14:11 Freq: Status: Active Protocol: Document 06/23/18 14:11 TW (Rec: 06/23/18 14:25 TW [id number]) Co-Sign 06/23/18 14:11 LP Nutrition Notes 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 Pt unable to speak clearly. Pt was able to answer yes/no questions. Pt denies chewing/swallowing difficulties, N/V/D, and any food allergies. Pt reports having a good appetite but not being able to eat without assistance. Noted family feeding pt at bedside. Percent of energy/protein needs met: 35%/23% Burn Absent Trauma Absent GI Symptoms None Food Allergy No Current % PO Poor (25-49%) Minimum of two criteria No #1 Nutrition Diagnosis Inadequate oral intake Etiology Clear liquid diet As Evidenced by Signs and Symptoms intake of less than 50% of kcal and pro needs Is patient on ventilator? No Is Patient Ambulatory and/or Out of Bed No REE-([facility]-confined to bed) 2208.168 Kcal/Kg value to use for calculation 16 Approximate Energy Requirements Using 1742 kcal/Kg Calculation Used for Recommendations Kcal/kg Additional Notes AdjBW: 86.72kg pro: 69-87g/day (0.8-1g/kg) fluid: 1mL/kcal Nutrition Intervention Change Diet Order: Advance when medically feasible Goal #1 Diet advancement Goal #2 Meet at least 75% of kcal and pro needs Anticipated Discharge Needs: Unable to determine at this time Follow-Up By: 06/25/18 Additional Comments F/U for diet advancement, intakes
[2018-06-24] MEDS: D5W/0.45% NACL/KCL 30 MEQ 30 MEQ/1,000 ML BAG IV SCH (17:47)
[2018-06-24] MEDS: TRENTAL PO SCH (21:59)
[2018-06-24] MEDS ORDERED: CEPHULAC PO SCH (22:00)
[2018-06-25] MEDS: D5W/0.45% NACL/KCL 30 MEQ 30 MEQ/1,000 ML BAG IV SCH ×2 (01:47→10:23)
[2018-06-25] MEDS: ATIVAN IV PRN ×4 (01:51→21:29)
[2018-06-25] MEDS: FLAGYL 500 MG/100 ML 500 MG/100 ML BAG IV SCH ×3 (03:05→18:16)
[2018-06-25 06:46] LABS: BUN/Creatinine Ratio TNR; Blood Urea Nitrogen TNR mg/dL (9-20)
[2018-06-25 06:47] LABS: Alanine Aminotransferase TNR units/L (7-56); Calcium TNR mg/dL (8.4-10.2)
[2018-06-25 06:48] LABS: Albumin TNR g/dL (3.9-5); Hemolysis Index TNR
[2018-06-25 07:57] LABS: Alanine Aminotransferase 48 units/L (7-56); BUN/Creatinine Ratio 95; Blood Urea Nitrogen 19 mg/dL (9-20); Calcium 7.2 mg/dL (8.4-10.2); Hemolysis Index 4
[2018-06-25] MEDS: SODIUM BICARBONATE PO SCH ×3 (08:11→21:26)
[2018-06-25] MEDS ORDERED: MAGNESIUM SULFATE IV ONE ×2 (08:29→16:42)
[2018-06-25] MEDS: MAXIPIME/NS 2 GM/100 ML 2 GM/100 ML BAG IV SCH ×2 (10:27→21:26)
[2018-06-25] MEDS: THERAGRAN Tab PO SCH (10:36)
[2018-06-25] MEDS: ZITHROMAX PO SCH (10:36)
[2018-06-25] MEDS: XIFAXAN PO SCH ×2 (10:36→21:29)
[2018-06-25] MEDS: TRENTAL PO SCH ×2 (10:36→21:27)
--- NOTE | 2018-06-25 11:33 | Gastroenterology Progress Note ---
Assessment and Plan 1.elevated LFTs 2.jaundice 3.ETOH abuse -afebrile -WBC 9.4 -H/H 9.7/29.8 -plt 46, INR 1.40 on 06/22 -LFTs-T.kurt 27.50, AST 210, ALT48, alk phos 278 -ammonia 106 06/22 -lipase 99 -alcohol level 0.11 on admission -abd U/S showed fatty infiltration of liver, distended gallbladder (no gallstones), and dilation of CBD (1.1 cm) -etiology- acute alcoholic hepatitis (suspect underlying cirrhosis given history and labs) -clinically, patient remains somnolent. No evidence of abd pain, N/v, or signs of bleeding. Tolerating diet. -MR/MRCP for further evaluation of US results (pending family consent or when patient's mental status as improved) -DF >30-continue trental (would prefer steroids but patient has an active leg ulcer) -continue lactulose, xifaxan, empiric antibiotics, and MVI -will order repeat INR -continue to trend labs and supportive care -alcohol cessation-CIWA protocol -electrolyte management per primary team -will follow 4.sepsis 5.chronic RLE wound -culture +moderate gram negative rods Subjective Date of service: 06/25/18 Principal diagnosis: jaundice, alcoholic liver disease Interval history: Patient resting in bed this am w/o acute distress but noted to be somnolent. No evidence of abd pain, N/V, or signs of bleeding. Tolerating diet. Objective - Constitutional Vitals: Temp Pulse Resp BP Pulse Ox 98.2 F 87 22 144/82 100 06/25/18 06:09 06/25/18 06:09 06/25/18 06:09 06/25/18 06:09 06/25/18 06:09 General appearance: no acute distress, other (somnolent) - EENT Eyes: scleral icterus - Respiratory Respiratory: bilateral: CTA - Cardiovascular Rhythm: regular - Gastrointestinal General gastrointestinal: Present: soft, non-tender, non-distended, normal bowel sounds - Labs CBC & Chem 7: 06/24/18 05:20 06/25/18 07:15 Labs: Laboratory Results - last 24 hr 06/25/18 06/25/18 05:22 07:15 Sodium TNR 142 Potassium TNR 3.3 L Chloride TNR 111.3 H Carbon Dioxide TNR 17 L Anion Gap TNR 17 BUN TNR 19 Creatinine TNR 0.2 L D Estimated GFR TNR > 60 BUN/Creatinine Ratio TNR 95 Glucose TNR 110 H Calcium TNR 7.2 L Total Bilirubin TNR 27.50 H AST TNR 210 H ALT TNR 48 Alkaline Phosphatase TNR 278 H Total Protein TNR 4.9 L Albumin TNR 2.0 L Albumin/Globulin Ratio TNR 0.7
--- NOTE | 2018-06-25 12:13 | Consultation ---
History of Present Illness Consult date: 06/25/18 Reason for consult: other (Right leg ulcer) - History of present illness History of present illness: 59 yo non-diabetic male with a chronic right leg ulcer. Past History Past Medical History: hypertension Past Surgical History: No surgical history Social history: no significant social history Family history: no significant family history Medications and Allergies Allergies Allergy/AdvReac Type Severity Reaction Status Date / Time No Known Allergies Allergy Verified 02/22/16 11:50 Home Medications Medication Instructions Recorded Confirmed Last Taken Type Folic Acid [Folvite] 1 mg PO QDAY #30 tablet 09/19/17 02/24/18 Unknown Rx Multivitamin Tab [Multiple Vitamin 1 each PO QDAY #30 tablet 09/19/17 02/24/18 Unknown Rx TAB (Theragran)] Thiamine [Vitamin B-1] 100 mg PO QDAY #30 tablet 09/19/17 02/24/18 Unknown Rx hydrALAZINE [Apresoline TAB] 25 mg PO Q8HR #90 tablet 09/19/17 02/24/18 Unknown Rx Active Meds: Active Medications Azithromycin (Zithromax) 500 mg PO QDAY BRISEYDA Last Admin: 06/25/18 10:36 Dose: 500 mg Documented by: Metronidazole (Flagyl 500 Mg/100 Ml) 500 mg in 100 mls @ 100 mls/hr IV Q8H BRISEYDA; Protocol Last Admin: 06/25/18 10:24 Dose: 100 mls/hr Documented by: Cefepime HCl (Maxipime/Ns 2 Gm/100 Ml) 2 gm in 100 mls @ 200 mls/hr IV Q12HR BRISEYDA Last Admin: 06/25/18 10:27 Dose: 200 mls/hr Documented by: Potassium Chloride/Dextrose/Sod Cl (D5w/0.45% Nacl/Kcl 30 Meq) 30 meq in 1,000 mls @ 125 mls/hr IV DIRECT BRISEYDA Last Admin: 06/25/18 10:23 Dose: 125 mls/hr Documented by: Potassium Chloride (Kcl 10meq/100ml) 10 meq in 100 mls @ 100 mls/hr IV Q1H BRISEYDA Stop: 06/25/18 12:59 Lactulose (Cephulac) 20 gm PO Q8H BRISEYDA Lorazepam (Ativan) 2 mg IV Q1HR PRN PRN Reason: CIWA-Ar 8-15 Last Admin: 06/25/18 03:14 Dose: 2 mg Documented by: Lorazepam (Ativan) 4 mg IV Q15MIN PRN PRN Reason: CIWA-Ar >25 Last Admin: 06/25/18 00:24 Dose: 2 mg Documented by: Magnesium Sulfate (Magnesium Sulfate) 1 gm IV ONCE ONE Stop: 06/25/18 08:30 Morphine Sulfate (Morphine) 1 mg IV Q6H PRN PRN Reason: Pain, Moderate (4-6) Multivitamins (Theragran Tab) 1 each PO QDAY [facility] Last Admin: 06/25/18 10:36 Dose: 1 each Documented by: Ondansetron HCl (Zofran) 4 mg IV Q8H PRN PRN Reason: Nausea And Vomiting Pentoxifylline (Trental) 400 mg PO Q12HR [facility] Last Admin: 06/25/18 10:36 Dose: 400 mg Documented by: Rifaximin (Xifaxan) 550 mg PO BID [facility] Last Admin: 06/25/18 10:36 Dose: 550 mg Documented by: Sodium Bicarbonate (Sodium Bicarbonate) 1,300 mg PO TID [facility] Last Admin: 06/25/18 08:11 Dose: 1,300 mg Documented by: Sodium Bicarbonate (Sodium Bicarbonate 50meq Syringe) 50 meq IV ONCE ONE Stop: 06/25/18 08:30 Review of Systems All systems: negative (none) Exam Vital Signs Resp 25 H 06/22/18 00:36 - General physical appearance Positive: well developed, well nourished, no distress - Eyes Positive: PERRL, normal occular movement - ENT Positive: normal pinna, normal nares, normal mucosa, no hearing loss, no congestion - Neck Positive: no masses, no bruits, trachea midline, no venous distension - Respiratory Positive: normal expansion, normal respiratory effort, clear to auscultation - Cardiovascular Rhythm: regular Heart Sounds: Present: S1 & S2. Absent: rub, click - Extremities Extremities: no ischemia, pulses symmetrical, No edema - Breasts Breasts: deferred - Abdomen Abdomen: Present: soft, bowel sounds normal. Absent: tender, distended Hernia: none - Genitourinary Male Genitourinary: deferred - Integumentary other (There is a 4 X 1.5 X 0.5 cm fairly clean ulceration over the right lateral leg. The right DP pulse is 2+.) - Neurologic Neurologic: alert and oriented to time, place and person, motor strength and sensation are grossly intact - Musculoskeletal normal gait, normal posture - Psychiatric Psychiatric: appropriate mood/affect, intact judgment & insight Results - Labs 06/24/18 05:20 06/25/18 07:15 Abnormal lab results 06/25/18 Range/Units 07:15 Potassium 3.3 L (3.6-5.0) mmol/L Chloride 111.3 H (98-107) mmol/L Carbon Dioxide 17 L (22-30) mmol/L Creatinine 0.2 L D (0.8-1.5) mg/dL Glucose 110 H (75-100) mg/dL Calcium 7.2 L (8.4-10.2) mg/dL Total Bilirubin 27.50 H (0.1-1.2) mg/dL AST 210 H (5-40) units/L Alkaline Phosphatase 278 H (35-129) units/L Total Protein 4.9 L (6.3-8.2) g/dL Albumin 2.0 L (3.9-5) g/dL Diabetes panel 06/25/18 06/25/18 Range/Units 05:22 07:15 Sodium TNR 142 Potassium TNR 3.3 L Chloride TNR 111.3 H Carbon Dioxide TNR 17 L BUN TNR 19 Creatinine TNR 0.2 L D Glucose TNR 110 H Calcium TNR 7.2 L AST TNR 210 H ALT TNR 48 Alkaline Phosphatase TNR 278 H Total Protein TNR 4.9 L Albumin TNR 2.0 L Calcium panel 06/25/18 06/25/18 Range/Units 05:22 07:15 Calcium TNR 7.2 L Albumin TNR 2.0 L Pituitary panel 06/25/18 06/25/18 Range/Units 05:22 07:15 Sodium TNR 142 Potassium TNR 3.3 L Chloride TNR 111.3 H Carbon Dioxide TNR 17 L BUN TNR 19 Creatinine TNR 0.2 L D Glucose TNR 110 H Calcium TNR 7.2 L Adrenal panel 06/25/18 06/25/18 Range/Units 05:22 07:15 Sodium TNR 142 Potassium TNR 3.3 L Chloride TNR 111.3 H Carbon Dioxide TNR 17 L BUN TNR 19 Creatinine TNR 0.2 L D Glucose TNR 110 H Calcium TNR 7.2 L Total Bilirubin TNR 27.50 H AST TNR 210 H ALT TNR 48 Alkaline Phosphatase TNR 278 H Total Protein TNR 4.9 L Albumin TNR 2.0 L Assessment and Plan - Patient Problems (1) Wound of right lower extremity Current Visit: Yes Status: Chronic Qualifiers: Encounter type: subsequent encounter Qualified Code(s): S81.801D - Unspecified open wound, right lower leg, subsequent encounter Plan to address problem: 1) Elevate RLE as much as possible. 2) Venous doppler of RLE 3) F/u in Wound Clinic
[2018-06-25] MEDS ORDERED: MAGNESIUM SULFATE 1 GM in NACL 0.9% 50 ML IV ONE (13:00)
[2018-06-25 13:14] LABS: INR 1.92 (0.87-1.13)
[2018-06-25] MEDS: CEPHULAC PO SCH ×2 (13:47→21:26)
[2018-06-25] MEDS: KCL 10MEQ/100ML 10 MEQ/100 ML BAG IV SCH ×4 (14:24→18:14)
--- NOTE | 2018-06-25 16:35 | Progress Note ---
Assessment and Plan Assessment and plan: Patient's a 59-year-old male with a history of EtOH abuse admitted with altered mental status. According to ED documentation the of the patient called paramedics because the patient had possible syncopal episode while in the shower information was treated with multiple variation as documented by the EMS. Nevertheless on presentation to the hospital patient was noted to have multiple laboratory abnormalities with "hyponatremic and has new onset hyperbilirubinemia. Patient had a low-grade temperature and some mild abdominal discomfort which is worrisome for cholangitis" as documented by the ED. There is also concern of possible syncopal episode while in the shower mentioned above. CT of the head is within normal limits. Chest x-ray shows that the patient did not take adequate breath however there is no obvious infiltrates. X-ray of the L-spine per my interpretation shows that the patient does have significant degenerative disease however there is no acute fracture XR Spine lumbosacral: Stable prominent Schmorl's deformities and multilevel compression deformities at the T12-L3 levels. US abdomen: IMPRESSION: Coarsely echogenic hepatic parenchyma consistent with fatty infiltration. Distended gallbladder with questionable trace pericholecystic fluid. No gallstones visualized. Dilatation of the common bile duct measuring approximately 1.1 cm. Distal obstructive process must be suspected. Further evaluation with CT and or correlation with MRCP should be co nsidered. If acute cholecystitis is clinically suspected, correlation with HIDA scan may be helpful.. V/Q scan: No PE MRCP: Pending Acute alcoholic hepatitis Hepatic Encephalopathy Thrombocytopenia and worsening. 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 Prognosis remains poor this has also been expressed to the . Hospice also discussed with the patient's spouse she will discuss this with family based on patient's progress Surgical evaluation for chronic leg ulcer noted patient with no DVT. Supportive care Aspiration/Seizure precaution Continue empiric antibiotic coverage Follow-up with cultures GI improved noted Orthopedic eval Obtain echocardiogram although doubt cardiac etiology Replace Potassium level Monitor sodium leveL Counselling on etoh cessation when awake Wound care consult May require further fluid resuscitation MRCP-tended [facility] Protocol DVT/GI prophy Prognosis poor The high probability of a clinically significant, sudden or life threatening deterioration of the [gi,NEURO] system(s) required my full and direct attention, intervention and personal management. The aggregate critical care time was [35] minutes. This time is in addition to time spent performing reported procedures but includes the following: [X] Data Review and interpretation [X] Patient assessment and monitoring of vital signs [X] Documentation [X] Medication orders and management . History Interval history: Patient Seen and examined this morning remains with altered mental status although more awake, but still tremolous, although no adverse events reported by patient appears clinically ill spouse was present at the bedside today. The patient has been drinking heavily for a long time and it has been a social strife in the family. Hospitalist Physical - Physical exam Narrative exam: VITAL SIGNS: Reviewed. GENERAL: The patient appeared still with tremulous. Medically ill appearing Vital signs as documented. HEAD: No signs of head trauma. EYES: Pupils are equal. EARS: Hearing grossly intact. MOUTH: Oropharynx is normal. NECK: No adenopathy, no JVD. CHEST: Chest with clear breath sounds bilaterally. No wheezes, rales, or rhon chi. CARDIAC: Regular rate and rhythm. S1 and S2, without murmurs, gallops, or rubs. VASCULAR: Trace bilateral pitting Edema. Peripheral pulses normal and equal in all extremities. ABDOMEN: Soft, mildly distended and generalized tenderness. No rebound or guarding, and no masses palpated. Bowel Sounds normal. MUSCULOSKELETAL: Extremities without clubbing, cyanosis or edema. NEUROLOGIC EXAM: Altered sensorium PSYCHIATRIC: Unable to examine patient's altered. SKIN: Right leg chronic wound, echymosis at the back. - Constitutional Vitals: Temp Pulse Resp BP Pulse Ox 97.9 F 98 H 28 H 116/85 99 06/25/18 11:50 06/25/18 11:50 06/25/18 11:50 06/25/18 11:50 06/25/18 11:50 Results - Labs CBC & Chem 7: 06/24/18 05:20 06/25/18 07:15 Labs: Laboratory Last Values WBC 9.4 K/mm3 (4.5-11.0) 06/24/18 05:20 RBC 2.85 M/mm3 (3.65-5.03) L 06/24/18 05:20 Hgb 9.7 gm/dl (11.8-15.2) L 06/24/18 05:20 Hct 29.8 % (35.5-45.6) L 06/24/18 05:20 MCV 105 fl (84-94) H 06/24/18 05:20 MCH 34 pg (28-32) H 06/24/18 05:20 MCHC 32 % (32-34) 06/24/18 05:20 RDW 19.8 % (13.2-15.2) H 06/24/18 05:20 Plt Count 46 K/mm3 (140-440) L 06/24/18 05:20 Add Manual Diff Complete 06/22/18 01:02 Total Counted 100 06/22/18 01:02 Seg Neuts % (Manual) 84.0 % (40.0-70.0) H 06/22/18 01:02 Band Neutrophils % 0 % 06/22/18 01:02 Lymphocytes % (Manual) 9.0 % (13.4-35.0) L 06/22/18 01:02 Reactive Lymphs % (Man) 0 % 06/22/18 01:02 Monocytes % (Manual) 3.0 % (0.0-7.3) 06/22/18 01:02 Eosinophils % (Manual) 0 % (0.0-4.3) 06/22/18 01:02 Basophils % (Manual) 0 % (0.0-1.8) 06/22/18 01:02 Metamyelocytes % 0 % 06/22/18 01:02 Myelocytes % 4.0 % 06/22/18 01:02 Promyelocytes % 0 % 06/22/18 01:02 Blast Cells % 0 % 06/22/18 01:02 Nucleated RBC % 16.0 % (0.0-0.9) H 06/22/18 01:02 Seg Neutrophils # Man 6.5 K/mm3 (1.8-7.7) 06/22/18 01:02 Band Neutrophils # 0.0 K/mm3 06/22/18 01:02 Lymphocytes # (Manual) 0.7 K/mm3 (1.2-5.4) L 06/22/18 01:02 Abs React Lymphs (Man) 0.0 K/mm3 06/22/18 01:02 Monocytes # (Manual) 0.2 K/mm3 (0.0-0.8) 06/22/18 01:02 Eosinophils # (Manual) 0.0 K/mm3 (0.0-0.4) 06/22/18 01:02 Basophils # (Manual) 0.0 K/mm3 (0.0-0.1) 06/22/18 01:02 Metamyelocytes # 0.0 K/mm3 06/22/18 01:02 Myelocytes # 0.3 K/mm3 06/22/18 01:02 Promyelocytes # 0.0 K/mm3 06/22/18 01:02 Blast Cells # 0.0 K/mm3 06/22/18 01:02 WBC Morphology Not Reportable 06/22/18 01:02 Hypersegmented Neuts Not Reportable 06/22/18 01:02 Hyposegmented Neuts Not Reportable 06/22/18 01:02 Hypogranular Neuts Not Reportable 06/22/18 01:02 Smudge Cells Not Reportable 06/22/18 01:02 Toxic Granulation Not Reportable 06/22/18 01:02 Toxic Vacuolation Not Reportable 06/22/18 01:02 Dohle Bodies Not Reportable 06/22/18 01:02 Pelger-Huet Anomaly Not Reportable 06/22/18 01:02 Elaine Rods Not Reportable 06/22/18 01:02 Platelet Estimate Consistent w auto 06/22/18 01:02 Clumped Platelets Not Reportable 06/22/18 01:02 Plt Clumps, EDTA Not Reportable 06/22/18 01:02 Large Platelets Not Reportable 06/22/18 01:02 Giant Platelets Not Reportable 06/22/18 01:02 Platelet Satelliting Not Reportable 06/22/18 01:02 Plt Morphology Comment Not Reportable 06/22/18 01:02 RBC Morphology Not Reportable 06/22/18 01:02 Dimorphic RBCs Not Reportable 06/22/18 01:02 Polychromasia Not Reportable 06/22/18 01:02 Hypochromasia Few 06/22/18 01:02 Poikilocytosis 1+ 06/22/18 01:02 Anisocytosis 1+ 06/22/18 01:02 Microcytosis Not Reportable 06/22/18 01:02 Macrocytosis Not Reportable 06/22/18 01:02 Spherocytes Not Reportable 06/22/18 01:02 Pappenheimer Bodies Not Reportable 06/22/18 01:02 Sickle Cells Not Reportable 06/22/18 01:02 Target Cells 1+ 06/22/18 01:02 Tear Drop Cells Not Reportable 06/22/18 01:02 Ovalocytes Not Reportable 06/22/18 01:02 Helmet Cells Not Reportable 06/22/18 01:02 Lara-Animas Bodies Not Reportable 06/22/18 01:02 [place] Rings Not Reportable 06/22/18 01:02 [place] Cells Not Reportable 06/22/18 01:02 Bite Cells Not Reportable 06/22/18 01:02 Crenated Cell Not Reportable 06/22/18 01:02 Elliptocytes Not Reportable 06/22/18 01:02 Acanthocytes (Spur) Not Reportable 06/22/18 01:02 Rouleaux Not Reportable 06/22/18 01:02 Hemoglobin C Crystals Not Reportable 06/22/18 01:02 Schistocytes Not Reportable 06/22/18 01:02 Malaria parasites Not Reportable 06/22/18 01:02 Tristen Bodies Not Reportable 06/22/18 01:02 Hem Pathologist Commnt No 06/22/18 01:02 PT 23.3 Sec. (12.2-14.9) H 06/25/18 12:12 INR 1.92 (0.87-1.13) H 06/25/18 12:12 APTT 71.9 Sec. (24.2-36.6) H* 06/22/18 01:02 D-Dimer 1064.09 ng/mlDDU (0-234) H 06/22/18 01:02 Sodium 142 mmol/L (137-145) 06/25/18 07:15 Potassium 3.3 mmol/L (3.6-5.0) L 06/25/18 07:15 Chloride 111.3 mmol/L (98-107) H 06/25/18 07:15 Carbon Dioxide 17 mmol/L (22-30) L 06/25/18 07:15 Anion Gap 17 mmol/L 06/25/18 07:15 BUN 19 mg/dL (9-20) 06/25/18 07:15 Creatinine 0.2 mg/dL (0.8-1.5) L D 06/25/18 07:15 Estimated GFR > 60 ml/min 06/25/18 07:15 BUN/Creatinine Ratio 95 % 06/25/18 07:15 Glucose 110 mg/dL (75-100) H 06/25/18 07:15 Lactic Acid 1.40 mmol/L (0.7-2.0) 06/23/18 05:27 Calcium 7.2 mg/dL (8.4-10.2) L 06/25/18 07:15 Magnesium 1.30 mg/dL (1.7-2.3) L 06/25/18 12:12 Total Bilirubin 27.50 mg/dL (0.1-1.2) H 06/25/18 07:15 Direct Bilirubin 4.5 mg/dL (0-0.2) H 06/22/18 07:22 Indirect Bilirubin 18.0 mg/dL 06/22/18 07:22 AST 210 units/L (5-40) H 06/25/18 07:15 ALT 48 units/L (7-56) 06/25/18 07:15 Alkaline Phosphatase 278 units/L (35-129) H 06/25/18 07:15 Ammonia 14.0 umol/L (25-60) L 06/25/18 10:10 Troponin T < 0.010 ng/mL (0.00-0.029) 06/22/18 01:02 Total Protein 4.9 g/dL (6.3-8.2) L 06/25/18 07:15 Albumin 2.0 g/dL (3.9-5) L 06/25/18 07:15 Albumin/Globulin Ratio 0.7 % 06/25/18 07:15 Lipase 99 units/L (13-60) H 06/22/18 01:02 Plasma/Serum Alcohol 0.11 % (0-0.07) H 06/22/18 02:57 Active Medications - Current Medications Current Medications: Generic Name Dose Route Start Last Admin Trade Name Freq PRN Reason Stop Dose Admin Azithromycin 500 mg 06/25/18 10:00 06/25/18 10:36 Zithromax PO 500 mg QDAY BRISEYDA Administration Metronidazole 500 mg in 100 mls @ 100 mls/hr 06/22/18 02:00 06/25/18 10:24 Flagyl 500 Mg/100 Ml IV 100 mls/hr Q8H BRISEYDA Administration Protocol Cefepime HCl 2 gm in 100 mls @ 200 mls/hr 06/22/18 10:00 06/25/18 10:27 Maxipime/Ns 2 Gm/100 Ml IV 200 mls/hr Q12HR BRISEYDA Administration Potassium Chloride/Dextrose/Sod Cl 30 meq in 1,000 mls @ 125 mls/hr 06/24/18 10:00 06/25/18 10:23 D5w/0.45% Nacl/Kcl 30 Meq IV 125 mls/hr DIRECT BRISEYDA Administration Lactulose 20 gm 06/25/18 14:00 06/25/18 13:47 Cephulac PO 20 gm Q8HR BRISEYDA Administration Lorazepam 2 mg 06/22/18 11:03 06/25/18 14:28 Ativan IV 2 mg Q1HR PRN Administration CIWA-Ar 8-15 Lorazepam 4 mg 06/22/18 11:03 06/25/18 00:24 Ativan IV 2 mg Q15MIN PRN Administration CIWA-Ar >25 Morphine Sulfate 1 mg 06/22/18 18:02 Morphine IV Q6H PRN Pain, Moderate (4-6) Multivitamins 1 each 06/23/18 10:00 06/25/18 10:36 Theragran Tab PO 1 each QDAY BRISEYDA Administration Ondansetron HCl 4 mg 06/22/18 03:10 Zofran IV Q8H PRN Nausea And Vomiting Pentoxifylline 400 mg 06/24/18 22:00 06/25/18 10:36 Trental PO 400 mg Q12HR BRISEYDA Administration Rifaximin 550 mg 06/22/18 22:00 06/25/18 10:36 Xifaxan PO 550 mg BID BRISEYDA Administration Sodium Bicarbonate 1,300 mg 06/24/18 14:00 06/25/18 13:47 Sodium Bicarbonate PO 1,300 mg TID BRISEYDA Administration Nutrition/Malnutrition Assess - Dietary Evaluation Nutrition/Malnutrition Findings: Nutrition Notes Start: 03/26/19 14:11 Freq: Status: Active Protocol: Document 06/25/18 11:23 TW (Rec: 06/25/18 11:31 TW [id number]) Co-Sign 06/25/18 11:23 LP Nutrition Notes Initial or Follow up Reassessment Current Diagnosis Acute Kidney Injury, Hypertension Other Pertinent Diagnosis seizures, wounds, AMS, Etoh related liver disease Current Diet CHO consistent Labs/Tests K 3.3 BG 110 Pertinent Medications reviewed Height 5 ft 6 in Weight 108.86 kg [place] Body Weight (kg) 64.54 BMI 38.7 Subjective/Other Information F/U for intakes/ diet advancement. Noted diet advanced to CHO consistent but no sign of DM. Tech in room feeding pt. Tech reports pt eats 100% of meals and tolerates well. Percent of energy/protein needs met: 100%/100% Burn Absent Trauma Absent GI Symptoms None Food Allergy No Current % PO Good (75-100%) Minimum of two criteria No #1 Nutrition Diagnosis Inadequate oral intake As Evidenced by Signs and Symptoms pt eating 100% of meals Diagnosis Progress(for reassessment Resolved documentation) Is patient on ventilator? No Is Patient Ambulatory and/or Out of Bed No REE-([place]-confined to bed) 2208.168 Kcal/Kg value to use for calculation 16 Approximate Energy Requirements Using 1742 kcal/Kg Calculation Used for Recommendations Kcal/kg Additional Notes AdjBW: 86.72kg pro: 69-87g/day (0.8-1g/kg) fluid: 1mL/kcal Nutrition Intervention Change Diet Order: Change to cardiac diet Goal #1 Continue to meet at least 75% of kcal and pro needs Anticipated Discharge Needs: Unable to determine at this time Revisit per MD consult or patient Sign Off request: - Attestation Statement I have reviewed and agreed w/ Malnutrition eval & tx plan: Yes
--- NOTE | 2018-06-25 16:49 | Vascular Lab Report ---
PROCEDURE: VL VENOUS DUPLEX LE RT TECHNIQUE: Longitudinal and transverse grayscale, color, and Doppler sonographic images were perform ed of the right lower extremity from the groin to the infrapopliteal region. HISTORY: Right leg wound COMPARISONS: None FINDINGS: The venous system is anechoic and fully compressible all levels. Normal respiratory variability and augmentation. No popliteal cyst. Technically limited exam due to patient's inability to properly Valsalva and tissue harmonics. No evidence of reflux into the right saphenofemoral junction or the greater saphenous vein although t he patient was unable to properly Valsalva. No reflux noted with proximal compression or distal augme ntation. Reflux is noted in the right small saphenous vein. Right SSV popliteal fossa measures 0.35 cm, 958 m/s Right SPJ 0.53 cm, 326 7 m/s Posterior calf 0.41 cm Mid calf 0.41 cm Unable to visualize perforators due to tissue harmonics. Deep venous reflux is noted in the right popliteal vein measuring 2067 ms IMPRESSION: No DVT right lower extremity. Exam limited by patient body habitus. No significant venous reflux identified. . This document is electronically signed by Katharine Soares MD., June 25 2018 04:47:38 PM ET
[2018-06-25] MEDS ORDERED: MAGNESIUM SULFATE 2GM/50ML 2 GM/50 ML BAG IV ONE (18:00)
[2018-06-26] MEDS: FLAGYL 500 MG/100 ML 500 MG/100 ML BAG IV SCH ×3 (02:05→17:54)
[2018-06-26] MEDS: ATIVAN IV PRN ×3 (02:08→06:40)
[2018-06-26] MEDS: D5W/0.45% NACL/KCL 30 MEQ 30 MEQ/1,000 ML BAG IV SCH ×2 (04:12→22:28)
[2018-06-26] MEDS: CEPHULAC PO SCH ×4 (06:28→22:29)
[2018-06-26 08:25] LABS: Hematocrit 33.4 % (35.5-45.6); Hemoglobin 10.8 gm/dl (11.8-15.2); Mean Corpuscular HGB Conc 32 % (32-34); Mean Corpuscular Volume 105 fl (84-94)
--- NOTE | 2018-06-26 08:30 | Progress Note ---
Assessment and Plan Assessment and plan: Patient is a 59 yo man with a history of EtOH abuse admitted with altered mental status. According to ED documentation, the of the patient called paramedics because the patient had possible syncopal episode while in the shower. EMS records are not currently in his physical chart for my review. Pily jones was admitted for suspected cholangitis, liver failure, sepsis from right leg infection and syncope. * CT of the head is within normal limits. * Chest x-ray shows that the patient did not take adequate breath however there is no obvious infiltrates. X-ray of the L-spine per my interpretation shows that the patient does have significant degenerative disease however there is no acute fracture * XR Spine lumbosacral: Stable prominent Schmorl's deformities and multilevel compression deformities at the T12-L3 levels. * US abdomen: IMPRESSION: Coarsely echogenic hepatic parenchyma consistent with fatty infiltration. Distended gallbladder with questionable trace pericholecystic fluid. No gallstones visualized. Dilatation of the common bile duct measuring approximately 1.1 cm. Distal obstructive process must be suspected. Further evaluation with CT and or correlation with MRCP should be considered. If acute cholecystitis is clinically suspected, correlation with HIDA scan may be helpful.. * V/Q scan: No PE * MRCP: Pending -Acute hypoxic respiratory failure with CODE MET called because pulse ox dropped to 55% on RA: treat with O2, ordered Troponin, abg, pCXR, ammonia level and bmp and cbc pending. 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 -Anemia SECODNARY TO ETOH AND LIVER failure: GI is following -Possible Choledocholethasis with LFT abnormalities -Syncope possible vasovagal related to above: add telemetry -Dialated CBD with distended gall bladder: too ill for HIDA scan at present, GI is following -Severe sepsis with >2 SOFA criteria Met due to lateral elongated RLL leg ulcerated infection growing multiple species, at least stage 4, poa: GS is following, on ABX, consult ID -Acute Kidney Injury with vasomotor nephropathy -Hyponatremia: monitor closely -Hypomagnesemia: monitor closely, add telemetry -ETOH INTOXICATION with BAL of 0.11 on admission, watch for withdrawal: CIWA ordered -Metabolic Acidosis -Lactic acidosis -Hypokalemia; monitor closely -Multilevel Compression deformities- T12-L3- No incontinence prognosis poor I called and spoke with , she has not made decision upon Hospice or DNR status, she says she is on her way. Spoke with Dr. Boone regarding admission to ICU. CCT 35 minutes History Interval history: Patient was seen and examined. Follow-up on current diagnosis Liver failure. Overnight uneventful. Patient denies any pains barely speaking. Imaging, nursing note, chart, labs and old chart reviewed. Code Met called due to hypoxia, pulse ox dropped to 55% on Room air, now 100% on Vm 50% Hospitalist Physical - Physical exam Narrative exam: GEN: critical ill , moderate accessory muscle, somnolent, orientated to name, hospital HEENT: NCAT, EOMI, PERRL, OP Clear NECK: supple, no adenopathy, no thyromegaly, no JVD CVS/HEART: RRR, normal S1S2, pulses present bilaterally CHEST/LUNGS: diminished, tachypneic, Symmetrical chest expansion, good air entry bilaterally GI/Abdomen: soft, NTND, good bowel sounds, no guarding or rebound /Bladder: no suprapubic tenderness, no CVA or paraspinal tenderness EXT/Skin: no c/c/e, no obvious rash MSK: FROM x 4 Neuro: CN 2-12 grossly intact, no new focal deficits Psych: calm - Constitutional Vitals: Temp Pulse Resp BP Pulse Ox 97.6 F 92 H 24 149/89 96 06/26/18 04:52 06/26/18 04:52 06/26/18 04:52 06/26/18 04:52 06/26/18 04:52 Results - Labs CBC & Chem 7: 06/24/18 05:20 06/25/18 07:15 Labs: Laboratory Last Values WBC 9.4 K/mm3 (4.5-11.0) 06/24/18 05:20 RBC 2.85 M/mm3 (3.65-5.03) L 06/24/18 05:20 Hgb 9.7 gm/dl (11.8-15.2) L 06/24/18 05:20 Hct 29.8 % (35.5-45.6) L 06/24/18 05:20 MCV 105 fl (84-94) H 06/24/18 05:20 MCH 34 pg (28-32) H 06/24/18 05:20 MCHC 32 % (32-34) 06/24/18 05:20 RDW 19.8 % (13.2-15.2) H 06/24/18 05:20 Plt Count 46 K/mm3 (140-440) L 06/24/18 05:20 Add Manual Diff Complete 06/22/18 01:02 Total Counted 100 06/22/18 01:02 Seg Neuts % (Manual) 84.0 % (40.0-70.0) H 06/22/18 01:02 Band Neutrophils % 0 % 06/22/18 01:02 Lymphocytes % (Manual) 9.0 % (13.4-35.0) L 06/22/18 01:02 Reactive Lymphs % (Man) 0 % 06/22/18 01:02 Monocytes % (Manual) 3.0 % (0.0-7.3) 06/22/18 01:02 Eosinophils % (Manual) 0 % (0.0-4.3) 06/22/18 01:02 Basophils % (Manual) 0 % (0.0-1.8) 06/22/18 01:02 Metamyelocytes % 0 % 06/22/18 01:02 Myelocytes % 4.0 % 06/22/18 01:02 Promyelocytes % 0 % 06/22/18 01:02 Blast Cells % 0 % 06/22/18 01:02 Nucleated RBC % 16.0 % (0.0-0.9) H 06/22/18 01:02 Seg Neutrophils # Man 6.5 K/mm3 (1.8-7.7) 06/22/18 01:02 Band Neutrophils # 0.0 K/mm3 06/22/18 01:02 Lymphocytes # (Manual) 0.7 K/mm3 (1.2-5.4) L 06/22/18 01:02 Abs React Lymphs (Man) 0.0 K/mm3 06/22/18 01:02 Monocytes # (Manual) 0.2 K/mm3 (0.0-0.8) 06/22/18 01:02 Eosinophils # (Manual) 0.0 K/mm3 (0.0-0.4) 06/22/18 01:02 Basophils # (Manual) 0.0 K/mm3 (0.0-0.1) 06/22/18 01:02 Metamyelocytes # 0.0 K/mm3 06/22/18 01:02 Myelocytes # 0.3 K/mm3 06/22/18 01:02 Promyelocytes # 0.0 K/mm3 06/22/18 01:02 Blast Cells # 0.0 K/mm3 06/22/18 01:02 WBC Morphology Not Reportable 06/22/18 01:02 Hypersegmented Neuts Not Reportable 06/22/18 01:02 Hyposegmented Neuts Not Reportable 06/22/18 01:02 Hypogranular Neuts Not Reportable 06/22/18 01:02 Smudge Cells Not Reportable 06/22/18 01:02 Toxic Granulation Not Reportable 06/22/18 01:02 Toxic Vacuolation Not Reportable 06/22/18 01:02 Dohle Bodies Not Reportable 06/22/18 01:02 Pelger-Huet Anomaly Not Reportable 06/22/18 01:02 Elaine Rods Not Reportable 06/22/18 01:02 Platelet Estimate Consistent w auto 06/22/18 01:02 Clumped Platelets Not Reportable 06/22/18 01:02 Plt Clumps, EDTA Not Reportable 06/22/18 01:02 Large Platelets Not Reportable 06/22/18 01:02 Giant Platelets Not Reportable 06/22/18 01:02 Platelet Satelliting Not Reportable 06/22/18 01:02 Plt Morphology Comment Not Reportable 06/22/18 01:02 RBC Morphology Not Reportable 06/22/18 01:02 Dimorphic RBCs Not Reportable 06/22/18 01:02 Polychromasia Not Reportable 06/22/18 01:02 Hypochromasia Few 06/22/18 01:02 Poikilocytosis 1+ 06/22/18 01:02 Anisocytosis 1+ 06/22/18 01:02 Microcytosis Not Reportable 06/22/18 01:02 Macrocytosis Not Reportable 06/22/18 01:02 Spherocytes Not Reportable 06/22/18 01:02 Pappenheimer Bodies Not Reportable 06/22/18 01:02 Sickle Cells Not Reportable 06/22/18 01:02 Target Cells 1+ 06/22/18 01:02 Tear Drop Cells Not Reportable 06/22/18 01:02 Ovalocytes Not Reportable 06/22/18 01:02 Helmet Cells Not Reportable 06/22/18 01:02 Lara-Sealy Bodies Not Reportable 06/22/18 01:02 [place] Rings Not Reportable 06/22/18 01:02 Michel Cells Not Reportable 06/22/18 01:02 Bite Cells Not Reportable 06/22/18 01:02 Crenated Cell Not Reportable 06/22/18 01:02 Elliptocytes Not Reportable 06/22/18 01:02 Acanthocytes (Spur) Not Reportable 06/22/18 01:02 Rouleaux Not Reportable 06/22/18 01:02 Hemoglobin C Crystals Not Reportable 06/22/18 01:02 Schistocytes Not Reportable 06/22/18 01:02 Malaria parasites Not Reportable 06/22/18 01:02 Tristen Bodies Not Reportable 06/22/18 01:02 Hem Pathologist Commnt No 06/22/18 01:02 PT 23.3 Sec. (12.2-14.9) H 06/25/18 12:12 INR 1.92 (0.87-1.13) H 06/25/18 12:12 APTT 71.9 Sec. (24.2-36.6) H* 06/22/18 01:02 D-Dimer 1064.09 ng/mlDDU (0-234) H 06/22/18 01:02 Sodium 142 mmol/L (137-145) 06/25/18 07:15 Potassium 3.3 mmol/L (3.6-5.0) L 06/25/18 07:15 Chloride 111.3 mmol/L (98-107) H 06/25/18 07:15 Carbon Dioxide 17 mmol/L (22-30) L 06/25/18 07:15 Anion Gap 17 mmol/L 06/25/18 07:15 BUN 19 mg/dL (9-20) 06/25/18 07:15 Creatinine 0.2 mg/dL (0.8-1.5) L D 06/25/18 07:15 Estimated GFR > 60 ml/min 06/25/18 07:15 BUN/Creatinine Ratio 95 % 06/25/18 07:15 Glucose 110 mg/dL (75-100) H 06/25/18 07:15 POC Glucose 102 (70-105) 06/26/18 08:06 Lactic Acid 1.40 mmol/L (0.7-2.0) 06/23/18 05:27 Calcium 7.2 mg/dL (8.4-10.2) L 06/25/18 07:15 Magnesium 1.30 mg/dL (1.7-2.3) L 06/25/18 12:12 Total Bilirubin 27.50 mg/dL (0.1-1.2) H 06/25/18 07:15 Direct Bilirubin 4.5 mg/dL (0-0.2) H 06/22/18 07:22 Indirect Bilirubin 18.0 mg/dL 06/22/18 07:22 AST 210 units/L (5-40) H 06/25/18 07:15 ALT 48 units/L (7-56) 06/25/18 07:15 Alkaline Phosphatase 278 units/L (35-129) H 06/25/18 07:15 Ammonia 14.0 umol/L (25-60) L 06/25/18 10:10 Troponin T < 0.010 ng/mL (0.00-0.029) 06/22/18 01:02 Total Protein 4.9 g/dL (6.3-8.2) L 06/25/18 07:15 Albumin 2.0 g/dL (3.9-5) L 06/25/18 07:15 Albumin/Globulin Ratio 0.7 % 06/25/18 07:15 Lipase 99 units/L (13-60) H 06/22/18 01:02 Plasma/Serum Alcohol 0.11 % (0-0.07) H 06/22/18 02:57 Active Medications - Current Medications Current Medications: Generic Name Dose Route Start Last Admin Trade Name Freq PRN Reason Stop Dose Admin Azithromycin 500 mg 06/25/18 10:00 06/25/18 10:36 Zithromax PO 06/27/18 10:01 500 mg QDAY BRISEYDA Administration Metronidazole 500 mg in 100 mls @ 100 mls/hr 06/22/18 02:00 06/26/18 02:05 Flagyl 500 Mg/100 Ml IV 100 mls/hr Q8H BRISEYDA Administration Protocol Cefepime HCl 2 gm in 100 mls @ 200 mls/hr 06/22/18 10:00 06/25/18 21:26 Maxipime/Ns 2 Gm/100 Ml IV 200 mls/hr Q12HR BRISEYDA Administration Potassium Chloride/Dextrose/Sod Cl 30 meq in 1,000 mls @ 125 mls/hr 06/24/18 10:00 06/26/18 04:12 D5w/0.45% Nacl/Kcl 30 Meq IV 125 mls/hr DIRECT BRISEYDA Administration Lactulose 20 gm 06/25/18 14:00 06/26/18 06:28 Cephulac PO 20 gm Q8HR BRISEYDA Administration Lorazepam 2 mg 06/22/18 11:03 06/26/18 06:40 Ativan IV 2 mg Q1HR PRN Administration CIWA-Ar 8-15 Lorazepam 4 mg 06/22/18 11:03 06/25/18 00:24 Ativan IV 2 mg Q15MIN PRN Administration CIWA-Ar >25 Morphine Sulfate 1 mg 06/22/18 18:02 Morphine IV Q6H PRN Pain, Moderate (4-6) Multivitamins 1 each 06/23/18 10:00 06/25/18 10:36 Theragran Tab PO 1 each QDAY BRISEYDA Administration Ondansetron HCl 4 mg 06/22/18 03:10 Zofran IV Q8H PRN Nausea And Vomiting Pentoxifylline 400 mg 06/24/18 22:00 06/25/18 21:27 Trental PO 400 mg Q12HR BRISEYDA Administration Rifaximin 550 mg 06/22/18 22:00 06/25/18 21:29 Xifaxan PO 550 mg BID BRISEYDA Administration Sodium Bicarbonate 1,300 mg 06/24/18 14:00 06/25/18 21:26 Sodium Bicarbonate PO 1,300 mg TID BRISEYDA Administration Nutrition/Malnutrition Assess - Dietary Evaluation Nutrition/Malnutrition Findings: Nutrition Notes Start: 06/23/18 14:11 Freq: Status: Active Protocol: Document 06/25/18 11:23 TW (Rec: 06/25/18 11:31 TW [id number]) Co-Sign 06/25/18 11:23 LP Nutrition Notes Initial or Follow up Reassessment Current Diagnosis Acute Kidney Injury, Hypertension Other Pertinent Diagnosis seizures, wounds, AMS, Etoh related liver disease Current Diet CHO consistent Labs/Tests K 3.3 BG 110 Pertinent Medications reviewed Height 5 ft 6 in Weight 108.86 kg [place] Body Weight (kg) 64.54 BMI 38.7 Subjective/Other Information F/U for intakes/ diet advancement. Noted diet advanced to CHO consistent but no sign of DM. Tech in room feeding pt. Tech reports pt eats 100% of meals and tolerates well. Percent of energy/protein needs met: 100%/100% Burn Absent Trauma Absent GI Symptoms None Food Allergy No Current % PO Good (75-100%) Minimum of two criteria No #1 Nutrition Diagnosis Inadequate oral intake As Evidenced by Signs and Symptoms pt eating 100% of meals Diagnosis Progress(for reassessment Resolved documentation) Is patient on ventilator? No Is Patient Ambulatory and/or Out of Bed No REE-([facility]-confined to bed) 2208.168 Kcal/Kg value to use for calculation 16 Approximate Energy Requirements Using 1742 kcal/Kg Calculation Used for Recommendations Kcal/kg Additional Notes AdjBW: 86.72kg pro: 69-87g/day (0.8-1g/kg) fluid: 1mL/kcal Nutrition Intervention Change Diet Order: Change to cardiac diet Goal #1 Continue to meet at least 75% of kcal and pro needs Anticipated Discharge Needs: Unable to determine at this time Revisit per MD consult or patient Sign Off request:
[2018-06-26 08:31] LABS: Red Cell Distribution Width 21.3 % (13.2-15.2)
[2018-06-26 08:40] LABS: Alanine Aminotransferase 47 units/L (7-56); Albumin 1.8 g/dL (3.9-5); BUN/Creatinine Ratio 80; Blood Urea Nitrogen 16 mg/dL (9-20); Calcium 7.2 mg/dL (8.4-10.2); Hemolysis Index 0
--- NOTE | 2018-06-26 09:00 | XRay Report ---
AP CHEST: HISTORY: Hypoxia There is poor inspiration with mild atelectatic changes in the lower lung zones. The upper lung zones are well-aerated. No convincing pneumonia, pleural effusion or pneumothorax. Heart size appears borderline. The bony structures are grossly intact. IMPRESSION: Grossly negative expiratory AP chest. Borderline heart size.
[2018-06-26] MEDS: MAXIPIME/NS 2 GM/100 ML 2 GM/100 ML BAG IV SCH ×2 (09:53→22:26)
[2018-06-26 09:57] LABS: Platelet Count 46 K/mm3 (140-440)
[2018-06-26] MEDS: SODIUM BICARBONATE PO SCH ×4 (09:59→20:46)
[2018-06-26] MEDS: XIFAXAN PO SCH ×2 (10:00→22:28)
[2018-06-26] MEDS: TRENTAL PO SCH ×2 (10:00→22:28)
[2018-06-26] MEDS: ZITHROMAX PO SCH (10:00)
[2018-06-26] MEDS: THERAGRAN Tab PO SCH (10:38)
--- NOTE | 2018-06-26 11:44 | Gastroenterology Progress Note ---
Assessment and Plan 1.elevated LFTs 2.jaundice 3.acute liver failure 4.ETOH abuse -afebrile -WBC 30.1-trending up -H/H 10.8/33.4 -plt 46, INR 1.92-trending up -LFTs trending up-T.kurt 29.30, AST 224, ALT 47, alk phos 296 -ammonia trended down (now WNL 47) -lipase 99 -alcohol level 0.11 on admission -abd U/S showed fatty infiltration of liver, distended gallbladder (no gallstones), and dilation of CBD (1.1 cm) -etiology- acute alcoholic hepatitis (suspect underlying cirrhosis given history and labs) -clinically, patient is markedly worse today with increased leukocytosis likely from sepsis of JENNIFER wound. Noted to be lethargic upon exam with now on flakito-mask s/p code met this am for hypoxia. No evidence of abd pain, N/v, or signs of bleeding. -MR/MRCP for further evaluation of US results once medically stable -DF >30-continue trental (would prefer steroids but contraindicated with current sepsis) -continue lactulose, xifaxan, and MVI -antibiotics per ID recommendations -will order vit K to check synthetic function of liver -continue to trend labs and supportive care -alcohol cessation-CIWA protocol -electrolyte management per primary team -patient with poor prognosis and currently considering hospice or DNR status but no decision has been made at this time -will follow 4.sepsis 5.chronic RLE wound -culture +moderate gram negative rods Subjective Date of service: 06/26/18 Principal diagnosis: jaundice, alcoholic liver disease Interval history: Patient awaiting transfer to ICU s/p code Met this am due to hypoxia. Currently lethargic on flakito-mask. No evidence of abd pain, N/V, or active signs of bleeding. Objective - Constitutional Vitals: Temp Pulse Resp BP Pulse Ox 97.6 F 92 H 24 149/89 96 06/26/18 04:52 06/26/18 04:52 06/26/18 04:52 06/26/18 04:52 06/26/18 04:52 General appearance: mild distress, other (lethargic) - EENT Eyes: scleral icterus - Respiratory Respiratory: bilateral: diminished - Cardiovascular Rhythm: regular - Gastrointestinal General gastrointestinal: Present: soft, non-distended, normal bowel sounds - Labs CBC & Chem 7: 06/26/18 08:11 06/26/18 08:11 Labs: Laboratory Results - last 24 hr 06/25/18 06/25/18 06/25/18 10:10 12:12 12:12 WBC RBC Hgb Hct MCV MCH MCHC RDW Plt Count PT 23.3 H INR 1.92 H POC ABG pH POC ABG pO2 POC ABG HCO3 POC ABG Total CO2 POC ABG O2 Sat POC ABG Base Excess FiO2 Sodium Potassium Chloride Carbon Dioxide Anion Gap BUN Creatinine Estimated GFR BUN/Creatinine Ratio Glucose POC Glucose Calcium Magnesium 1.30 L Total Bilirubin AST ALT Alkaline Phosphatase Ammonia 14.0 L Troponin T Total Protein Albumin Albumin/Globulin Ratio 06/26/18 06/26/18 06/26/18 08:06 08:11 08:11 WBC 30.1 H RBC 3.20 L Hgb 10.8 L Hct 33.4 L MCV 105 H MCH 34 H MCHC 32 RDW 21.3 H Plt Count 46 L PT INR POC ABG pH POC ABG pO2 POC ABG HCO3 POC ABG Total CO2 POC ABG O2 Sat POC ABG Base Excess FiO2 Sodium 144 Potassium 3.9 Chloride 115.4 H Carbon Dioxide 17 L Anion Gap 16 BUN 16 Creatinine 0.2 L Estimated GFR > 60 BUN/Creatinine Ratio 80 Glucose 104 H POC Glucose 102 Calcium 7.2 L Magnesium Total Bilirubin 29.30 H AST 224 H ALT 47 Alkaline Phosphatase 296 H Ammonia Troponin T Total Protein 4.9 L Albumin 1.8 L Albumin/Globulin Ratio 0.6 06/26/18 06/26/18 06/26/18 08:11 08:13 08:20 WBC RBC Hgb Hct MCV MCH MCHC RDW Plt Count PT INR POC ABG pH 7.438 POC ABG pO2 190 H POC ABG HCO3 16.4 POC ABG Total CO2 17 POC ABG O2 Sat 100 POC ABG Base Excess -8 FiO2 50 Sodium Potassium Chloride Carbon Dioxide Anion Gap BUN Creatinine Estimated GFR BUN/Creatinine Ratio Glucose POC Glucose Calcium Magnesium Total Bilirubin AST ALT Alkaline Phosphatase Ammonia 47.0 Troponin T < 0.010 Total Protein Albumin Albumin/Globulin Ratio
--- NOTE | 2018-06-26 11:47 | Consultation ---
History of Present Illness - Reason for Consult Consult date: 06/26/18 right leg infection Requesting physician: MARCELA MERCER - History of Present Illness 59 yo man with a history of severe EtOH abuse, previous DTs, previous ETOH- associated seizure; admitted on 06/22/2018 due to 24 hour of altered mental status. Per family he had a possible syncopal episode while in the shower. History is unclear as there is no family at bedside. In the ED, temp 100.2, HR 118, R 47 , O2 sat 98%, BP 98/58. WBC 7.7, Hg 11.1, Plat 58. Creat 3.1. NA 125. Ddimer 1064. Bili 23. AST 448. ALT 92. Alkphos 326. Lipase 99. ETOH level 0.1. Lactate5.6. UA 20 wbc, trace LE. UA neg. Blood culture 06/22/2018 no growth today. Wound culture 06/22/2018 Proteus, E faecalis, E coli. CT of the head is within normal limits. Chest x-ray shows that the patient did not take adequate breath however there is no obvious infiltrates. X-ray of the L-spine per my interpretation shows that the patient does have significant degenerative disease however there is no acute fracture. XR Spine lumbosacral: Stable prominent Schmorl's deformities and multilevel compression deformities at the T12-L3 levels. US abdomen: showed coarsely echogenic hepatic parenchyma consistent with fatty infiltration. Distended gallbladder with questionable trace pericholecystic fluid. No gallstones visualized. Dilatation of the common bile duct measuring approximately 1.1 cm. V/Q scan: No PE Review of Systems: unable to obtain due to AMS Past History Past Medical History: hypertension Past Surgical History: No surgical history Social history: no significant social history Family history: no significant family history Medications and Allergies Allergies Allergy/AdvReac Type Severity Reaction Status Date / Time No Known Allergies Allergy Verified 02/22/16 11:50 Home Medications Medication Instructions Recorded Confirmed Last Taken Type Folic Acid [Folvite] 1 mg PO QDAY #30 tablet 09/19/17 06/25/18 Unknown Rx Multivitamin Tab [Multiple Vitamin 1 each PO QDAY #30 tablet 09/19/17 06/25/18 Unknown Rx TAB (Theragran)] Thiamine [Vitamin B-1] 100 mg PO QDAY #30 tablet 09/19/17 06/25/18 Unknown Rx hydrALAZINE [Apresoline TAB] 25 mg PO Q8HR #90 tablet 09/19/17 06/25/18 Unknown Rx Active Meds: Active Medications Azithromycin (Zithromax) 500 mg PO QDAY [facility] Stop: 06/27/18 10:01 Last Admin: 06/26/18 10:00 Dose: 500 mg Documented by: Metronidazole (Flagyl 500 Mg/100 Ml) 500 mg in 100 mls @ 100 mls/hr IV Q8H [facility]; Protocol Last Admin: 06/26/18 02:05 Dose: 100 mls/hr Documented by: Cefepime HCl (Maxipime/Ns 2 Gm/100 Ml) 2 gm in 100 mls @ 200 mls/hr IV Q12HR [facility] Last Admin: 06/26/18 09:53 Dose: 200 mls/hr Documented by: Potassium Chloride/Dextrose/Sod Cl (D5w/0.45% Nacl/Kcl 30 Meq) 30 meq in 1,000 mls @ 125 mls/hr IV DIRECT [facility] Last Admin: 06/26/18 04:12 Dose: 125 mls/hr Documented by: Lactulose (Cephulac) 20 gm PO Q8HR [facility] Last Admin: 06/26/18 06:28 Dose: 20 gm Documented by: Lorazepam (Ativan) 2 mg IV Q1HR PRN PRN Reason: CIWA-Ar 8-15 Last Admin: 06/26/18 06:40 Dose: 2 mg Documented by: Lorazepam (Ativan) 4 mg IV Q15MIN PRN PRN Reason: CIWA-Ar >25 Last Admin: 06/25/18 00:24 Dose: 2 mg Documented by: Morphine Sulfate (Morphine) 1 mg IV Q6H PRN PRN Reason: Pain, Moderate (4-6) Multivitamins (Theragran Tab) 1 each PO QDAY [facility] Last Admin: 06/26/18 10:38 Dose: 1 each Documented by: Ondansetron HCl (Zofran) 4 mg IV Q8H PRN PRN Reason: Nausea And Vomiting Pentoxifylline (Trental) 400 mg PO Q12HR [facility] Last Admin: 06/26/18 10:00 Dose: 400 mg Documented by: Rifaximin (Xifaxan) 550 mg PO BID [facility] Last Admin: 06/26/18 10:00 Dose: 550 mg Documented by: Sodium Bicarbonate (Sodium Bicarbonate) 1,300 mg PO TID [facility] Last Admin: 06/26/18 09:59 Dose: 1,300 mg Documented by: Physical Examination - Physical Exam Narrative exam: General appearance: somnolent in NAD, conversant Eyes: +marked icteric sclerae, moist conjunctivae; no lid-lag; PERRLA HENT: Atraumatic; oropharynx limited Neck: Trachea midline; supple, no thyromegaly or lymphadenopathy Lungs: CTA, with normal respiratory effort and no intercostal retractions CV: tachy Abdomen: Soft, obese soft Extremities: No peripheral edema or extremity lymphadenopathy Skin: Normal temperature, turgor and texture; no rash, ulcers or subcutaneous nodules Psych: no agitated Neuro: somnolent non verbal - Constitutional Vitals: Vital Signs Temp Pulse Resp BP Pulse Ox 97.6 F 92 H 24 149/89 96 06/26/18 04:52 06/26/18 04:52 06/26/18 04:52 06/26/18 04:52 06/26/18 04:52 Temperature -Last 24 Hours Temperature 97.6 F Temperature 98.2 F Temperature 98.2 F Temperature 97.9 F Results - Labs CBC & Chem 7: 06/26/18 08:11 06/26/18 08:11 Labs: Abnormal lab results 06/25/18 06/25/18 06/25/18 Range/Units 10:10 12:12 12:12 WBC (4.5-11.0) K/mm3 RBC (3.65-5.03) M/mm3 Hgb (11.8-15.2) gm/dl Hct (35.5-45.6) % MCV (84-94) fl MCH (28-32) pg RDW (13.2-15.2) % Plt Count (140-440) K/mm3 PT 23.3 H (12.2-14.9) Sec. INR 1.92 H (0.87-1.13) POC ABG pO2 (80-105) Chloride (98-107) mmol/L Carbon Dioxide (22-30) mmol/L Creatinine (0.8-1.5) mg/dL Glucose (75-100) mg/dL Calcium (8.4-10.2) mg/dL Magnesium 1.30 L (1.7-2.3) mg/dL Total Bilirubin (0.1-1.2) mg/dL AST (5-40) units/L Alkaline Phosphatase (35-129) units/L Ammonia 14.0 L (25-60) umol/L Total Protein (6.3-8.2) g/dL Albumin (3.9-5) g/dL 06/26/18 06/26/18 06/26/18 Range/Units 08:11 08:11 08:20 WBC 30.1 H (4.5-11.0) K/mm3 RBC 3.20 L (3.65-5.03) M/mm3 Hgb 10.8 L (11.8-15.2) gm/dl Hct 33.4 L (35.5-45.6) % MCV 105 H (84-94) fl MCH 34 H (28-32) pg RDW 21.3 H (13.2-15.2) % Plt Count 46 L (140-440) K/mm3 PT (12.2-14.9) Sec. INR (0.87-1.13) POC ABG pO2 190 H (80-105) Chloride 115.4 H (98-107) mmol/L Carbon Dioxide 17 L (22-30) mmol/L Creatinine 0.2 L (0.8-1.5) mg/dL Glucose 104 H (75-100) mg/dL Calcium 7.2 L (8.4-10.2) mg/dL Magnesium (1.7-2.3) mg/dL Total Bilirubin 29.30 H (0.1-1.2) mg/dL AST 224 H (5-40) units/L Alkaline Phosphatase 296 H (35-129) units/L Ammonia (25-60) umol/L Total Protein 4.9 L (6.3-8.2) g/dL Albumin 1.8 L (3.9-5) g/dL Assessment and Plan Cultures: Blood culture 06/22/2018 no growth today. Wound culture 06/22/2018 Proteus, E faecalis, E coli Assessment: 59 yo man with a history of severe EtOH abuse, previous DTs, previous ETOH- associated seizure; admitted on 06/22/2018 due to 24 hour of altered mental sta tus and syncope: 1) Sepsis: Present on admission, manifested by fever, tachycardia, hypotension, increased lactate. Etiology most likely severe EOTH hepatitis +/- cholangitis +/- right leg wound infection. UA neg. CXR NO obvious infiltrates. 2) Severe EOTH hepatitis with acute liver failure and cholangitis. US showed coarsely echogenic hepatic parenchyma consistent with fatty infiltration. Di stended gallbladder with questionable trace pericholecystic fluid. No gallstones visualized. Dilatation of the common bile duct measuring approximately 1.1 cm. 3) Hepatic encephalopathy; CT of the head is within normal limits. 4) Chronic right leg wound ? infected v/s colonized. Wound culture 06/22/2018 Proteus, E faecalis, E coli. 5) Renal failure: renally adjusted abx Recommendations: - follow-up blood cultures, urine culture - continue cefepime for now - add vancomycin renally adjusted for now - MRCP pending - right leg XR and consider leg MRI if no other source found - reeat CXR Poor prognosis Lucinda Ferrari MD Infectious Diseases [employer] [facility] M [phone] O [phone]
[2018-06-26] MEDS ORDERED: VITAMIN K (ADULT ONLY) SUB-Q NR ×2 (12:00→15:15)
--- NOTE | 2018-06-26 16:18 | Progress Note ---
Assessment and Plan - Patient Problems (1) Metabolic acidosis Current Visit: Yes Status: Acute Plan to address problem: Metabolic acidosis currently on sodium bicarbonate 3 times a day as tolerated (2) Alcoholic liver disease Current Visit: Yes Status: Acute Plan to address problem: Decompensated Alcoholic liver disease markedly elevated bilirubin , icteric on exam, distended abdomen Trend LFTs GI following (3) Syncope Current Visit: Yes Status: Acute Qualifiers: Syncope type: vasovagal syncope Qualified Code(s): R55 - Syncope and collapse Plan to address problem: syncope : - fall precautions. (4) Transaminitis Current Visit: Yes Status: Acute Plan to address problem: Transaminitis 2/2 alcoholic liver disease - avoid hepatotoxic meds. (5) Hypomagnesemia Current Visit: Yes Status: Acute Plan to address problem: Hypomagnesemia :resolved. 2/2 alcohol depedence and magnesium wasting. -repeat magnesium : 1.9 -much improved Subjective Principal diagnosis: jaundice, alcoholic liver disease Interval history: 59-year-old gentleman with medical history significant for hypertension and alcohol abuse admitted following syncope found to have acute kidney injury which has since resolved CODE MET was called this morning due to decreased oxygenation, though supplemental oxygen. His saturation has improved He is confused Has abdominal distention with jaundice Review of systems Limited by patient clinical status Objective - Vital Signs Vital signs: Vital Signs - 12hr 06/26/18 06/26/18 06/26/18 04:52 11:00 12:10 Temperature 97.6 F 98.1 F Pulse Rate 92 H 97 H Respiratory 24 24 Rate Blood Pressure 149/89 110/82 O2 Sat by Pulse 96 96 97 Oximetry 06/26/18 13:40 Temperature Pulse Rate Respiratory Rate Blood Pressure O2 Sat by Pulse 99 Oximetry - General Appearance General appearance: obese, moderate distress EENT: ATNC, sclera incterus Neck: no JVD Respiratory: Present: Decreased Breath Sounds, Increased Expir. Phase Cardiology: regular, S1S2 Gastrointestinal: distended, organomegaly Integumentary: rash Neurologic: confused Psychiatric: depressed - Lab 06/26/18 08:11 06/26/18 08:11 Most recent lab results Calcium 7.2 mg/dL (8.4-10.2) L 06/26/18 08:11 Phosphorus 1.00 mg/dL (2.5-4.5) L 06/26/18 10:10 Magnesium 1.90 mg/dL (1.7-2.3) 06/26/18 10:10 - Imaging Chest x-ray: image reviewed (I received chest x-ray with some congestion ) Medications & Allergies - Medications Allergies/Adverse Reactions: Allergies No Known Allergies Allergy (Verified 02/22/16 11:50) Home Medications: Home Medications Medication Instructions Recorded Confirmed Last Taken Type Folic Acid [Folvite] 1 mg PO QDAY #30 tablet 09/19/17 06/25/18 Unknown Rx Multivitamin Tab [Multiple Vitamin 1 each PO QDAY #30 tablet 09/19/17 06/25/18 Unknown Rx TAB (Theragran)] Thiamine [Vitamin B-1] 100 mg PO QDAY #30 tablet 09/19/17 06/25/18 Unknown Rx hydrALAZINE [Apresoline TAB] 25 mg PO Q8HR #90 tablet 09/19/17 06/25/18 Unknown Rx Active Medications: Generic Name Dose Route Start Last Admin Trade Name Freq PRN Reason Stop Dose Admin Azithromycin 500 mg 06/25/18 10:00 06/26/18 10:00 Zithromax PO 06/27/18 10:01 500 mg QDAY [facility] Administration Metronidazole 500 mg in 100 mls @ 100 mls/hr 06/22/18 02:00 06/26/18 11:00 Flagyl 500 Mg/100 Ml IV 100 mls/hr Q8H [facility] Administration Protocol Cefepime HCl 2 gm in 100 mls @ 200 mls/hr 06/22/18 10:00 06/26/18 09:53 Maxipime/Ns 2 Gm/100 Ml IV 200 mls/hr Q12HR [facility] Administration Potassium Chloride/Dextrose/Sod Cl 30 meq in 1,000 mls @ 125 mls/hr 06/24/18 10:00 06/26/18 04:12 D5w/0.45% Nacl/Kcl 30 Meq IV 125 mls/hr DIRECT [facility] Administration Lactulose 20 gm 06/25/18 14:00 06/26/18 15:42 Cephulac PO Not Given Q8HR [facility] Lorazepam 2 mg 06/22/18 11:03 06/26/18 06:40 Ativan IV 2 mg Q1HR PRN Administration CIWA-Ar 8-15 Lorazepam 4 mg 06/22/18 11:03 06/25/18 00:24 Ativan IV 2 mg Q15MIN PRN Administration CIWA-Ar >25 Morphine Sulfate 1 mg 06/22/18 18:02 Morphine IV Q6H PRN Pain, Moderate (4-6) Multivitamins 1 each 06/23/18 10:00 06/26/18 10:38 Theragran Tab PO 1 each QDAY [facility] Administration Ondansetron HCl 4 mg 06/22/18 03:10 Zofran IV Q8H PRN Nausea And Vomiting Pentoxifylline 400 mg 06/24/18 22:00 06/26/18 10:00 Trental PO 400 mg Q12HR [facility] Administration Rifaximin 550 mg 06/22/18 22:00 06/26/18 10:00 Xifaxan PO 550 mg BID [facility] Administration Sodium Bicarbonate 1,300 mg 06/24/18 14:00 06/26/18 15:42 Sodium Bicarbonate PO Not Given TID [facility]
[2018-06-26] MEDS ORDERED: .VANCOMYCIN VIAL 1,000 MG in NACL 0.9% 100 ML IV SCH (17:00)
[2018-06-26] MEDS ORDERED: VANCOMYCIN 2,000 MG in NACL 0.9% 500 ML 500 ML IV ONE (18:00)
[2018-06-26 18:18] LABS: Hepatitis B Surface Antigen Non-Reactive (Negative); Hepatitis C Virus Antibody Non-Reactive (NonReactive)
--- NOTE | 2018-06-26 19:24 | Magnetic Resonance Report ---
PROCEDURE: MR ABDOMEN MRCP HISTORY: choledocholithasis FINDINGS: MRI of the abdomen was performed using axial fat saturated T2, axial T1-weighted gradient e cho images in and out of phase, coronal T2*gradient echo, coronal T1, coronal heavily T2-weighted MR cholangiogram. Examination is limited by patient motion. There is fatty infiltration of the liver as manifested by signal loss on chemical shift imaging. The gallbladder is very distended. No definite gallstone is seen. There is trace fluid around the gal lbladder. Although gallstones are not seen, cholecystitis is not entirely excluded. Consider ultrasou nd or HIDA is clinically indicated. The common duct is not dilated. No evidence of choledocholithiasis is seen. The spleen is normal in size. No adrenal lesion is seen. No focal pancreatic lesion is identified. There is no evidence of hydronephrosis. There is a small amount of perihepatic and perisplenic free fluid IMPRESSION: Distended gallbladder. There is some fluid around the gallbladder. Although gallstones ar e not seen, cholecystitis is not excluded The common duct is not dilated. No evidence of choledocholithiasis is seen. This document is electronically signed by Marko Soto MD., June 26 2018 07:22:29 PM ET
[2018-06-27] MEDS: FLAGYL 500 MG/100 ML 500 MG/100 ML BAG IV SCH ×3 (01:40→17:00)
[2018-06-27 05:37] LABS: INR 2.06 (0.87-1.13)
[2018-06-27 05:51] LABS: Alanine Aminotransferase 45 units/L (7-56); Albumin 1.8 g/dL (3.9-5); BUN/Creatinine Ratio 63; Blood Urea Nitrogen 19 mg/dL (9-20); Calcium 7.2 mg/dL (8.4-10.2); Hematocrit 29.6 % (35.5-45.6); Hemolysis Index 0; Mean Corpuscular HGB Conc 34 % (32-34); Mean Corpuscular Volume 102 fl (84-94); Red Cell Distribution Width 22.5 % (13.2-15.2)
[2018-06-27] MEDS: CEPHULAC PO SCH ×3 (05:55→22:45)
[2018-06-27] MEDS: VANCOMYCIN 1,500 MG in NACL 0.9% 500 ML 500 ML IV SCH ×2 (05:55→17:00)
[2018-06-27] MEDS: D5W/0.45% NACL/KCL 30 MEQ 30 MEQ/1,000 ML BAG IV SCH ×2 (05:58→12:26)
[2018-06-27 06:55] LABS: Eosinophils % (Manual) 0 % (0.0-4.3); Total Cells Counted 100
[2018-06-27 06:56] LABS: Anisocytosis 1+; Macrocytosis 1+
[2018-06-27 06:57] LABS: Schistocytes Rare
[2018-06-27 06:58] LABS: Platelet Count 42 K/mm3 (140-440); Platelet Estimate Cons; Poikilocytosis Few; Target Cells Few
[2018-06-27] MEDS: SODIUM BICARBONATE PO SCH ×3 (08:00→22:30)
[2018-06-27] MEDS: MAXIPIME/NS 2 GM/100 ML 2 GM/100 ML BAG IV SCH ×3 (09:25→16:15)
[2018-06-27] MEDS: THERAGRAN Tab PO SCH (09:26)
[2018-06-27] MEDS: TRENTAL PO SCH ×2 (09:26→22:25)
[2018-06-27] MEDS: XIFAXAN PO SCH ×2 (09:26→22:25)
--- NOTE | 2018-06-27 14:10 | Gastroenterology Progress Note ---
Assessment and Plan 1.elevated LFTs 2.jaundice 3.acute liver failure: due to alcoholic hepatitis in the setting of underlying cirrhosis. 4.ETOH abuse - mental status appears to be slightly improved although this is my first evaluation of him today. He is oriented to place and not lethargic on exam. - HD stable and afebrile. - in terms of labs, wbc trending down and T.bili slightly trending down but remains elevated along with AST/ALT/Alk phos. - on trental for alcoholic hepatitis. steroids not started due to chronic leg wound and concern for infection/sepsis. - Reviewed MRCP results showing no biliary ductal dilation. -DF >30-continue trental (would prefer steroids but contraindicated with current sepsis) -continue lactulose, xifaxan, and MVI -antibiotics per ID recommendations -continue to trend labs and supportive care -alcohol cessation-[facility] protocol -electrolyte management per primary team -patient with poor prognosis and currently considering hospice or DNR status but no decision has been made at this time -will follow 4.sepsis 5.chronic RLE wound -culture +moderate gram negative rods - Patient Problems (1) Acute alcoholic hepatitis Current Visit: Yes Status: Acute (2) Hepatic encephalopathy Current Visit: Yes Status: Acute (3) Hyperbilirubinemia Current Visit: Yes Status: Acute Subjective Date of service: 06/27/18 Principal diagnosis: jaundice, alcoholic liver disease Interval history: Patient awake and able to state that he is at [facility]. States he wants to drink. No abdominal pain. Objective - Constitutional Vitals: Temp Pulse Resp BP Pulse Ox 97.2 F L 92 H 24 123/84 99 06/27/18 12:36 06/27/18 12:36 06/27/18 12:36 06/27/18 12:36 06/27/18 12:36 General appearance: no acute distress - EENT Eyes: scleral icterus ENT: hearing intact - Cardiovascular Rhythm: regular Heart Sounds: Present: S1 & S2 - Gastrointestinal General gastrointestinal: Present: soft, non-tender, distended, normal bowel sounds - Neurologic Neurological: oriented to place - Labs CBC & Chem 7: 06/27/18 04:53 06/27/18 04:53 Labs: Laboratory Results - last 24 hr 06/26/18 06/27/18 06/27/18 16:47 04:53 04:53 WBC 20.6 H RBC 2.90 L Hgb 10.0 L Hct 29.6 L MCV 102 H MCH 34 H MCHC 34 RDW 22.5 H Plt Count 42 L Add Manual Diff Complete Total Counted 100 Seg Neuts % (Manual) 57.0 Band Neutrophils % 6.0 Lymphocytes % (Manual) 17.0 Reactive Lymphs % (Man) 0 Monocytes % (Manual) 14.0 H Eosinophils % (Manual) 0 Basophils % (Manual) 1.0 Metamyelocytes % 5.0 Myelocytes % 0 Promyelocytes % 0 Blast Cells % 0 Nucleated RBC % 85.0 H Seg Neutrophils # Man 0.0 L Band Neutrophils # 0.0 Lymphocytes # (Manual) 0.0 L Abs React Lymphs (Man) 0.0 Monocytes # (Manual) 0.0 Eosinophils # (Manual) 0.0 Basophils # (Manual) 0.0 Metamyelocytes # 0.0 Myelocytes # 0.0 Promyelocytes # 0.0 Blast Cells # 0.0 WBC Morphology Not Reportable Hypersegmented Neuts Not Reportable Hyposegmented Neuts Not Reportable Hypogranular Neuts Not Reportable Smudge Cells Not Reportable Toxic Granulation Not Reportable Toxic Vacuolation Not Reportable Dohle Bodies Not Reportable Pelger-Huet Anomaly Not Reportable Elaine Rods Not Reportable Platelet Estimate Cons Clumped Platelets Not Reportable Plt Clumps, EDTA Not Reportable Large Platelets Not Reportable Giant Platelets Not Reportable Platelet Satelliting Not Reportable Plt Morphology Comment Not Reportable RBC Morphology Not Reportable Dimorphic RBCs Not Reportable Polychromasia Not Reportable Hypochromasia Not Reportable Poikilocytosis Few Anisocytosis 1+ Microcytosis Not Reportable Macrocytosis 1+ Spherocytes Not Reportable Pappenheimer Bodies Not Reportable Sickle Cells Not Reportable Target Cells Few Tear Drop Cells Not Reportable Ovalocytes Not Reportable Helmet Cells Not Reportable Lara-[place]field Bodies Not Reportable [place] Rings Not Reportable Michel Cells Not Reportable Bite Cells Not Reportable Crenated Cell Not Reportable Elliptocytes Not Reportable Acanthocytes (Spur) Not Reportable Rouleaux Not Reportable Hemoglobin C Crystals Not Reportable Schistocytes Rare Malaria parasites Not Reportable Tristen Bodies Not Reportable Hem Pathologist Commnt No PT 24.6 H INR 2.06 H Sodium Potassium Chloride Carbon Dioxide Anion Gap BUN Creatinine Estimated GFR BUN/Creatinine Ratio Glucose Calcium Total Bilirubin AST ALT Alkaline Phosphatase Total Protein Albumin Albumin/Globulin Ratio Hepatitis A IgM Ab Non-reactive Hep Bs Antigen Non-reactive Hep B Core IgM Ab Non-reactive Hepatitis C Antibody Non-reactive 06/27/18 04:53 WBC RBC Hgb Hct MCV MCH MCHC RDW Plt Count Add Manual Diff Total Counted Seg Neuts % (Manual) Band Neutrophils % Lymphocytes % (Manual) Reactive Lymphs % (Man) Monocytes % (Manual) Eosinophils % (Manual) Basophils % (Manual) Metamyelocytes % Myelocytes % Promyelocytes % Blast Cells % Nucleated RBC % Seg Neutrophils # Man Band Neutrophils # Lymphocytes # (Manual) Abs React Lymphs (Man) Monocytes # (Manual) Eosinophils # (Manual) Basophils # (Manual) Metamyelocytes # Myelocytes # Promyelocytes # Blast Cells # WBC Morphology Hypersegmented Neuts Hyposegmented Neuts Hypogranular Neuts Smudge Cells Toxic Granulation Toxic Vacuolation Dohle Bodies Pelger-Huet Anomaly Elaine Rods Platelet Estimate Clumped Platelets Plt Clumps, EDTA Large Platelets Giant Platelets Platelet Satelliting Plt Morphology Comment RBC Morphology Dimorphic RBCs Polychromasia Hypochromasia Poikilocytosis Anisocytosis Microcytosis Macrocytosis Spherocytes Pappenheimer Bodies Sickle Cells Target Cells Tear Drop Cells Ovalocytes Helmet Cells Laar-Woodfield Bodies [place] Rings Dumont Cells Bite Cells Crenated Cell Elliptocytes Acanthocytes (Spur) Rouleaux Hemoglobin C Crystals Schistocytes Malaria parasites Tristen Bodies Hem Pathologist Commnt PT INR Sodium 148 H Potassium 3.9 Chloride 121.5 H Carbon Dioxide 15 L Anion Gap 15 BUN 19 Creatinine 0.3 L Estimated GFR > 60 BUN/Creatinine Ratio 63 Glucose 98 Calcium 7.2 L Total Bilirubin 27.70 H AST 224 H ALT 45 Alkaline Phosphatase 289 H Total Protein 4.5 L Albumin 1.8 L Albumin/Globulin Ratio 0.7 Hepatitis A IgM Ab Hep Bs Antigen Hep B Core IgM Ab Hepatitis C Antibody - Imaging MRI: report reviewed
--- NOTE | 2018-06-27 14:38 | Progress Note ---
Assessment and Plan - Patient Problems (1) Metabolic acidosis Current Visit: Yes Status: Acute Plan to address problem: Metabolic acidosis currently on sodium bicarbonate 3 times a day as tolerated (2) Alcoholic liver disease Current Visit: Yes Status: Acute Plan to address problem: Decompensated Alcoholic liver disease markedly elevated bilirubin , icteric on exam, distended abdomen Trend LFTs GI following (3) Syncope Current Visit: Yes Status: Acute Qualifiers: Syncope type: vasovagal syncope Qualified Code(s): R55 - Syncope and collapse Plan to address problem: syncope : - fall precautions. (4) Transaminitis Current Visit: Yes Status: Acute (5) Hypomagnesemia Current Visit: Yes Status: Acute Plan to address problem: Hypomagnesemia :resolved. 2/2 alcohol depedence and magnesium wasting. -repeat magnesium : 1.9 -much improved (6) Hypernatremia Current Visit: Yes Status: Acute Plan to address problem: Hypernatremia : worsening 2/2 impaired free water access Will start D5W. Recheck RFP. Subjective Principal diagnosis: jaundice, alcoholic liver disease Interval history: 59-year-old gentleman with medical history significant for hypertension and alcohol abuse admitted following syncope found to have acute kidney injury which has since resolved He remains confused Has abdominal distention with jaundice Review of systems Limited by patient clinical status Objective - Vital Signs Vital signs: Vital Signs - 12hr 06/27/18 06/27/18 05:47 12:36 Temperature 98.1 F 97.2 F L Pulse Rate 91 H 92 H Respiratory 26 H 24 Rate Blood Pressure 111/80 123/84 O2 Sat by Pulse 97 99 Oximetry - General Appearance General appearance: well-developed, well-nourished EENT: ATNC, PERRL Neck: no JVD Respiratory: Present: Decreased Breath Sounds Cardiology: S1S2 Gastrointestinal: distended Integumentary: rash, chronic venous stasis Neurologic: confused, disoriented Musculoskeletal: joint swelling Psychiatric: depressed - Lab 06/27/18 04:53 06/27/18 04:53 Most recent lab results Calcium 7.2 mg/dL (8.4-10.2) L 06/27/18 04:53 Phosphorus 1.00 mg/dL (2.5-4.5) L 06/26/18 10:10 Magnesium 1.90 mg/dL (1.7-2.3) 06/26/18 10:10 Medications & Allergies - Medications Allergies/Adverse Reactions: Allergies No Known Allergies Allergy (Verified 02/22/16 11:50) Home Medications: Home Medications Medication Instructions Recorded Confirmed Last Taken Type Folic Acid [Folvite] 1 mg PO QDAY #30 tablet 09/19/17 06/25/18 Unknown Rx Multivitamin Tab [Multiple Vitamin 1 each PO QDAY #30 tablet 09/19/17 06/25/18 Unknown Rx TAB (Theragran)] Thiamine [Vitamin B-1] 100 mg PO QDAY #30 tablet 09/19/17 06/25/18 Unknown Rx hydrALAZINE [Apresoline TAB] 25 mg PO Q8HR #90 tablet 09/19/17 06/25/18 Unknown Rx Active Medications: Generic Name Dose Route Start Last Admin Trade Name Freq PRN Reason Stop Dose Admin Metronidazole 500 mg in 100 mls @ 100 mls/hr 06/22/18 02:00 06/27/18 09:25 Flagyl 500 Mg/100 Ml IV 100 mls/hr Q8H [facility] Administration Protocol Vancomycin HCl 1,500 mg/ 530 mls @ 333.333 mls/hr 06/27/18 06:00 06/27/18 05:55 Sodium Chloride IV 333.333 mls/hr Q12H [facility] Administration Cefepime HCl 2 gm in 100 mls @ 200 mls/hr 06/27/18 16:00 Maxipime/Ns 2 Gm/100 Ml IV Q8H [facility]DA Dextrose 1,000 mls @ 100 mls/hr 06/27/18 13:00 D5w IV DIRECT BRISEYDA Lactulose 20 gm 06/25/18 14:00 06/27/18 13:19 Cephulac PO 20 gm Q8HR [facility] Administration Lorazepam 2 mg 06/22/18 11:03 06/26/18 06:40 Ativan IV 2 mg Q1HR PRN Administration CIWA-Ar 8-15 Lorazepam 4 mg 06/22/18 11:03 06/25/18 00:24 Ativan IV 2 mg Q15MIN PRN Administration CIWA-Ar >25 Morphine Sulfate 1 mg 06/22/18 18:02 Morphine IV Q6H PRN Pain, Moderate (4-6) Multivitamins 1 each 06/23/18 10:00 06/27/18 09:26 Theragran Tab PO 1 each QDAY [facility] Administration Ondansetron HCl 4 mg 06/22/18 03:10 Zofran IV Q8H PRN Nausea And Vomiting Pentoxifylline 400 mg 06/24/18 22:00 06/27/18 09:26 Trental PO 400 mg Q12HR [facility] Administration Rifaximin 550 mg 06/22/18 22:00 06/27/18 09:26 Xifaxan PO 550 mg BID [facility] Administration Sodium Bicarbonate 1,300 mg 06/24/18 14:00 06/27/18 13:19 Sodium Bicarbonate PO 1,300 mg TID [facility] Administration
--- NOTE | 2018-06-27 15:49 | Progress Note ---
Assessment and Plan Assessment and plan: Patient is a 59 yo man with a history of Alcohol abuse admitted with altered mental status. According to ED documentation, the of the patient called paramedics because the patient had possible syncopal episode while in the shower. EMS records are not currently in his physical chart for my review. Talib eddy was admitted for suspected cholangitis, liver failure, sepsis from right leg infection and syncope. * CT of the head is within normal limits. * Chest x-ray shows that the patient did not take adequate breath however there is no obvious infiltrates. X-ray of the L-spine per my interpretation shows that the patient does have significant degenerative disease however there is no acute fracture * XR Spine lumbosacral: Stable prominent Schmorl's deformities and multilevel compression deformities at the T12-L3 levels. * US abdomen: IMPRESSION: Coarsely echogenic hepatic parenchyma consistent with fatty infiltration. Distended gallbladder with questionable trace pericholecystic fluid. No gallstones visualized. Dilatation of the common bile duct measuring approximately 1.1 cm. Distal obstructive process must be suspected. Further evaluation with CT and or correlation with MRCP should be considered. If acute cholecystitis is clinically suspected, correlation with HIDA scan may be helpful.. * V/Q scan: No PE * MRCP IMPRESSION: Distended gallbladder. There is some fluid around the gallbladder. Although gallstones are not seen, cholecystitis is not excluded The common duct is not dilated. No evidence of choledocholithiasis is seen. -Acute hypoxic respiratory failure with CODE MET on Friday06/26/18 because pulse ox dropped to 55% on RA: treat with O2, . 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 -Anemia SECODNARY TO ETOH AND LIVER failure: GI is following -Possible Choledocholethasis with LFT abnormalities -Syncope possible vasovagal related to above: added telemetry -Dialated CBD with distended gall bladder: too ill for HIDA scan at present, GI is following -Severe sepsis with >2 SOFA criteria Met due to lateral elongated RLL leg ulcerated infection growing multiple species, at least stage 4, poa: GS is following, on ABX, consult ID -Acute Kidney Injury with vasomotor nephropathy -Hyponatremia: monitor closely -Hypomagnesemia: monitor closely, add telemetry -ETOH INTOXICATION with BAL of 0.11 on admission, watch for withdrawal: CIWA ordered -Metabolic Acidosis -Lactic acidosis -Hypokalemia; monitor closely -Multilevel Compression deformities- T12-L3- No incontinence prognosis poor Spoke with Dr. Boone regarding admission to ICU after the Code Met on Friday06/27/18==>not critical enough yet D/W finance Fernanda at bedside. Full code CCT 31 minutes History Interval history: Patient was seen and examined. Follow-up on current diagnosis Liver failure. Overnight uneventful. Patient denies any pains barely speaking. Imaging, nursing note, chart, labs and old chart reviewed. Code Met called due to hypoxia, pulse ox dropped to 55% on Room air, now on o2. Fernanda who is his stated "fiance" is at bedside. He is not . He is from [facility] Physical - Physical exam Narrative exam: GEN: critical ill , moderate accessory muscle, somnolent, orientated to name, hospital HEENT: NCAT, EOMI, PERRL, OP Clear NECK: supple, no adenopathy, no thyromegaly, no JVD CVS/HEART: RRR, normal S1S2, pulses present bilaterally CHEST/LUNGS: diminished, tachypneic, Symmetrical chest expansion, good air entry bilaterally GI/Abdomen: soft, NTND, good bowel sounds, no guarding or rebound /Bladder: no suprapubic tenderness, no CVA or paraspinal tenderness EXT/Skin: no c/c/e, no obvious rash MSK: FROM x 4 Neuro: CN 2-12 grossly intact, no new focal deficits Psych: calm - Constitutional Vitals: Temp Pulse Resp BP Pulse Ox 97.2 F L 92 H 24 123/84 99 06/27/18 12:36 06/27/18 12:36 06/27/18 12:36 06/27/18 12:36 06/27/18 12:36 Results - Labs CBC & Chem 7: 06/27/18 04:53 06/27/18 04:53 Labs: Laboratory Last Values WBC 20.6 K/mm3 (4.5-11.0) H 06/27/18 04:53 RBC 2.90 M/mm3 (3.65-5.03) L 06/27/18 04:53 Hgb 10.0 gm/dl (11.8-15.2) L 06/27/18 04:53 Hct 29.6 % (35.5-45.6) L 06/27/18 04:53 MCV 102 fl (84-94) H 06/27/18 04:53 MCH 34 pg (28-32) H 06/27/18 04:53 MCHC 34 % (32-34) 06/27/18 04:53 RDW 22.5 % (13.2-15.2) H 06/27/18 04:53 Plt Count 42 K/mm3 (140-440) L 06/27/18 04:53 Add Manual Diff Complete 06/27/18 04:53 Total Counted 100 06/27/18 04:53 Seg Neuts % (Manual) 57.0 % (40.0-70.0) 06/27/18 04:53 Band Neutrophils % 6.0 % 06/27/18 04:53 Lymphocytes % (Manual) 17.0 % (13.4-35.0) 06/27/18 04:53 Reactive Lymphs % (Man) 0 % 06/27/18 04:53 Monocytes % (Manual) 14.0 % (0.0-7.3) H 06/27/18 04:53 Eosinophils % (Manual) 0 % (0.0-4.3) 06/27/18 04:53 Basophils % (Manual) 1.0 % (0.0-1.8) 06/27/18 04:53 Metamyelocytes % 5.0 % 06/27/18 04:53 Myelocytes % 0 % 06/27/18 04:53 Promyelocytes % 0 % 06/27/18 04:53 Blast Cells % 0 % 06/27/18 04:53 Nucleated RBC % 85.0 % (0.0-0.9) H 06/27/18 04:53 Seg Neutrophils # Man 0.0 K/mm3 (1.8-7.7) L 06/27/18 04:53 Band Neutrophils # 0.0 K/mm3 06/27/18 04:53 Lymphocytes # (Manual) 0.0 K/mm3 (1.2-5.4) L 06/27/18 04:53 Abs React Lymphs (Man) 0.0 K/mm3 06/27/18 04:53 Monocytes # (Manual) 0.0 K/mm3 (0.0-0.8) 06/27/18 04:53 Eosinophils # (Manual) 0.0 K/mm3 (0.0-0.4) 06/27/18 04:53 Basophils # (Manual) 0.0 K/mm3 (0.0-0.1) 06/27/18 04:53 Metamyelocytes # 0.0 K/mm3 06/27/18 04:53 Myelocytes # 0.0 K/mm3 06/27/18 04:53 Promyelocytes # 0.0 K/mm3 06/27/18 04:53 Blast Cells # 0.0 K/mm3 06/27/18 04:53 WBC Morphology Not Reportable 06/27/18 04:53 Hypersegmented Neuts Not Reportable 06/27/18 04:53 Hyposegmented Neuts Not Reportable 06/27/18 04:53 Hypogranular Neuts Not Reportable 06/27/18 04:53 Smudge Cells Not Reportable 06/27/18 04:53 Toxic Granulation Not Reportable 06/27/18 04:53 Toxic Vacuolation Not Reportable 06/27/18 04:53 Dohle Bodies Not Reportable 06/27/18 04:53 Pelger-Huet Anomaly Not Reportable 06/27/18 04:53 Elaine Rods Not Reportable 06/27/18 04:53 Platelet Estimate Cons 06/27/18 04:53 Clumped Platelets Not Reportable 06/27/18 04:53 Plt Clumps, EDTA Not Reportable 06/27/18 04:53 Large Platelets Not Reportable 06/27/18 04:53 Giant Platelets Not Reportable 06/27/18 04:53 Platelet Satelliting Not Reportable 06/27/18 04:53 Plt Morphology Comment Not Reportable 06/27/18 04:53 RBC Morphology Not Reportable 06/27/18 04:53 Dimorphic RBCs Not Reportable 06/27/18 04:53 Polychromasia Not Reportable 06/27/18 04:53 Hypochromasia Not Reportable 06/27/18 04:53 Poikilocytosis Few 06/27/18 04:53 Anisocytosis 1+ 06/27/18 04:53 Microcytosis Not Reportable 06/27/18 04:53 Macrocytosis 1+ 06/27/18 04:53 Spherocytes Not Reportable 06/27/18 04:53 Pappenheimer Bodies Not Reportable 06/27/18 04:53 Sickle Cells Not Reportable 06/27/18 04:53 Target Cells Few 06/27/18 04:53 Tear Drop Cells Not Reportable 06/27/18 04:53 Ovalocytes Not Reportable 06/27/18 04:53 Helmet Cells Not Reportable 06/27/18 04:53 [place] Bodies Not Reportable 06/27/18 04:53 [place] Rings Not Reportable 06/27/18 04:53 Michel Cells Not Reportable 06/27/18 04:53 Bite Cells Not Reportable 06/27/18 04:53 Crenated Cell Not Reportable 06/27/18 04:53 Elliptocytes Not Reportable 06/27/18 04:53 Acanthocytes (Spur) Not Reportable 06/27/18 04:53 Rouleaux Not Reportable 06/27/18 04:53 Hemoglobin C Crystals Not Reportable 06/27/18 04:53 Schistocytes Rare 06/27/18 04:53 Malaria parasites Not Reportable 06/27/18 04:53 Tristen Bodies Not Reportable 06/27/18 04:53 Hem Pathologist Commnt No 06/27/18 04:53 PT 24.6 Sec. (12.2-14.9) H 06/27/18 04:53 INR 2.06 (0.87-1.13) H 06/27/18 04:53 APTT 71.9 Sec. (24.2-36.6) H* 06/22/18 01:02 D-Dimer 1064.09 ng/mlDDU (0-234) H 06/22/18 01:02 POC ABG pH 7.438 (7.35-7.45) 06/26/18 08:20 POC ABG pO2 190 (80-105) H 06/26/18 08:20 POC ABG HCO3 16.4 (22-26 mml/L) 06/26/18 08:20 POC ABG Total CO2 17 (23-27mmol/L) 06/26/18 08:20 POC ABG O2 Sat 100 06/26/18 08:20 POC ABG Base Excess -8 ((-2) - (+3)mmol/L) 06/26/18 08:20 FiO2 50 % 06/26/18 08:20 Sodium 148 mmol/L (137-145) H 06/27/18 04:53 Potassium 3.9 mmol/L (3.6-5.0) 06/27/18 04:53 Chloride 121.5 mmol/L (98-107) H 06/27/18 04:53 Carbon Dioxide 15 mmol/L (22-30) L 06/27/18 04:53 Anion Gap 15 mmol/L 06/27/18 04:53 BUN 19 mg/dL (9-20) 06/27/18 04:53 Creatinine 0.3 mg/dL (0.8-1.5) L 06/27/18 04:53 Estimated GFR > 60 ml/min 06/27/18 04:53 BUN/Creatinine Ratio 63 % 06/27/18 04:53 Glucose 98 mg/dL (75-100) 06/27/18 04:53 POC Glucose 102 (70-105) 06/26/18 08:06 Lactic Acid 1.40 mmol/L (0.7-2.0) 06/23/18 05:27 Calcium 7.2 mg/dL (8.4-10.2) L 06/27/18 04:53 Phosphorus 1.00 mg/dL (2.5-4.5) L 06/26/18 10:10 Magnesium 1.90 mg/dL (1.7-2.3) 06/26/18 10:10 Total Bilirubin 27.70 mg/dL (0.1-1.2) H 06/27/18 04:53 Direct Bilirubin 4.5 mg/dL (0-0.2) H 06/22/18 07:22 Indirect Bilirubin 18.0 mg/dL 06/22/18 07:22 AST 224 units/L (5-40) H 06/27/18 04:53 ALT 45 units/L (7-56) 06/27/18 04:53 Alkaline Phosphatase 289 units/L (35-129) H 06/27/18 04:53 Ammonia 47.0 umol/L (25-60) 06/26/18 08:11 Troponin T < 0.010 ng/mL (0.00-0.029) 06/26/18 08:13 NT-Pro-B Natriuret Pep 389.9 pg/mL (0-900) 06/26/18 10:10 Total Protein 4.5 g/dL (6.3-8.2) L 06/27/18 04:53 Albumin 1.8 g/dL (3.9-5) L 06/27/18 04:53 Albumin/Globulin Ratio 0.7 % 06/27/18 04:53 Lipase 99 units/L (13-60) H 06/22/18 01:02 Plasma/Serum Alcohol 0.11 % (0-0.07) H 06/22/18 02:57 Hepatitis A IgM Ab Non-reactive (NonReactive) 06/26/18 16:47 Hep Bs Antigen Non-reactive (Negative) 06/26/18 16:47 Hep B Core IgM Ab Non-reactive (NonReactive) 06/26/18 16:47 Hepatitis C Antibody Non-reactive (NonReactive) 06/26/18 16:47 Active Medications - Current Medications Current Medications: Generic Name Dose Route Start Last Admin Trade Name Freq PRN Reason Stop Dose Admin Metronidazole 500 mg in 100 mls @ 100 mls/hr 06/22/18 02:00 06/27/18 09:25 Flagyl 500 Mg/100 Ml IV 100 mls/hr Q8H BRISEYDA Administration Protocol Vancomycin HCl 1,500 mg/ 530 mls @ 333.333 mls/hr 06/27/18 06:00 06/27/18 05:55 Sodium Chloride IV 333.333 mls/hr Q12H BRISEYDA Administration Cefepime HCl 2 gm in 100 mls @ 200 mls/hr 06/27/18 16:00 Maxipime/Ns 2 Gm/100 Ml IV Q8H BRISEYDA Dextrose 1,000 mls @ 100 mls/hr 06/27/18 13:00 D5w IV DIRECT BRISEYDA Lactulose 20 gm 06/25/18 14:00 06/27/18 13:19 Cephulac PO 20 gm Q8HR BRISEYDA Administration Lorazepam 2 mg 06/22/18 11:03 06/26/18 06:40 Ativan IV 2 mg Q1HR PRN Administration CIWA-Ar 8-15 Lorazepam 4 mg 06/22/18 11:03 06/25/18 00:24 Ativan IV 2 mg Q15MIN PRN Administration CIWA-Ar >25 Morphine Sulfate 1 mg 06/22/18 18:02 Morphine IV Q6H PRN Pain, Moderate (4-6) Multivitamins 1 each 06/23/18 10:00 06/27/18 09:26 Theragran Tab PO 1 each QDAY BRISEYDA Administration Ondansetron HCl 4 mg 06/22/18 03:10 Zofran IV Q8H PRN Nausea And Vomiting Pentoxifylline 400 mg 06/24/18 22:00 06/27/18 09:26 Trental PO 400 mg Q12HR BRISEYDA Administration Rifaximin 550 mg 06/22/18 22:00 06/27/18 09:26 Xifaxan PO 550 mg BID BRISEYDA Administration Sodium Bicarbonate 1,300 mg 06/24/18 14:00 06/27/18 13:19 Sodium Bicarbonate PO 1,300 mg TID BRISEYDA Administration Nutrition/Malnutrition Assess - Dietary Evaluation Nutrition/Malnutrition Findings: Nutrition Notes Start: 06/23/18 14:11 Freq: Status: Active Protocol: Document 06/25/18 11:23 TW (Rec: 06/25/18 11:31 TW [id number]) Co-Sign 06/25/18 11:23 LP Nutrition Notes Initial or Follow up Reassessment Current Diagnosis Acute Kidney Injury, Hypertension Other Pertinent Diagnosis seizures, wounds, AMS, Etoh related liver disease Current Diet CHO consistent Labs/Tests K 3.3 BG 110 Pertinent Medications reviewed Height 5 ft 6 in Weight 108.86 kg [place] Body Weight (kg) 64.54 BMI 38.7 Subjective/Other Information F/U for intakes/ diet advancement. Noted diet advanced to CHO consistent but no sign of DM. Tech in room feeding pt. Tech reports pt eats 100% of meals and tolerates well. Percent of energy/protein needs met: 100%/100% Burn Absent Trauma Absent GI Symptoms None Food Allergy No Current % PO Good (75-100%) Minimum of two criteria No #1 Nutrition Diagnosis Inadequate oral intake As Evidenced by Signs and Symptoms pt eating 100% of meals Diagnosis Progress(for reassessment Resolved documentation) Is patient on ventilator? No Is Patient Ambulatory and/or Out of Bed No REE[place] bed) 2208.168 Kcal/Kg value to use for calculation 16 Approximate Energy Requirements Using 1742 kcal/Kg Calculation Used for Recommendations Kcal/kg Additional Notes AdjBW: 86.72kg pro: 69-87g/day (0.8-1g/kg) fluid: 1mL/kcal Nutrition Intervention Change Diet Order: Change to cardiac diet Goal #1 Continue to meet at least 75% of kcal and pro needs Anticipated Discharge Needs: Unable to determine at this time Revisit per MD consult or patient Sign Off request:
[2018-06-27] MEDS: D5W 1,000 ML IV SCH (17:00)
[2018-06-28] MEDS: MAXIPIME/NS 2 GM/100 ML 2 GM/100 ML BAG IV SCH ×3 (01:00→16:36)
[2018-06-28] MEDS: D5W 1,000 ML IV SCH ×2 (04:18→14:23)
[2018-06-28] MEDS: VANCOMYCIN 1,500 MG in NACL 0.9% 500 ML 500 ML IV SCH ×2 (06:01→19:38)
[2018-06-28] MEDS: CEPHULAC PO SCH ×3 (06:03→21:46)
[2018-06-28 06:11] LABS: Hematocrit 30.5 % (35.5-45.6); Hemoglobin 10.3 gm/dl (11.8-15.2); Mean Corpuscular HGB Conc 34 % (32-34); Mean Corpuscular Volume 103 fl (84-94); Red Blood Count 2.97 M/mm3 (3.65-5.03); Red Cell Distribution Width 22.9 % (13.2-15.2)
[2018-06-28 06:20] LABS: INR 2.16 (0.87-1.13)
[2018-06-28 06:31] LABS: Alanine Aminotransferase 46 units/L (7-56); Albumin 1.9 g/dL (3.9-5); BUN/Creatinine Ratio 90; Blood Urea Nitrogen 18 mg/dL (9-20); Calcium 7.5 mg/dL (8.4-10.2); Hemolysis Index 0
[2018-06-28] MEDS ORDERED: POTASSIUM CHLORIDE PO ONE (08:00)
[2018-06-28] MEDS ORDERED: K-DUR PO ONE (08:00)
[2018-06-28] MEDS: KCL 10MEQ/100ML 10 MEQ/100 ML BAG IV SCH ×6 (08:59→14:29)
[2018-06-28] MEDS: SODIUM BICARBONATE PO SCH ×5 (09:01→21:03)
[2018-06-28 09:05] LABS: Platelet Count 48 K/mm3 (140-440)
[2018-06-28] MEDS: TRENTAL PO SCH ×2 (11:26→21:45)
[2018-06-28] MEDS: XIFAXAN PO SCH ×2 (11:26→21:46)
[2018-06-28] MEDS: THERAGRAN Tab PO SCH (11:26)
--- NOTE | 2018-06-28 13:13 | Progress Note ---
Assessment and Plan Assessment and plan: Patient is a 59 yo man with a history of Alcohol abuse admitted with altered mental status. According to ED documentation, the of the patient called paramedics because the patient had possible syncopal episode while in the shower. EMS records are not currently in his physical chart for my review. Talib eddy was admitted for suspected cholangitis, liver failure, sepsis from right leg infection and syncope. * CT of the head is within normal limits. * Chest x-ray shows that the patient did not take adequate breath however there is no obvious infiltrates. X-ray of the L-spine per my interpretation shows that the patient does have significant degenerative disease however there is no acute fracture * XR Spine lumbosacral: Stable prominent Schmorl's deformities and multilevel compression deformities at the T12-L3 levels. * US abdomen: IMPRESSION: Coarsely echogenic hepatic parenchyma consistent with fatty infiltration. Distended gallbladder with questionable trace pericholecystic fluid. No gallstones visualized. Dilatation of the common bile duct measuring approximately 1.1 cm. Distal obstructive process must be suspected. Further evaluation with CT and or correlation with MRCP should be considered. If acute cholecystitis is clinically suspected, correlation with HIDA scan may be helpful.. * V/Q scan: No PE * MRCP IMPRESSION: Distended gallbladder. There is some fluid around the gallbladder. Although gallstones are not seen, cholecystitis is not excluded The common duct is not dilated. No evidence of choledocholithiasis is seen. -Acute hypoxic respiratory failure with CODE MET on Friday06/26/18 because pulse ox dropped to 55% on RA: treat with O2, . 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 -Anemia SECODNARY TO ETOH AND LIVER failure: GI is following -Possible Choledocholethasis with LFT abnormalities -Syncope possible vasovagal related to above: added telemetry -Dialated CBD with distended gall bladder: too ill for HIDA scan at present, GI is following -Severe sepsis with >2 SOFA criteria Met due to lateral elongated RLL leg ulcerated infection growing multiple species, at least stage 4, poa: GS is following, on ABX, consult ID -Acute Kidney Injury with vasomotor nephropathy -Hyponatremia: monitor closely -Hypomagnesemia: monitor closely, add telemetry -ETOH INTOXICATION with BAL of 0.11 on admission, watch for withdrawal: CIWA ordered -Metabolic Acidosis -Lactic acidosis -Hypokalemia; monitor closely -Multilevel Compression deformities- T12-L3- No incontinence prognosis poor Spoke with Dr. Boone regarding admission to ICU after the Code Met on Friday06/26/18==>not critical enough yet D/W finance Fernanda at bedside on Friday06/27/18 Full code History Interval history: Patient was seen and examined. Follow-up on current diagnosis Liver failure. Overnight uneventful. Patient denies any pains barely speaking. Imaging, nursing note, chart, labs and old chart reviewed. Code Met called due to hypoxia, pulse ox dropped to 55% on Room air, now on o2. Fernanda who is his stated "fiance" is at bedside. He is not . He is from [facility]ist Physical - Physical exam Narrative exam: GEN: critical ill , moderate accessory muscle, somnolent, orientated to name, hospital HEENT: NCAT, EOMI, PERRL, OP Clear NECK: supple, no adenopathy, no thyromegaly, no JVD CVS/HEART: RRR, normal S1S2, pulses present bilaterally CHEST/LUNGS: diminished, tachypneic, Symmetrical chest expansion, good air entry bilaterally GI/Abdomen: soft, NTND, good bowel sounds, no guarding or rebound /Bladder: no suprapubic tenderness, no CVA or paraspinal tenderness EXT/Skin: no c/c/e, no obvious rash MSK: FROM x 4 Neuro: CN 2-12 grossly intact, no new focal deficits Psych: calm - Constitutional Vitals: Temp Pulse Resp BP Pulse Ox 98.0 F 102 H 40 H 132/93 97 06/28/18 11:51 06/28/18 11:51 06/28/18 11:51 06/28/18 11:51 06/28/18 11:51 Results - Labs CBC & Chem 7: 06/28/18 05:10 06/28/18 05:10 Labs: Laboratory Last Values WBC 31.9 K/mm3 (4.5-11.0) H 06/28/18 05:10 RBC 2.97 M/mm3 (3.65-5.03) L 06/28/18 05:10 Hgb 10.3 gm/dl (11.8-15.2) L 06/28/18 05:10 Hct 30.5 % (35.5-45.6) L 06/28/18 05:10 MCV 103 fl (84-94) H 06/28/18 05:10 MCH 35 pg (28-32) H 06/28/18 05:10 MCHC 34 % (32-34) 06/28/18 05:10 RDW 22.9 % (13.2-15.2) H 06/28/18 05:10 Plt Count 48 K/mm3 (140-440) L 06/28/18 05:10 Add Manual Diff Complete 06/27/18 04:53 Total Counted 100 06/27/18 04:53 Seg Neuts % (Manual) 57.0 % (40.0-70.0) 06/27/18 04:53 Band Neutrophils % 6.0 % 06/27/18 04:53 Lymphocytes % (Manual) 17.0 % (13.4-35.0) 06/27/18 04:53 Reactive Lymphs % (Man) 0 % 06/27/18 04:53 Monocytes % (Manual) 14.0 % (0.0-7.3) H 06/27/18 04:53 Eosinophils % (Manual) 0 % (0.0-4.3) 06/27/18 04:53 Basophils % (Manual) 1.0 % (0.0-1.8) 06/27/18 04:53 Metamyelocytes % 5.0 % 06/27/18 04:53 Myelocytes % 0 % 06/27/18 04:53 Promyelocytes % 0 % 06/27/18 04:53 Blast Cells % 0 % 06/27/18 04:53 Nucleated RBC % 85.0 % (0.0-0.9) H 06/27/18 04:53 Seg Neutrophils # Man 0.0 K/mm3 (1.8-7.7) L 06/27/18 04:53 Band Neutrophils # 0.0 K/mm3 06/27/18 04:53 Lymphocytes # (Manual) 0.0 K/mm3 (1.2-5.4) L 06/27/18 04:53 Abs React Lymphs (Man) 0.0 K/mm3 06/27/18 04:53 Monocytes # (Manual) 0.0 K/mm3 (0.0-0.8) 06/27/18 04:53 Eosinophils # (Manual) 0.0 K/mm3 (0.0-0.4) 06/27/18 04:53 Basophils # (Manual) 0.0 K/mm3 (0.0-0.1) 06/27/18 04:53 Metamyelocytes # 0.0 K/mm3 06/27/18 04:53 Myelocytes # 0.0 K/mm3 06/27/18 04:53 Promyelocytes # 0.0 K/mm3 06/27/18 04:53 Blast Cells # 0.0 K/mm3 06/27/18 04:53 WBC Morphology Not Reportable 06/27/18 04:53 Hypersegmented Neuts Not Reportable 06/27/18 04:53 Hyposegmented Neuts Not Reportable 06/27/18 04:53 Hypogranular Neuts Not Reportable 06/27/18 04:53 Smudge Cells Not Reportable 06/27/18 04:53 Toxic Granulation Not Reportable 06/27/18 04:53 Toxic Vacuolation Not Reportable 06/27/18 04:53 Dohle Bodies Not Reportable 06/27/18 04:53 Pelger-Huet Anomaly Not Reportable 06/27/18 04:53 Elaine Rods Not Reportable 06/27/18 04:53 Platelet Estimate Cons 06/27/18 04:53 Clumped Platelets Not Reportable 06/27/18 04:53 Plt Clumps, EDTA Not Reportable 06/27/18 04:53 Large Platelets Not Reportable 06/27/18 04:53 Giant Platelets Not Reportable 06/27/18 04:53 Platelet Satelliting Not Reportable 06/27/18 04:53 Plt Morphology Comment Not Reportable 06/27/18 04:53 RBC Morphology Not Reportable 06/27/18 04:53 Dimorphic RBCs Not Reportable 06/27/18 04:53 Polychromasia Not Reportable 06/27/18 04:53 Hypochromasia Not Reportable 06/27/18 04:53 Poikilocytosis Few 06/27/18 04:53 Anisocytosis 1+ 06/27/18 04:53 Microcytosis Not Reportable 06/27/18 04:53 Macrocytosis 1+ 06/27/18 04:53 Spherocytes Not Reportable 06/27/18 04:53 Pappenheimer Bodies Not Reportable 06/27/18 04:53 Sickle Cells Not Reportable 06/27/18 04:53 Target Cells Few 06/27/18 04:53 Tear Drop Cells Not Reportable 06/27/18 04:53 Ovalocytes Not Reportable 06/27/18 04:53 Helmet Cells Not Reportable 06/27/18 04:53 [place] Bodies Not Reportable 06/27/18 04:53 [place] Rings Not Reportable 06/27/18 04:53 [place] Cells Not Reportable 06/27/18 04:53 Bite Cells Not Reportable 06/27/18 04:53 Crenated Cell Not Reportable 06/27/18 04:53 Elliptocytes Not Reportable 06/27/18 04:53 Acanthocytes (Spur) Not Reportable 06/27/18 04:53 Rouleaux Not Reportable 06/27/18 04:53 Hemoglobin C Crystals Not Reportable 06/27/18 04:53 Schistocytes Rare 06/27/18 04:53 Malaria parasites Not Reportable 06/27/18 04:53 Tristen Bodies Not Reportable 06/27/18 04:53 Hem Pathologist Commnt No 06/27/18 04:53 PT 25.6 Sec. (12.2-14.9) H 06/28/18 05:10 INR 2.16 (0.87-1.13) H 06/28/18 05:10 APTT 71.9 Sec. (24.2-36.6) H* 06/22/18 01:02 D-Dimer 1064.09 ng/mlDDU (0-234) H 06/22/18 01:02 POC ABG pH 7.438 (7.35-7.45) 06/26/18 08:20 POC ABG pO2 190 (80-105) H 06/26/18 08:20 POC ABG HCO3 16.4 (22-26 mml/L) 06/26/18 08:20 POC ABG Total CO2 17 (23-27mmol/L) 06/26/18 08:20 POC ABG O2 Sat 100 06/26/18 08:20 POC ABG Base Excess -8 ((-2) - (+3)mmol/L) 06/26/18 08:20 FiO2 50 % 06/26/18 08:20 Sodium 147 mmol/L (137-145) H 06/28/18 05:10 Potassium 2.8 mmol/L (3.6-5.0) L* D 06/28/18 05:10 Chloride 122.8 mmol/L (98-107) H 06/28/18 05:10 Carbon Dioxide 16 mmol/L (22-30) L 06/28/18 05:10 Anion Gap 11 mmol/L 06/28/18 05:10 BUN 18 mg/dL (9-20) 06/28/18 05:10 Creatinine < 0.2 mg/dL (0.8-1.5) L 06/28/18 05:10 Estimated GFR > 60 ml/min 06/28/18 05:10 BUN/Creatinine Ratio 90 % 06/28/18 05:10 Glucose 86 mg/dL (75-100) 06/28/18 05:10 POC Glucose 102 (70-105) 06/26/18 08:06 Lactic Acid 1.40 mmol/L (0.7-2.0) 06/23/18 05:27 Calcium 7.5 mg/dL (8.4-10.2) L 06/28/18 05:10 Phosphorus 1.00 mg/dL (2.5-4.5) L 06/26/18 10:10 Magnesium 1.90 mg/dL (1.7-2.3) 06/26/18 10:10 Total Bilirubin 29.60 mg/dL (0.1-1.2) H 06/28/18 05:10 Direct Bilirubin 4.5 mg/dL (0-0.2) H 06/22/18 07:22 Indirect Bilirubin 18.0 mg/dL 06/22/18 07:22 AST 228 units/L (5-40) H 06/28/18 05:10 ALT 46 units/L (7-56) 06/28/18 05:10 Alkaline Phosphatase 282 units/L (35-129) H 06/28/18 05:10 Ammonia 47.0 umol/L (25-60) 06/26/18 08:11 Troponin T < 0.010 ng/mL (0.00-0.029) 06/26/18 08:13 NT-Pro-B Natriuret Pep 389.9 pg/mL (0-900) 06/26/18 10:10 Total Protein 4.9 g/dL (6.3-8.2) L 06/28/18 05:10 Albumin 1.9 g/dL (3.9-5) L 06/28/18 05:10 Albumin/Globulin Ratio 0.6 % 06/28/18 05:10 Lipase 99 units/L (13-60) H 06/22/18 01:02 Plasma/Serum Alcohol 0.11 % (0-0.07) H 06/22/18 02:57 Hepatitis A IgM Ab Non-reactive (NonReactive) 06/26/18 16:47 Hep Bs Antigen Non-reactive (Negative) 06/26/18 16:47 Hep B Core IgM Ab Non-reactive (NonReactive) 06/26/18 16:47 Hepatitis C Antibody Non-reactive (NonReactive) 06/26/18 16:47 Active Medications - Current Medications Current Medications: Generic Name Dose Route Start Last Admin Trade Name Freq PRN Reason Stop Dose Admin Vancomycin HCl 1,500 mg/ 530 mls @ 333.333 mls/hr 06/27/18 06:00 06/28/18 06:01 Sodium Chloride IV 333.333 mls/hr Q12H BRISEYDA Administration Cefepime HCl 2 gm in 100 mls @ 200 mls/hr 06/27/18 16:00 06/28/18 08:59 Maxipime/Ns 2 Gm/100 Ml IV 200 mls/hr Q8H BRISEYDA Administration Dextrose 1,000 mls @ 100 mls/hr 06/27/18 13:00 06/28/18 04:18 D5w IV 100 mls/hr DIRECT BRISEYDA Administration Potassium Chloride 10 meq in 100 mls @ 100 mls/hr 06/28/18 13:00 Kcl 10meq/100ml IV 06/28/18 14:59 Q1H BRISEYDA Lactulose 20 gm 06/25/18 14:00 06/28/18 06:03 Cephulac PO 20 gm Q8HR BRISEYDA Administration Lorazepam 2 mg 06/22/18 11:03 06/26/18 06:40 Ativan IV 2 mg Q1HR PRN Administration CIWA-Ar 8-15 Lorazepam 4 mg 06/22/18 11:03 06/25/18 00:24 Ativan IV 2 mg Q15MIN PRN Administration CIWA-Ar >25 Morphine Sulfate 1 mg 06/22/18 18:02 Morphine IV Q6H PRN Pain, Moderate (4-6) Multivitamins 1 each 06/23/18 10:00 06/28/18 11:26 Theragran Tab PO 1 each QDAY BRISEYDA Administration Ondansetron HCl 4 mg 06/22/18 03:10 Zofran IV Q8H PRN Nausea And Vomiting Pentoxifylline 400 mg 06/24/18 22:00 06/28/18 11:26 Trental PO 400 mg Q12HR BRISEYDA Administration Rifaximin 550 mg 06/22/18 22:00 06/28/18 11:26 Xifaxan PO 550 mg BID BRISEYDA Administration Sodium Bicarbonate 1,300 mg 06/24/18 14:00 06/28/18 09:01 Sodium Bicarbonate PO 1,300 mg TID BRISEYDA Administration Nutrition/Malnutrition Assess - Dietary Evaluation Nutrition/Malnutrition Findings: Nutrition Notes Start: 06/23/18 14:11 Freq: Status: Active Protocol: Document 06/25/18 11:23 TW (Rec: 06/25/18 11:31 TW [id number]) Co-Sign 06/25/18 11:23 LP Nutrition Notes Initial or Follow up Reassessment Current Diagnosis Acute Kidney Injury, Hypertension Other Pertinent Diagnosis seizures, wounds, AMS, Etoh related liver disease Current Diet CHO consistent Labs/Tests K 3.3 BG 110 Pertinent Medications reviewed Height 5 ft 6 in Weight 108.86 kg Addis Body Weight (kg) 64.54 BMI 38.7 Subjective/Other Information F/U for intakes/ diet advancement. Noted diet advanced to CHO consistent but no sign of DM. Tech in room feeding pt. Tech reports pt eats 100% of meals and tolerates well. Percent of energy/protein needs met: 100%/100% Burn Absent Trauma Absent GI Symptoms None Food Allergy No Current % PO Good (75-100%) Minimum of two criteria No #1 Nutrition Diagnosis Inadequate oral intake As Evidenced by Signs and Symptoms pt eating 100% of meals Diagnosis Progress(for reassessment Resolved documentation) Is patient on ventilator? No Is Patient Ambulatory and/or Out of Bed No REE-([facility]-confined to bed) 2208.168 Kcal/Kg value to use for calculation 16 Approximate Energy Requirements Using 1742 kcal/Kg Calculation Used for Recommendations Kcal/kg Additional Notes AdjBW: 86.72kg pro: 69-87g/day (0.8-1g/kg) fluid: 1mL/kcal Nutrition Intervention Change Diet Order: Change to cardiac diet Goal #1 Continue to meet at least 75% of kcal and pro needs Anticipated Discharge Needs: Unable to determine at this time Revisit per MD consult or patient Sign Off request:
--- NOTE | 2018-06-28 14:00 | Gastroenterology Progress Note ---
Assessment and Plan 1.elevated LFTs 2.jaundice 3.acute liver failure: due to alcoholic hepatitis in the setting of underlying cirrhosis. 4.ETOH abuse - continues to be confused but less lethargic. - HD stable and afebrile. - in terms of labs, wbc trending upwards again today. AST/ALT/Alk phos and bilirubin still elevated. T bili slightly trending upwards. INR at 2. - on trental for alcoholic hepatitis. steroids not started due to chronic leg wound and concern for infection/sepsis. - Reviewed MRCP results showing no biliary ductal dilation to suggest for cholangitis. -DF >30-continue trental (would prefer steroids but contraindicated with current sepsis) -continue lactulose, xifaxan, and MVI - recommend placing a dobb ness tube for feeding. Nutrition consult -antibiotics per ID recommendations -continue to trend labs and supportive care -alcohol cessation-METHODIST JENNIE EDMUNDSON protocol -electrolyte management per primary team -patient with poor prognosis and currently considering hospice or DNR status but no decision has been made at this time -will follow 4.sepsis 5.chronic RLE wound -culture +moderate gram negative rods - Patient Problems (1) Acute alcoholic hepatitis Current Visit: Yes Status: Acute (2) Hepatic encephalopathy Current Visit: Yes Status: Acute (3) Hyperbilirubinemia Current Visit: Yes Status: Acute Subjective Date of service: 06/28/18 Principal diagnosis: jaundice, alcoholic liver disease Interval history: No acute events o/n. Patient less lethargic but still confused and not able to follow direction Objective - Constitutional Vitals: Temp Pulse Resp BP Pulse Ox 98.0 F 102 H 40 H 132/93 97 06/28/18 11:51 06/28/18 11:51 06/28/18 11:51 06/28/18 11:51 06/28/18 11:51 General appearance: no acute distress - EENT ENT: hearing intact, clear oral mucosa - Respiratory Respiratory effort: normal Respiratory: bilateral: CTA - Cardiovascular Rhythm: regular - Extremities Extremities: No edema - Gastrointestinal General gastrointestinal: Present: soft, non-tender, non-distended, normal bowel sounds - Integumentary Integumentary: Present: clear, warm, dry - Neurologic Neurological: disoriented, other (Not able to follow commands) - Labs CBC & Chem 7: 06/28/18 05:10 06/28/18 05:10 Labs: Laboratory Results - last 24 hr 06/28/18 06/28/18 06/28/18 05:10 05:10 05:10 WBC 31.9 H RBC 2.97 L Hgb 10.3 L Hct 30.5 L MCV 103 H MCH 35 H MCHC 34 RDW 22.9 H Plt Count 48 L PT 25.6 H INR 2.16 H Sodium 147 H Potassium 2.8 L* D Chloride 122.8 H Carbon Dioxide 16 L Anion Gap 11 BUN 18 Creatinine < 0.2 L Estimated GFR > 60 BUN/Creatinine Ratio 90 Glucose 86 Calcium 7.5 L Total Bilirubin 29.60 H AST 228 H ALT 46 Alkaline Phosphatase 282 H Total Protein 4.9 L Albumin 1.9 L Albumin/Globulin Ratio 0.6
--- NOTE | 2018-06-28 14:45 | Progress Note ---
Assessment and Plan - Patient Problems (1) Metabolic acidosis Current Visit: Yes Status: Acute Plan to address problem: Metabolic acidosis Will increase to 1950 mg sodium bicarbonate 3 times a day as tolerated (2) Alcoholic liver disease Current Visit: Yes Status: Acute Plan to address problem: Decompensated Alcoholic liver disease markedly elevated bilirubin , icteric on exam, distended abdomen Trend LFTs GI following (3) Syncope Current Visit: Yes Status: Acute Qualifiers: Syncope type: vasovagal syncope Qualified Code(s): R55 - Syncope and collapse Plan to address problem: syncope : - fall precautions. (4) Transaminitis Current Visit: Yes Status: Acute Plan to address problem: Transaminitis 2/2 alcoholic liver disease - avoid hepatotoxic meds. (5) Hypernatremia Current Visit: Yes Status: Acute Plan to address problem: Hypernatremia : worsening 2/2 impaired free water access Continue D5W. Recheck RFP. (6) Hypokalemia Current Visit: Yes Status: Acute Plan to address problem: Hypokalemia Has received 40 mg by mouth by mouth will give additional 20 mEq IV Recheck potassium and magnesium Subjective Principal diagnosis: jaundice, alcoholic liver disease Interval history: 59-year-old gentleman with medical history significant for hypertension and alcohol abuse admitted following syncope found to have acute kidney injury which has since resolved He remains confused Has abdominal distention with jaundice Review of systems Limited by patient clinical status Objective - Vital Signs Vital signs: Vital Signs - 12hr 06/28/18 06/28/18 05:37 11:51 Temperature 98.4 F 98.0 F Pulse Rate 102 H Respiratory 36 H 40 H Rate Blood Pressure 126/91 132/93 O2 Sat by Pulse 97 Oximetry - General Appearance General appearance: obese EENT: ATNC, PERRL, mucous membranes dry, sclera incterus Neck: no JVD Respiratory: Present: Using Accesory Muscles, Increased Expir. Phase Cardiology: regular, S1S2 Gastrointestinal: distended Integumentary: no rash, chronic venous stasis Neurologic: confused, CN 3-12 intact Psychiatric: depressed - Lab 06/28/18 05:10 06/28/18 05:10 Most recent lab results Calcium 7.5 mg/dL (8.4-10.2) L 06/28/18 05:10 Phosphorus 1.00 mg/dL (2.5-4.5) L 06/26/18 10:10 Magnesium 1.90 mg/dL (1.7-2.3) 06/26/18 10:10 Medications & Allergies - Medications Allergies/Adverse Reactions: Allergies No Known Allergies Allergy (Verified 02/22/16 11:50) Home Medications: Home Medications Medication Instructions Recorded Confirmed Last Taken Type Folic Acid [Folvite] 1 mg PO QDAY #30 tablet 09/19/17 06/25/18 Unknown Rx Multivitamin Tab [Multiple Vitamin 1 each PO QDAY #30 tablet 09/19/17 06/25/18 Unknown Rx TAB (Theragran)] Thiamine [Vitamin B-1] 100 mg PO QDAY #30 tablet 09/19/17 06/25/18 Unknown Rx hydrALAZINE [Apresoline TAB] 25 mg PO Q8HR #90 tablet 09/19/17 06/25/18 Unknown Rx Active Medications: Generic Name Dose Route Start Last Admin Trade Name Freq PRN Reason Stop Dose Admin Vancomycin HCl 1,500 mg/ 530 mls @ 333.333 mls/hr 06/27/18 06:00 06/28/18 06:01 Sodium Chloride IV 333.333 mls/hr Q12H BRISEYDA Administration Cefepime HCl 2 gm in 100 mls @ 200 mls/hr 06/27/18 16:00 06/28/18 08:59 Maxipime/Ns 2 Gm/100 Ml IV 200 mls/hr Q8H BRISEYDA Administration Dextrose 1,000 mls @ 100 mls/hr 06/27/18 13:00 06/28/18 14:23 D5w IV 100 mls/hr DIRECT BRISEYDA Administration Potassium Chloride 10 meq in 100 mls @ 100 mls/hr 06/28/18 13:00 06/28/18 14:29 Kcl 10meq/100ml IV 06/28/18 14:59 100 mls/hr Q1H BRISEYDA Administration Lactulose 20 gm 06/25/18 14:00 06/28/18 14:16 Cephulac PO 20 gm Q8HR BRISEYDA Administration Lorazepam 2 mg 06/22/18 11:03 06/26/18 06:40 Ativan IV 2 mg Q1HR PRN Administration CIWA-Ar 8-15 Lorazepam 4 mg 06/22/18 11:03 06/25/18 00:24 Ativan IV 2 mg Q15MIN PRN Administration CIWA-Ar >25 Morphine Sulfate 1 mg 06/22/18 18:02 Morphine IV Q6H PRN Pain, Moderate (4-6) Multivitamins 1 each 06/23/18 10:00 06/28/18 11:26 Theragran Tab PO 1 each QDAY BRISEYDA Administration Ondansetron HCl 4 mg 06/22/18 03:10 Zofran IV Q8H PRN Nausea And Vomiting Pentoxifylline 400 mg 06/24/18 22:00 06/28/18 11:26 Trental PO 400 mg Q12HR BRISEYDA Administration Rifaximin 550 mg 06/22/18 22:00 06/28/18 11:26 Xifaxan PO 550 mg BID BRISEYDA Administration Sodium Bicarbonate 1,300 mg 06/24/18 14:00 06/28/18 14:16 Sodium Bicarbonate PO 1,300 mg TID BRISEYDA Administration
--- NOTE | 2018-06-28 16:33 | XRay Report ---
PROCEDURE: XR ABDOMEN 1V AP TECHNIQUE: Frontal view of the abdomen HISTORY: Dobhoff placement COMPARISONS: None FINDINGS: The tip of the Dobbhoff catheter is projected in the region of the stomach. The bowel gas pattern is nonspecific with air and mildly distended loops of bowel in the visualized p ortion of the abdomen and pelvis. IMPRESSION: 1. Tip of Dobbhoff catheter projected in the region of the stomach. This document is electronically signed by Cheryle Dia MD., June 28 2018 04:31:58 PM ET
[2018-06-28] MEDS: ORAPRED PO SCH (20:17)
[2018-06-29] MEDS: D5W 1,000 ML IV SCH (02:26)
[2018-06-29] MEDS: MAXIPIME/NS 2 GM/100 ML 2 GM/100 ML BAG IV SCH ×2 (02:43→12:05)
[2018-06-29 05:37] LABS: INR 2.35 (0.87-1.13)
[2018-06-29 05:49] LABS: Alanine Aminotransferase 45 units/L (7-56); Albumin 1.8 g/dL (3.9-5); BUN/Creatinine Ratio 77; Blood Urea Nitrogen 23 mg/dL (9-20); Calcium 7.7 mg/dL (8.4-10.2); Hemolysis Index 0
[2018-06-29] MEDS: CEPHULAC PO SCH ×3 (05:59→21:22)
[2018-06-29] MEDS: VANCOMYCIN 1,500 MG in NACL 0.9% 500 ML 500 ML IV SCH (05:59)
[2018-06-29] MEDS ORDERED: VANCOMYCIN PHARMACY TO DOSE IV SCH (09:00)
--- NOTE | 2018-06-29 09:08 | XRay Report ---
AP ABDOMEN: HISTORY: Feeding tube placement. The feeding tube has been advanced to the duodenal bulb since 06/28/18 at 1607 hrs. The abdominal gas pattern is unremarkable. No masses or organomegaly is identified and there is no gross evidence of free air or fluid. No significant soft tissue calcifications are noted. IMPRESSION: Unremarkable abdomen. Feeding tube as described.
--- NOTE | 2018-06-29 09:27 | Progress Note ---
Assessment and Plan Cultures: Blood culture 06/22/2018 no growth today. Wound culture 06/22/2018 Proteus, E faecalis, E coli Assessment: 59 yo man with a history of severe EtOH abuse, previous DTs, previous ETOH-asso ciated seizure; admitted on 06/22/2018 due to 24 hour of altered mental status and syncope: 1) Sepsis: Improved, no fevers. Leukocytosis most likely related to steroids. Etiology most likely severe ETOH hepatitis +/- cholangitis +/- right leg wound infection. UA neg. CXR NO obvious infiltrates. 2) Severe EOTH hepatitis with acute liver failure and cholangitis. US showed coarsely echogenic hepatic parenchyma consistent with fatty infiltration. Distended gallbladder with questionable trace pericholecystic fluid. No gallstones visualized. Dilatation of the common bile duct measuring approxi mately 1.1 cm. HAV, HBV, HCV- nonreactive. 3) Hepatic encephalopathy; CT of the head is within normal limits. 4) Chronic right leg wound ? infected v/s colonized. Wound culture 06/22/2018 Proteus, E faecalis, E coli. 5) Renal failure: renally adjusted abx Recommendations: - follow-up blood cultures, urine culture - Clinically stable, discontinue antibiotics -Monitor off antibiotics Linnea Lopez NP [facility] M: [id number] O:[phone] Subjective Date of service: 06/29/18 Principal diagnosis: jaundice, alcoholic liver disease Interval history: Patiente seen and examined. No acute distress observed. Follow simple commands. Brother at bedside. Objective - Exam Narrative Exam: General appearance: somnolent in NAD, No acute distress Eyes: +marked icteric sclerae, moist conjunctivae; no lid-lag; PERRLA HENT: Atraumatic; oropharynx limited Neck: Trachea midline; supple, no thyromegaly or lymphadenopathy Lungs: CTA, with normal respiratory effort and no intercostal retractions CV: tachy Abdomen: Soft, obese soft Extremities: No peripheral edema or extremity lymphadenopathy Skin: Normal temperature, turgor and texture; no rash, ulcers or subcutaneous nodules Psych: no agitated Neuro: somnolent non verbal - Constitutional Vitals: Vital Signs Temp Pulse Resp BP Pulse Ox 98.0 F 100 H 32 H 126/88 98 06/29/18 05:19 06/29/18 05:19 06/29/18 05:19 06/29/18 05:19 06/29/18 05:19 Temperature -Last 24 Hours Temperature 98.0 F Temperature 98.4 F Temperature 98.0 F Temperature 98.0 F - Labs CBC & Chem 7: 06/29/18 10:43 06/29/18 04:41 Labs: Abnormal lab results 06/29/18 06/29/18 06/29/18 Range/Units 04:41 04:41 04:41 PT 27.3 H (12.2-14.9) Sec. INR 2.35 H (0.87-1.13) Potassium 3.2 L (3.6-5.0) mmol/L Chloride 117.3 H (98-107) mmol/L Carbon Dioxide 14 L (22-30) mmol/L BUN 23 H (9-20) mg/dL Creatinine 0.3 L D (0.8-1.5) mg/dL Glucose 128 H (75-100) mg/dL Calcium 7.7 L (8.4-10.2) mg/dL Total Bilirubin 29.20 H (0.1-1.2) mg/dL AST 219 H (5-40) units/L Alkaline Phosphatase 273 H (35-129) units/L Total Protein 4.8 L (6.3-8.2) g/dL Albumin 1.8 L (3.9-5) g/dL Vancomycin Trough 36.9 H (5.0-20.0) ug/mL
--- NOTE | 2018-06-29 09:46 | Progress Note ---
Assessment and Plan Impression * Metabolic acidosis * Hypernatremia * Hypokalemia * Alcoholic liver disease Recommendations * Add bicarbonate to IV fluid * Continue oral bicarbonate replacement as well * Avoid nephrotoxins * Monitor fluid status and electrolytes closely Subjective Date of service: 06/29/18 Principal diagnosis: jaundice, alcoholic liver disease Interval history: Patient continues to have some diarrhea. Dobbhoff tube is in place. Denies any shortness of breath. Objective - Vital Signs Vital signs: Vital Signs - 12hr 06/28/18 06/29/18 22:02 05:19 Temperature 98.4 F 98.0 F Pulse Rate 100 H Respiratory 32 H 32 H Rate Blood Pressure 130/95 126/88 O2 Sat by Pulse 98 Oximetry - General Appearance General appearance: well-developed, well-nourished, appears stated age EENT: ATNC, other (Dobbhoff tube in place) Neck: no JVD, no thyromegaly, no carotid bruit, supple Respiratory: Present: Clear to Ascultation Cardiology: regular, normal heart rate, S1S2, no murmurs Gastrointestinal: normal, normoactive bowel sounds Integumentary: other (no edema) - Lab 06/28/18 05:10 06/29/18 04:41 Most recent lab results Calcium 7.7 mg/dL (8.4-10.2) L 06/29/18 04:41 Phosphorus 1.00 mg/dL (2.5-4.5) L 06/26/18 10:10 Magnesium 1.90 mg/dL (1.7-2.3) 06/26/18 10:10 Medications & Allergies - Medications Allergies/Adverse Reactions: Allergies No Known Allergies Allergy (Verified 02/22/16 11:50) Home Medications: Home Medications Medication Instructions Recorded Confirmed Last Taken Type Folic Acid [Folvite] 1 mg PO QDAY #30 tablet 09/19/17 06/25/18 Unknown Rx Multivitamin Tab [Multiple Vitamin 1 each PO QDAY #30 tablet 09/19/17 06/25/18 Unknown Rx TAB (Theragran)] Thiamine [Vitamin B-1] 100 mg PO QDAY #30 tablet 09/19/17 06/25/18 Unknown Rx hydrALAZINE [Apresoline TAB] 25 mg PO Q8HR #90 tablet 09/19/17 06/25/18 Unknown Rx Active Medications: Generic Name Dose Route Start Last Admin Trade Name Freq PRN Reason Stop Dose Admin Dextrose 1,000 mls @ 100 mls/hr 06/27/18 13:00 06/29/18 02:26 D5w IV 100 mls/hr DIRECT BRISEYDA Administration Cefepime HCl 2 gm in 100 mls @ 200 mls/hr 06/29/18 10:00 06/29/18 09:06 Maxipime/Ns 2 Gm/100 Ml IV 200 mls/hr Q12HR BRISEYDA Administration Lactulose 20 gm 06/25/18 14:00 06/29/18 05:59 Cephulac PO 20 gm Q8HR BRISEYDA Administration Lorazepam 2 mg 06/22/18 11:03 06/26/18 06:40 Ativan IV 2 mg Q1HR PRN Administration CIWA-Ar 8-15 Lorazepam 4 mg 06/22/18 11:03 06/25/18 00:24 Ativan IV 2 mg Q15MIN PRN Administration CIWA-Ar >25 Morphine Sulfate 1 mg 06/22/18 18:02 Morphine IV Q6H PRN Pain, Moderate (4-6) Multivitamins 1 each 06/23/18 10:00 06/28/18 11:26 Theragran Tab PO 1 each QDAY BRISEYDA Administration Ondansetron HCl 4 mg 06/22/18 03:10 Zofran IV Q8H PRN Nausea And Vomiting Pentoxifylline 400 mg 06/24/18 22:00 06/28/18 21:45 Trental PO 400 mg Q12HR BRISEYDA Administration Prednisolone Sodium Phosphate 40 mg 06/28/18 17:00 06/28/18 20:17 Orapred PO 40 mg QDAY BRISEYDA Administration Rifaximin 550 mg 06/22/18 22:00 06/28/18 21:46 Xifaxan PO 550 mg BID BRISEYDA Administration Sodium Bicarbonate 1,950 mg 06/28/18 15:00 06/28/18 21:03 Sodium Bicarbonate PO 1,950 mg TID BRISEYDA Administration
[2018-06-29] MEDS ORDERED: MAXIPIME/NS 2 GM/100 ML 2 GM/100 ML BAG IV SCH (10:00)
[2018-06-29] MEDS: SODIUM BICARBONATE 75 MEQ in D5W 1,000 ML IV SCH (11:00)
[2018-06-29 11:16] LABS: Hematocrit 29.6 % (35.5-45.6); Mean Corpuscular HGB Conc 34 % (32-34); Mean Corpuscular Volume 104 fl (84-94); Red Blood Count 2.85 M/mm3 (3.65-5.03)
[2018-06-29 11:21] LABS: Red Cell Distribution Width 23.7 % (13.2-15.2)
[2018-06-29 12:09] LABS: Basophils % (Manual) 0 % (0.0-1.8); Eosinophils % (Manual) 0 % (0.0-4.3); Total Cells Counted 100
[2018-06-29 12:13] LABS: Anisocytosis 1+; Macrocytosis 1+; Platelet Estimate Consistent w Auto; Poikilocytosis 1+; Target Cells Few
[2018-06-29 12:14] LABS: Platelet Count 52 K/mm3 (140-440)
--- NOTE | 2018-06-29 12:36 | Progress Note ---
Assessment and Plan Assessment and plan: Patient is a 59 yo man with a history of Alcohol abuse admitted with altered mental status. According to ED documentation, the fiance of the patient called paramedics because the patient had possible syncopal episode while in the shower. EMS records are not currently in his physical chart for my review. Patient was admitted for suspected cholangitis, liver failure, sepsis from right leg infection and syncope. * CT of the head is within normal limits. * Chest x-ray shows that the patient did not take adequate breath however there is no obvious infiltrates. X-ray of the L-spine per my interpretation shows that the patient does have significant degenerative disease however there is no acute fracture * XR Spine lumbosacral: Stable prominent Schmorl's deformities and multilevel compression deformities at the T12-L3 levels. * US abdomen: IMPRESSION: Coarsely echogenic hepatic parenchyma consistent with fatty infiltration. Distended gallbladder with questionable trace pericholecystic fluid. No gallstones visualized. Dilatation of the common bile duct measuring approximately 1.1 cm. Distal obstructive process must be suspected. Further evaluation with CT and or correlation with MRCP should be c onsidered. If acute cholecystitis is clinically suspected, correlation with HIDA scan may be helpful.. * V/Q scan: No PE * MRCP IMPRESSION: Distended gallbladder. There is some fluid around the gallbla dder. Although gallstones are not seen, cholecystitis is not excluded The common duct is not dilated. No evidence of choledocholithiasis is seen. -Acute hypoxic respiratory failure with CODE MET on Friday06/26/18 because pulse ox dropped to 55% on RA: treat with O2, . -Acute Liver failure, poor prognosis, hospice discussion started yesterday, [facility] declined hospice, NOK is brother Delano -Suspected Cholangitis: GI is following -Acute Hepatic Encephalopathy -Alcohol hepatitis of the Liver with suspect progression to Cirrhosis with coagulalopathy, hyperbilirubinemia, Thrombocytopenia, anemia: GI following, high DF but not on steroids due to sepsis from leg. -Anemia SECODNARY TO ETOH AND LIVER failure: GI is following -Possible Choledocholethasis with LFT abnormalities -Syncope possible vasovagal related to above: added telemetry -Dialated CBD with distended gall bladder: too ill for HIDA scan at present, GI is following -Severe sepsis with >2 SOFA criteria Met due to lateral elongated RLL leg ulcerated infection growing multiple species, at least stage 4, poa: GS is following, on ABX, consult ID -Acute Kidney Injury with vasomotor nephropathy; monitor bmp daily -Hyponatremia: monitor closely -Hypomagnesemia: monitor closely, add telemetry -ETOH INTOXICATION with BAL of 0.11 on admission, watch for withdrawal: CIWA ordered -Metabolic Acidosis -Lactic acidosis -Hypokalemia; replete via NGT monitor closely -Multilevel Compression deformities- T12-L3- No incontinence prognosis poor D/W Morgan Michael at bedside on Friday06/27/18 NOK is brother Delano NGT placed 06/28/18, mental status better today Full code History Interval history: Patient was seen and examined. Follow-up on current diagnosis Liver failure. Overnight uneventful. Patient denies any pains barely speaking. Imaging, nursing note, chart, labs and old chart reviewed. Code Met called due to hypoxia, pulse ox dropped to 55% on Room air, now on o2. Fernanda who is his stated "morgan" is at bedside. He is not . He is from [facility] Hospitalist Physical - Physical exam Narrative exam: GEN: critical ill , moderate accessory muscle, somnolent, orientated to name, hospital HEENT: NCAT, EOMI, PERRL, OP Clear NECK: supple, no adenopathy, no thyromegaly, no JVD CVS/HEART: RRR, normal S1S2, pulses present bilaterally CHEST/LUNGS: diminished, tachypneic, Symmetrical chest expansion, good air entry bilaterally GI/Abdomen: soft, NTND, good bowel sounds, no guarding or rebound /Bladder: no suprapubic tenderness, no CVA or paraspinal tenderness EXT/Skin: no c/c/e, no obvious rash MSK: FROM x 4 Neuro: CN 2-12 grossly intact, no new focal deficits Psych: calm - Constitutional Vitals: Temp Pulse Resp BP Pulse Ox 98.5 F 98 H 36 H 136/104 98 06/29/18 12:16 06/29/18 12:16 06/29/18 12:16 06/29/18 12:16 06/29/18 12:16 Results - Labs CBC & Chem 7: 06/29/18 10:43 06/29/18 04:41 Labs: Laboratory Last Values WBC 21.0 K/mm3 (4.5-11.0) H 06/29/18 10:43 RBC 2.85 M/mm3 (3.65-5.03) L 06/29/18 10:43 Hgb 10.0 gm/dl (11.8-15.2) L 06/29/18 10:43 Hct 29.6 % (35.5-45.6) L 06/29/18 10:43 MCV 104 fl (84-94) H 06/29/18 10:43 MCH 35 pg (28-32) H 06/29/18 10:43 MCHC 34 % (32-34) 06/29/18 10:43 RDW 23.7 % (13.2-15.2) H 06/29/18 10:43 Plt Count 52 K/mm3 (140-440) L 06/29/18 10:43 Add Manual Diff Complete 06/29/18 10:43 Total Counted 100 06/29/18 10:43 Seg Neuts % (Manual) 75.0 % (40.0-70.0) H 06/29/18 10:43 Band Neutrophils % 0 % 06/29/18 10:43 Lymphocytes % (Manual) 18.0 % (13.4-35.0) 06/29/18 10:43 Reactive Lymphs % (Man) 0 % 06/29/18 10:43 Monocytes % (Manual) 2.0 % (0.0-7.3) 06/29/18 10:43 Eosinophils % (Manual) 0 % (0.0-4.3) 06/29/18 10:43 Basophils % (Manual) 0 % (0.0-1.8) 06/29/18 10:43 Metamyelocytes % 1.0 % 06/29/18 10:43 Myelocytes % 4.0 % 06/29/18 10:43 Promyelocytes % 0 % 06/29/18 10:43 Blast Cells % 0 % 06/29/18 10:43 Nucleated RBC % 84.0 % (0.0-0.9) H 06/29/18 10:43 Seg Neutrophils # Man 0.0 K/mm3 (1.8-7.7) L 06/29/18 10:43 Band Neutrophils # 0.0 K/mm3 06/29/18 10:43 Lymphocytes # (Manual) 0.0 K/mm3 (1.2-5.4) L 06/29/18 10:43 Abs React Lymphs (Man) 0.0 K/mm3 06/29/18 10:43 Monocytes # (Manual) 0.0 K/mm3 (0.0-0.8) 06/29/18 10:43 Eosinophils # (Manual) 0.0 K/mm3 (0.0-0.4) 06/29/18 10:43 Basophils # (Manual) 0.0 K/mm3 (0.0-0.1) 06/29/18 10:43 Metamyelocytes # 0.0 K/mm3 06/29/18 10:43 Myelocytes # 0.0 K/mm3 06/29/18 10:43 Promyelocytes # 0.0 K/mm3 06/29/18 10:43 Blast Cells # 0.0 K/mm3 06/29/18 10:43 WBC Morphology Not Reportable 06/29/18 10:43 Hypersegmented Neuts Not Reportable 06/29/18 10:43 Hyposegmented Neuts Not Reportable 06/29/18 10:43 Hypogranular Neuts Not Reportable 06/29/18 10:43 Smudge Cells Not Reportable 06/29/18 10:43 Toxic Granulation Not Reportable 06/29/18 10:43 Toxic Vacuolation Not Reportable 06/29/18 10:43 Dohle Bodies Not Reportable 06/29/18 10:43 Pelger-Huet Anomaly Not Reportable 06/29/18 10:43 Elaine Rods Not Reportable 06/29/18 10:43 Platelet Estimate Consistent w auto 06/29/18 10:43 Clumped Platelets Not Reportable 06/29/18 10:43 Plt Clumps, EDTA Not Reportable 06/29/18 10:43 Large Platelets Not Reportable 06/29/18 10:43 Giant Platelets Not Reportable 06/29/18 10:43 Platelet Satelliting Not Reportable 06/29/18 10:43 Plt Morphology Comment Not Reportable 06/29/18 10:43 RBC Morphology Not Reportable 06/29/18 10:43 Dimorphic RBCs Not Reportable 06/29/18 10:43 Polychromasia Not Reportable 06/29/18 10:43 Hypochromasia Not Reportable 06/29/18 10:43 Poikilocytosis 1+ 06/29/18 10:43 Anisocytosis 1+ 06/29/18 10:43 Microcytosis Few 06/29/18 10:43 Macrocytosis 1+ 06/29/18 10:43 Spherocytes Not Reportable 06/29/18 10:43 Pappenheimer Bodies Not Reportable 06/29/18 10:43 Sickle Cells Not Reportable 06/29/18 10:43 Target Cells Few 06/29/18 10:43 Tear Drop Cells Not Reportable 06/29/18 10:43 Ovalocytes Not Reportable 06/29/18 10:43 Helmet Cells Not Reportable 06/29/18 10:43 Lara-Haivana Nakya Bodies Not Reportable 06/29/18 10:43 [place] Rings Not Reportable 06/29/18 10:43 [place] Cells Not Reportable 06/29/18 10:43 Bite Cells Not Reportable 06/29/18 10:43 Crenated Cell Not Reportable 06/29/18 10:43 Elliptocytes Not Reportable 06/29/18 10:43 Acanthocytes (Spur) Not Reportable 06/29/18 10:43 Rouleaux Not Reportable 06/29/18 10:43 Hemoglobin C Crystals Not Reportable 06/29/18 10:43 Schistocytes Not Reportable 06/29/18 10:43 Malaria parasites Not Reportable 06/29/18 10:43 Tristen Bodies Not Reportable 06/29/18 10:43 Hem Pathologist Commnt No 06/29/18 10:43 PT 27.3 Sec. (12.2-14.9) H 06/29/18 04:41 INR 2.35 (0.87-1.13) H 06/29/18 04:41 APTT 71.9 Sec. (24.2-36.6) H* 06/22/18 01:02 D-Dimer 1064.09 ng/mlDDU (0-234) H 06/22/18 01:02 POC ABG pH 7.438 (7.35-7.45) 06/26/18 08:20 POC ABG pO2 190 (80-105) H 06/26/18 08:20 POC ABG HCO3 16.4 (22-26 mml/L) 06/26/18 08:20 POC ABG Total CO2 17 (23-27mmol/L) 06/26/18 08:20 POC ABG O2 Sat 100 06/26/18 08:20 POC ABG Base Excess -8 ((-2) - (+3)mmol/L) 06/26/18 08:20 FiO2 50 % 06/26/18 08:20 Sodium 145 mmol/L (137-145) 06/29/18 04:41 Potassium 3.2 mmol/L (3.6-5.0) L 06/29/18 04:41 Chloride 117.3 mmol/L (98-107) H 06/29/18 04:41 Carbon Dioxide 14 mmol/L (22-30) L 06/29/18 04:41 Anion Gap 17 mmol/L 06/29/18 04:41 BUN 23 mg/dL (9-20) H 06/29/18 04:41 Creatinine 0.3 mg/dL (0.8-1.5) L D 06/29/18 04:41 Estimated GFR > 60 ml/min 06/29/18 04:41 BUN/Creatinine Ratio 77 % 06/29/18 04:41 Glucose 128 mg/dL (75-100) H 06/29/18 04:41 POC Glucose 102 (70-105) 06/26/18 08:06 Lactic Acid 1.40 mmol/L (0.7-2.0) 06/23/18 05:27 Calcium 7.7 mg/dL (8.4-10.2) L 06/29/18 04:41 Phosphorus 1.00 mg/dL (2.5-4.5) L 06/26/18 10:10 Magnesium 1.90 mg/dL (1.7-2.3) 06/26/18 10:10 Total Bilirubin 29.20 mg/dL (0.1-1.2) H 06/29/18 04:41 Direct Bilirubin 4.5 mg/dL (0-0.2) H 06/22/18 07:22 Indirect Bilirubin 18.0 mg/dL 06/22/18 07:22 AST 219 units/L (5-40) H 06/29/18 04:41 ALT 45 units/L (7-56) 06/29/18 04:41 Alkaline Phosphatase 273 units/L (35-129) H 06/29/18 04:41 Ammonia 47.0 umol/L (25-60) 06/26/18 08:11 Troponin T < 0.010 ng/mL (0.00-0.029) 06/26/18 08:13 NT-Pro-B Natriuret Pep 389.9 pg/mL (0-900) 06/26/18 10:10 Total Protein 4.8 g/dL (6.3-8.2) L 06/29/18 04:41 Albumin 1.8 g/dL (3.9-5) L 06/29/18 04:41 Albumin/Globulin Ratio 0.6 % 06/29/18 04:41 Lipase 99 units/L (13-60) H 06/22/18 01:02 Vancomycin Trough 36.9 ug/mL (5.0-20.0) H 06/29/18 04:41 Plasma/Serum Alcohol 0.11 % (0-0.07) H 06/22/18 02:57 Hepatitis A IgM Ab Non-reactive (NonReactive) 06/26/18 16:47 Hep Bs Antigen Non-reactive (Negative) 06/26/18 16:47 Hep B Core IgM Ab Non-reactive (NonReactive) 06/26/18 16:47 Hepatitis C Antibody Non-reactive (NonReactive) 06/26/18 16:47 Active Medications - Current Medications Current Medications: Generic Name Dose Route Start Last Admin Trade Name Freq PRN Reason Stop Dose Admin Cefepime HCl 2 gm in 100 mls @ 200 mls/hr 06/29/18 10:00 06/29/18 09:06 Maxipime/Ns 2 Gm/100 Ml IV 200 mls/hr Q12HR BRISEYDA Administration Sodium Bicarbonate 75 meq/ 1,075 mls @ 100 mls/hr 06/29/18 11:00 Dextrose IV DIRECT BRISEYDA Lactulose 20 gm 06/25/18 14:00 06/29/18 05:59 Cephulac PO 20 gm Q8HR BRISEYDA Administration Lorazepam 2 mg 06/22/18 11:03 06/26/18 06:40 Ativan IV 2 mg Q1HR PRN Administration CIWA-Ar 8-15 Lorazepam 4 mg 06/22/18 11:03 06/25/18 00:24 Ativan IV 2 mg Q15MIN PRN Administration CIWA-Ar >25 Morphine Sulfate 1 mg 06/22/18 18:02 Morphine IV Q6H PRN Pain, Moderate (4-6) Multivitamins 1 each 06/23/18 10:00 06/28/18 11:26 Theragran Tab PO 1 each QDAY BRISEYDA Administration Ondansetron HCl 4 mg 06/22/18 03:10 Zofran IV Q8H PRN Nausea And Vomiting Pentoxifylline 400 mg 06/24/18 22:00 06/28/18 21:45 Trental PO 400 mg Q12HR BRISEYDA Administration Prednisolone Sodium Phosphate 40 mg 06/28/18 17:00 06/28/18 20:17 Orapred PO 40 mg QDAY BRISEYDA Administration Rifaximin 550 mg 06/22/18 22:00 06/28/18 21:46 Xifaxan PO 550 mg BID BRISEYDA Administration Sodium Bicarbonate 1,950 mg 06/28/18 15:00 06/28/18 21:03 Sodium Bicarbonate PO 1,950 mg TID BRISEYDA Administration Nutrition/Malnutrition Assess - Dietary Evaluation Nutrition/Malnutrition Findings: Nutrition Notes Start: 06/23/18 14:11 Freq: Status: Active Protocol: Document 06/25/18 11:23 TW (Rec: 06/25/18 11:31 TW [id number]) Co-Sign 06/25/18 11:23 LP Nutrition Notes Initial or Follow up Reassessment Current Diagnosis Acute Kidney Injury, Hypertension Other Pertinent Diagnosis seizures, wounds, AMS, Etoh related liver disease Current Diet CHO consistent Labs/Tests K 3.3 BG 110 Pertinent Medications reviewed Height 5 ft 6 in Weight 108.86 kg [place] Body Weight (kg) 64.54 BMI 38.7 Subjective/Other Information F/U for intakes/ diet advancement. Noted diet advanced to CHO consistent but no sign of DM. Tech in room feeding pt. Tech reports pt eats 100% of meals and tolerates well. Percent of energy/protein needs met: 100%/100% Burn Absent Trauma Absent GI Symptoms None Food Allergy No Current % PO Good (75-100%) Minimum of two criteria No #1 Nutrition Diagnosis Inadequate oral intake As Evidenced by Signs and Symptoms pt eating 100% of meals Diagnosis Progress(for reassessment Resolved documentation) Is patient on ventilator? No Is Patient Ambulatory and/or Out of Bed No REE-(Crisp-St. Valderramaor-confined to bed) 2208.168 Kcal/Kg value to use for calculation 16 Approximate Energy Requirements Using 1742 kcal/Kg Calculation Used for Recommendations Kcal/kg Additional Notes AdjBW: 86.72kg pro: 69-87g/day (0.8-1g/kg) fluid: 1mL/kcal Nutrition Intervention Change Diet Order: Change to cardiac diet Goal #1 Continue to meet at least 75% of kcal and pro needs Anticipated Discharge Needs: Unable to determine at this time Revisit per MD consult or patient Sign Off request:
[2018-06-29] MEDS ORDERED: POTASSIUM CHLORIDE FEEDTUBE ONE (13:00)
[2018-06-29] MEDS: XIFAXAN PO SCH ×2 (13:58→21:22)
[2018-06-29] MEDS: ORAPRED PO SCH (13:59)
[2018-06-29] MEDS: THERAGRAN Tab PO SCH (13:59)
[2018-06-29] MEDS: SODIUM BICARBONATE PO SCH ×3 (13:59→21:22)
[2018-06-29] MEDS: TRENTAL PO SCH ×2 (13:59→21:22)
[2018-06-29] MEDS ORDERED: SODIUM BICARBONATE FEEDTUBE PRN (14:07)
[2018-06-29] MEDS ORDERED: SIMPLE SYRUP FEEDTUBE PRN ×2 (14:07)
[2018-06-29] MEDS ORDERED: PANCREAZE DR 10,500 UNIT FEEDTUBE PRN (14:07)
--- NOTE | 2018-06-29 14:37 | Gastroenterology Progress Note ---
Assessment and Plan 1.elevated LFTs 2.jaundice 3.acute liver failure: due to alcoholic hepatitis in the setting of underlying cirrhosis. 4.ETOH abuse 5. Alcoholic hepatitis. - LAYLA/AMA/ASMA/iron studies/HSV/CMV labs pending. - acute hepatitis panel negative. - continues to be confused but awakes to voice and touch. - HD stable and afebrile. - in terms of labs, wbc trending upwards again today. AST/ALT/Alk phos and bilirubin still elevated. T bili elevated at 29. INR at 2.35 - on trental for alcoholic hepatitis. - started on prednisolone 40 mg daily on 06/28/2018 for alcoholic hepatitis. DF >30. discussed with ID and ok to start steroids. BCx negative. - Reviewed MRCP results showing no biliary ductal dilation to suggest for cholangitis. - continue lactulose, xifaxan, and MVI. patient is having stools per nursing. - start tube feeds via a dobb ness tube. Nutrition consult - antibiotics per ID recommendations - continue to trend labs and supportive care - alcohol cessation-[facility] protocol - electrolyte management per primary team - patient with poor prognosis and currently considering hospice or DNR status but no decision has been made at this time - will follow 4.sepsis 5.chronic RLE wound -culture +moderate gram negative rods - Patient Problems (1) Acute alcoholic hepatitis Current Visit: Yes Status: Acute (2) Hepatic encephalopathy Current Visit: Yes Status: Acute (3) Hyperbilirubinemia Current Visit: Yes Status: Acute Subjective Date of service: 06/29/18 Principal diagnosis: jaundice, alcoholic liver disease Interval history: Patient had dobbhoff tube placed yesterday but has not started on tube feeds yet. No abdominal pain. Objective - Constitutional Vitals: Temp Pulse Resp BP Pulse Ox 98.5 F 98 H 36 H 136/104 98 06/29/18 12:16 06/29/18 12:16 06/29/18 12:16 06/29/18 12:16 06/29/18 12:16 General appearance: no acute distress - EENT Eyes: scleral icterus ENT: hearing intact, clear oral mucosa - Neck Neck: supple - Respiratory Respiratory effort: normal - Cardiovascular Rhythm: regular Heart Sounds: Present: S1 & S2 - Extremities Extremities: No edema - Gastrointestinal General gastrointestinal: Present: soft, non-tender, non-distended - Integumentary Integumentary: Present: clear, warm, dry - Neurologic Neurological: oriented to place - Labs CBC & Chem 7: 06/29/18 10:43 06/29/18 04:41 Labs: Laboratory Results - last 24 hr 06/29/18 06/29/18 06/29/18 04:41 04:41 04:41 WBC RBC Hgb Hct MCV MCH MCHC RDW Plt Count Add Manual Diff Total Counted Seg Neuts % (Manual) Band Neutrophils % Lymphocytes % (Manual) Reactive Lymphs % (Man) Monocytes % (Manual) Eosinophils % (Manual) Basophils % (Manual) Metamyelocytes % Myelocytes % Promyelocytes % Blast Cells % Nucleated RBC % Seg Neutrophils # Man Band Neutrophils # Lymphocytes # (Manual) Abs React Lymphs (Man) Monocytes # (Manual) Eosinophils # (Manual) Basophils # (Manual) Metamyelocytes # Myelocytes # Promyelocytes # Blast Cells # WBC Morphology Hypersegmented Neuts Hyposegmented Neuts Hypogranular Neuts Smudge Cells Toxic Granulation Toxic Vacuolation Dohle Bodies Pelger-Huet Anomaly Elaine Rods Platelet Estimate Clumped Platelets Plt Clumps, EDTA Large Platelets Giant Platelets Platelet Satelliting Plt Morphology Comment RBC Morphology Dimorphic RBCs Polychromasia Hypochromasia Poikilocytosis Anisocytosis Microcytosis Macrocytosis Spherocytes Pappenheimer Bodies Sickle Cells Target Cells Tear Drop Cells Ovalocytes Helmet Cells Lara-[place] Bodies [place] Rings Michel Cells Bite Cells Crenated Cell Elliptocytes Acanthocytes (Spur) Rouleaux Hemoglobin C Crystals Schistocytes Malaria parasites Tristen Bodies Hem Pathologist Commnt PT 27.3 H INR 2.35 H Sodium 145 Potassium 3.2 L Chloride 117.3 H Carbon Dioxide 14 L Anion Gap 17 BUN 23 H Creatinine 0.3 L D Estimated GFR > 60 BUN/Creatinine Ratio 77 Glucose 128 H Calcium 7.7 L Total Bilirubin 29.20 H AST 219 H ALT 45 Alkaline Phosphatase 273 H Total Protein 4.8 L Albumin 1.8 L Albumin/Globulin Ratio 0.6 Vancomycin Trough 36.9 H 06/29/18 10:43 WBC 21.0 H RBC 2.85 L Hgb 10.0 L Hct 29.6 L MCV 104 H MCH 35 H MCHC 34 RDW 23.7 H Plt Count 52 L Add Manual Diff Complete Total Counted 100 Seg Neuts % (Manual) 75.0 H Band Neutrophils % 0 Lymphocytes % (Manual) 18.0 Reactive Lymphs % (Man) 0 Monocytes % (Manual) 2.0 Eosinophils % (Manual) 0 Basophils % (Manual) 0 Metamyelocytes % 1.0 Myelocytes % 4.0 Promyelocytes % 0 Blast Cells % 0 Nucleated RBC % 84.0 H Seg Neutrophils # Man 0.0 L Band Neutrophils # 0.0 Lymphocytes # (Manual) 0.0 L Abs React Lymphs (Man) 0.0 Monocytes # (Manual) 0.0 Eosinophils # (Manual) 0.0 Basophils # (Manual) 0.0 Metamyelocytes # 0.0 Myelocytes # 0.0 Promyelocytes # 0.0 Blast Cells # 0.0 WBC Morphology Not Reportable Hypersegmented Neuts Not Reportable Hyposegmented Neuts Not Reportable Hypogranular Neuts Not Reportable Smudge Cells Not Reportable Toxic Granulation Not Reportable Toxic Vacuolation Not Reportable Dohle Bodies Not Reportable Pelger-Huet Anomaly Not Reportable Elaine Rods Not Reportable Platelet Estimate Consistent w auto Clumped Platelets Not Reportable Plt Clumps, EDTA Not Reportable Large Platelets Not Reportable Giant Platelets Not Reportable Platelet Satelliting Not Reportable Plt Morphology Comment Not Reportable RBC Morphology Not Reportable Dimorphic RBCs Not Reportable Polychromasia Not Reportable Hypochromasia Not Reportable Poikilocytosis 1+ Anisocytosis 1+ Microcytosis Few Macrocytosis 1+ Spherocytes Not Reportable Pappenheimer Bodies Not Reportable Sickle Cells Not Reportable Target Cells Few Tear Drop Cells Not Reportable Ovalocytes Not Reportable Helmet Cells Not Reportable Lara-[place] Bodies Not Reportable [place] Rings Not Reportable Michel Cells Not Reportable Bite Cells Not Reportable Crenated Cell Not Reportable Elliptocytes Not Reportable Acanthocytes (Spur) Not Reportable Rouleaux Not Reportable Hemoglobin C Crystals Not Reportable Schistocytes Not Reportable Malaria parasites Not Reportable Tristen Bodies Not Reportable Hem Pathologist Commnt No PT INR Sodium Potassium Chloride Carbon Dioxide Anion Gap BUN Creatinine Estimated GFR BUN/Creatinine Ratio Glucose Calcium Total Bilirubin AST ALT Alkaline Phosphatase Total Protein Albumin Albumin/Globulin Ratio Vancomycin Trough
[2018-06-29] MEDS ORDERED: MAGNESIUM SULFATE 2GM/50ML 2 GM/50 ML BAG IV ONE (17:53)
[2018-06-29 21:03] LABS: Creatine Kinase MB 4.4 ng/mL (0.0-4.0)
[2018-06-30] MEDS: ATIVAN IV PRN ×2 (00:58)
[2018-06-30] MEDS: SODIUM BICARBONATE 75 MEQ in D5W 1,000 ML IV SCH ×2 (03:29→17:21)
[2018-06-30] MEDS: CEPHULAC PO SCH ×3 (05:38→23:19)
--- NOTE | 2018-06-30 08:59 | Progress Note ---
Assessment and Plan Cultures: Blood culture 06/22/2018 no growth Wound culture 06/22/2018 Proteus, E faecalis, E coli Assessment: 59 yo man with a history of severe EtOH abuse, previous DTs, previous ETOH- associated seizure; admitted on 06/22/2018 due to 24 hour of altered mental status and syncope: 1) Sepsis: Improved, no fevers. Leukocytosis trending down most likely related to steroids. Etiology most likely severe ETOH hepatitis +/- cholangitis +/- right leg wound infection. UA neg. CXR NO obvious infiltrates. 2) Severe EOTH hepatitis with acute liver failure and cholangitis. US showed coarsely echogenic hepatic parenchyma consistent with fatty infiltration. Distended gallbladder with questionable trace pericholecystic fluid. No gallstones visualized. Dilatation of the common bile duct measuring a pproximately 1.1 cm. HAV, HBV, HCV- nonreactive. 3) Hepatic encephalopathy; CT of the head is within normal limits. 4) Chronic right leg wound ? infected v/s colonized. Wound culture 06/22/2018 P roteus, E faecalis, E coli. 5) Renal failure: renally adjusted abx Recommendations: -Monitor off antibiotics -Clinically stable, ID is signing off [facility] [employer] [facility] M: [phone] O:[phone] Subjective Date of service: 06/30/18 Principal diagnosis: jaundice, alcoholic liver disease Interval history: Patient seen and examined. Asleep, eyes open to verbal communication. No acute distress observed. No fevers Objective - Exam Narrative Exam: General appearance: somnolent in NAD, No acute distress Eyes: +marked icteric sclerae, moist conjunctivae; no lid-lag; PERRLA HENT: Atraumatic; oropharynx limited Neck: Trachea midline; supple, no thyromegaly or lymphadenopathy Lungs: CTA, with normal respiratory effort and no intercostal retractions CV: tachy Abdomen: Soft, obese soft Extremities: No peripheral edema or extremity lymphadenopathy Skin: Normal temperature, turgor and texture; no rash, ulcers or subcutaneous nodules Psych: no agitated Neuro: somnolent non verbal - Constitutional Vitals: Vital Signs Temp Pulse Resp BP Pulse Ox 98.5 F 109 H 24 136/99 97 06/30/18 06:11 06/30/18 06:11 06/30/18 06:11 06/30/18 06:11 06/30/18 08:15 Temperature -Last 24 Hours Temperature 98.5 F Temperature 98.3 F Temperature 97.5 F Temperature 98.3 F Temperature 98.5 F - Labs CBC & Chem 7: 06/30/18 09:32 06/30/18 09:32 Labs: Abnormal lab results 06/29/18 06/29/18 Range/Units 10:43 19:41 WBC 21.0 H (4.5-11.0) K/mm3 RBC 2.85 L (3.65-5.03) M/mm3 Hgb 10.0 L (11.8-15.2) gm/dl Hct 29.6 L (35.5-45.6) % MCV 104 H (84-94) fl MCH 35 H (28-32) pg RDW 23.7 H (13.2-15.2) % Plt Count 52 L (140-440) K/mm3 Seg Neuts % (Manual) 75.0 H (40.0-70.0) % Nucleated RBC % 84.0 H (0.0-0.9) % Seg Neutrophils # Man 0.0 L (1.8-7.7) K/mm3 Lymphocytes # (Manual) 0.0 L (1.2-5.4) K/mm3 CK-MB (CK-2) 4.4 H (0.0-4.0) ng/mL CK-MB (CK-2) Rel Index 5.1 H (0-4)
--- NOTE | 2018-06-30 09:00 | Progress Note ---
Assessment and Plan Impression * Metabolic acidosis * Hypernatremia * Hypokalemia * Alcoholic liver disease Recommendations * Today's chemistries are pending. * Continue bicarbonate in IV fluid * Continue oral bicarbonate replacement as well * Avoid nephrotoxins * Monitor fluid status and electrolytes closely Subjective Date of service: 06/30/18 Principal diagnosis: jaundice, alcoholic liver disease Interval history: Patient continues to have some diarrhea. Currently has a rectal tube in place. Dobbhoff tube is in place. Denies any shortness of breath. Objective - Vital Signs Vital signs: Vital Signs - 12hr 06/29/18 06/30/18 06/30/18 23:07 02:00 06:11 Temperature 98.3 F 98.5 F Pulse Rate 110 H 107 H 109 H Respiratory 22 24 Rate Blood Pressure 135/100 136/99 O2 Sat by Pulse 100 100 Oximetry 06/30/18 08:15 Temperature Pulse Rate Respiratory Rate Blood Pressure O2 Sat by Pulse 97 Oximetry - General Appearance General appearance: well-developed, well-nourished, appears stated age EENT: PERRL, mucous membranes moist Neck: no JVD, no thyromegaly, no carotid bruit, supple Respiratory: Present: Clear to Ascultation Cardiology: regular, normal heart rate, S1S2, no murmurs Gastrointestinal: normal, normoactive bowel sounds Integumentary: other (no edema) - Lab 06/29/18 10:43 06/29/18 04:41 Most recent lab results Calcium 7.7 mg/dL (8.4-10.2) L 06/29/18 04:41 Phosphorus 1.00 mg/dL (2.5-4.5) L 06/26/18 10:10 Magnesium 1.90 mg/dL (1.7-2.3) 06/26/18 10:10 Medications & Allergies - Medications Allergies/Adverse Reactions: Allergies No Known Allergies Allergy (Verified 02/22/16 11:50) Home Medications: Home Medications Medication Instructions Recorded Confirmed Last Taken Type Folic Acid [Folvite] 1 mg PO QDAY #30 tablet 09/19/17 06/25/18 Unknown Rx Multivitamin Tab [Multiple Vitamin 1 each PO QDAY #30 tablet 09/19/17 06/25/18 Unknown Rx TAB (Theragran)] Thiamine [Vitamin B-1] 100 mg PO QDAY #30 tablet 09/19/17 06/25/18 Unknown Rx hydrALAZINE [Apresoline TAB] 25 mg PO Q8HR #90 tablet 09/19/17 06/25/18 Unknown Rx Active Medications: Generic Name Dose Route Start Last Admin Trade Name Freq PRN Reason Stop Dose Admin Lipase/Protease/Amylase 1 each 06/29/18 14:07 Pancreaze 10,500 Unit FEEDTUBE PRN PRN For Clogged Feeding Tube Sodium Bicarbonate 75 meq/ 1,075 mls @ 100 mls/hr 06/29/18 11:00 06/30/18 03:29 Dextrose IV 100 mls/hr DIRECT BRISEYDA Administration Lactulose 20 gm 06/25/18 14:00 06/30/18 05:38 Cephulac PO 20 gm Q8HR BRISEYDA Administration Lorazepam 2 mg 06/22/18 11:03 06/30/18 00:58 Ativan IV 2 mg Q1HR PRN Administration CIWA-Ar 8-15 Lorazepam 4 mg 06/22/18 11:03 06/25/18 00:24 Ativan IV 2 mg Q15MIN PRN Administration CIWA-Ar >25 Morphine Sulfate 1 mg 06/22/18 18:02 Morphine IV Q6H PRN Pain, Moderate (4-6) Multivitamins 1 each 06/23/18 10:00 06/29/18 13:59 Theragran Tab PO 1 each QDAY BRISEYDA Administration Ondansetron HCl 4 mg 06/22/18 03:10 Zofran IV Q8H PRN Nausea And Vomiting Pentoxifylline 400 mg 06/24/18 22:00 06/29/18 21:22 Trental PO 400 mg Q12HR BRISEYDA Administration Prednisolone Sodium Phosphate 40 mg 06/28/18 17:00 06/29/18 13:59 Orapred PO 40 mg QDAY BRISEYDA Administration Rifaximin 550 mg 06/22/18 22:00 06/29/18 21:22 Xifaxan PO 550 mg BID BRISEYDA Administration Simple Syrup 15 ml 06/29/18 14:07 Simple Syrup FEEDTUBE PRN PRN Hypoglycemia Simple Syrup 30 ml 06/29/18 14:07 Simple Syrup FEEDTUBE PRN PRN Hypoglycemia Sodium Bicarbonate 1,950 mg 06/28/18 15:00 06/29/18 21:22 Sodium Bicarbonate PO 1,950 mg TID BRISEYDA Administration Sodium Bicarbonate 325 mg 06/29/18 14:07 Sodium Bicarbonate FEEDTUBE PRN PRN For Clogged Feeding Tube
[2018-06-30 09:52] LABS: Hemoglobin 10.4 gm/dl (11.8-15.2); Mean Corpuscular HGB Conc 34 % (32-34); Mean Corpuscular Volume 104 fl (84-94); Platelet Count 63 K/mm3 (140-440); Red Blood Count 2.99 M/mm3 (3.65-5.03); Red Cell Distribution Width 25.5 % (13.2-15.2)
[2018-06-30 10:04] LABS: INR 2.02 (0.87-1.13)
[2018-06-30] MEDS: ORAPRED PO SCH (10:10)
[2018-06-30] MEDS: XIFAXAN PO SCH ×2 (10:10→23:19)
[2018-06-30] MEDS: THERAGRAN Tab PO SCH (10:10)
[2018-06-30] MEDS: TRENTAL PO SCH ×2 (10:10→23:19)
[2018-06-30 10:14] LABS: Albumin 1.9 g/dL (3.9-5); BUN/Creatinine Ratio 160; Blood Urea Nitrogen 32 mg/dL (9-20); Calcium 7.8 mg/dL (8.4-10.2); Hemolysis Index 117
[2018-06-30] MEDS: SODIUM BICARBONATE PO SCH ×3 (10:18→23:18)
[2018-06-30 10:30] LABS: Alanine Aminotransferase 50 units/L (7-56)
[2018-06-30] MEDS ORDERED: K-DUR PO ONE (14:00)
[2018-06-30] MEDS: VITAMIN B-1 PO SCH (14:23)
[2018-06-30] MEDS: FOLVITE PO SCH (14:23)
[2018-06-30] MEDS ORDERED: POTASSIUM CHLORIDE FEEDTUBE NR (14:30)
--- NOTE | 2018-06-30 16:00 | Progress Note ---
Assessment and Plan Patient is a 59 yo man with a history of Alcohol abuse admitted with altered mental status. According to ED documentation, the fiance of the patient called paramedics because the patient had possible syncopal episode while in the shower. EMS records are not currently in his physical chart for my review. Patient was admitted for suspected cholangitis, liver failure, sepsis from right leg infection and syncope. * CT of the head is within normal limits. * Chest x-ray shows that the patient did not take adequate breath however there is no obvious infiltrates. X-ray of the L-spine per my interpretation shows that the patient does have significant degenerative disease however there is no acute fracture * XR Spine lumbosacral: Stable prominent Schmorl's deformities and multilevel compression deformities at the T12-L3 levels. * US abdomen: IMPRESSION: Coarsely echogenic hepatic parenchyma consistent with fatty infiltration. Distended gallbladder with questionable trace pericholecystic fluid. No gallstones visualized. Dilatation of the common bile duct measuring approximately 1.1 cm. Distal obstructive process must be suspected. Further evaluation with CT and or correlation with MRCP should be considered. If acute cholecystitis is clinically suspected, correlation with HIDA scan may be helpful.. * V/Q scan: No PE * MRCP IMPRESSION: Distended gallbladder. There is some fluid around the gallbladder. Although gallstones are not seen, cholecystitis is not excluded The common duct is not dilated. No evidence of choledocholithiasis is seen. -Acute hypoxic respiratory failure with CODE MET on Friday06/26/18 because pulse ox dropped to 55% on RA: treat with O2, . 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 -Anemia SECODNARY TO ETOH AND LIVER failure: GI is following -Possible Choledocholethasis with LFT abnormalities -Syncope possible vasovagal related to above: added telemetry -Dialated CBD with distended gall bladder: too ill for HIDA scan at present, GI is following -Severe sepsis with >2 SOFA criteria Met due to lateral elongated RLL leg ulcerated infection growing multiple species, at least stage 4, poa: GS is following, on ABX, consult ID -Acute Kidney Injury with vasomotor nephropathy; monitor bmp daily -Hyponatremia: monitor closely -Hypomagnesemia: monitor closely, add telemetry -ETOH INTOXICATION with BAL of 0.11 on admission, watch for withdrawal: CIWA ordered -Metabolic Acidosis -Lactic acidosis -Hypokalemia; replete via NGT monitor closely -Multilevel Compression deformities- T12-L3- No incontinence prognosis poor D/W Morgan Michael at bedside and also with brother Delano by phone Full code History Interval history: Patient was seen and examined. Follow-up on current diagnosis Liver failure. Ov ernight uneventful. Fernanda who is his stated "fiance" is at bedside - updated. Also discussed with brother by phone. Hospitalist Physical - Physical exam Narrative exam: GEN: critical ill , somnolent, orientated to name, hospital HEENT: NCAT, EOMI, PERRL, OP Clear NECK: supple, no adenopathy, no thyromegaly, no JVD CVS/HEART: RRR, normal S1S2, pulses present bilaterally CHEST/LUNGS: diminished, tachypneic, Symmetrical chest expansion, good air entry bilaterally GI/Abdomen: soft, NTND, good bowel sounds, no guarding or rebound /Bladder: no suprapubic tenderness, no CVA or paraspinal tenderness EXT/Skin: no c/c/e, no obvious rash MSK: FROM x 4 Neuro: CN 2-12 grossly intact, no new focal deficits Psych: calm Subjective Date of service: 06/30/18 Principal diagnosis: jaundice, alcoholic liver disease Objective - Constitutional Vitals: Vital Signs - 12hr 06/30/18 06/30/18 06/30/18 06:11 08:15 11:20 Temperature 98.5 F 99.5 F Pulse Rate 109 H 111 H Respiratory 24 22 Rate Blood Pressure 136/99 110/81 O2 Sat by Pulse 100 97 100 Oximetry - Labs CBC & Chem 7: 07/01/18 07:03 07/01/18 09:25 Labs: Abnormal lab results 06/29/18 06/30/18 06/30/18 Range/Units 19:41 09:32 09:32 WBC 20.9 H (4.5-11.0) K/mm3 RBC 2.99 L (3.65-5.03) M/mm3 Hgb 10.4 L (11.8-15.2) gm/dl Hct 31.0 L (35.5-45.6) % MCV 104 H (84-94) fl MCH 35 H (28-32) pg RDW 25.5 H (13.2-15.2) % Plt Count 63 L (140-440) K/mm3 PT (12.2-14.9) Sec. INR (0.87-1.13) Sodium 149 H (137-145) mmol/L Potassium 3.3 L (3.6-5.0) mmol/L Chloride 120.4 H (98-107) mmol/L Carbon Dioxide 16 L (22-30) mmol/L BUN 32 H (9-20) mg/dL Creatinine < 0.2 L (0.8-1.5) mg/dL Glucose 115 H (75-100) mg/dL Calcium 7.8 L (8.4-10.2) mg/dL Total Bilirubin 30.50 H (0.1-1.2) mg/dL AST 234 H (5-40) units/L Alkaline Phosphatase 260 H (35-129) units/L CK-MB (CK-2) 4.4 H (0.0-4.0) ng/mL CK-MB (CK-2) Rel Index 5.1 H (0-4) Total Protein 5.0 L (6.3-8.2) g/dL Albumin 1.9 L (3.9-5) g/dL 06/30/18 Range/Units 09:32 WBC (4.5-11.0) K/mm3 RBC (3.65-5.03) M/mm3 Hgb (11.8-15.2) gm/dl Hct (35.5-45.6) % MCV (84-94) fl MCH (28-32) pg RDW (13.2-15.2) % Plt Count (140-440) K/mm3 PT 24.2 H (12.2-14.9) Sec. INR 2.02 H (0.87-1.13) Sodium (137-145) mmol/L Potassium (3.6-5.0) mmol/L Chloride (98-107) mmol/L Carbon Dioxide (22-30) mmol/L BUN (9-20) mg/dL Creatinine (0.8-1.5) mg/dL Glucose (75-100) mg/dL Calcium (8.4-10.2) mg/dL Total Bilirubin (0.1-1.2) mg/dL AST (5-40) units/L Alkaline Phosphatase (35-129) units/L CK-MB (CK-2) (0.0-4.0) ng/mL CK-MB (CK-2) Rel Index (0-4) Total Protein (6.3-8.2) g/dL Albumin (3.9-5) g/dL
--- NOTE | 2018-06-30 16:02 | Gastroenterology Progress Note ---
Assessment and Plan 1.elevated LFTs 2.jaundice 3.acute liver failure: due to alcoholic hepatitis in the setting of underlying cirrhosis. 4.ETOH abuse 5. Alcoholic hepatitis. - LAYLA/AMA/ASMA/iron studies/HSV/CMV labs pending. - acute hepatitis panel negative. - continues to be confused but oriented to place. No much improvement in mental status. - afebrile. - in terms of labs, wbc trending upwards again today. AST/ALT/Alk phos and bilirubin still elevated. T bili elevated at 30. INR at 2 - on trental for alcoholic hepatitis. - started on prednisolone 40 mg daily on 06/28/2018 for alcoholic hepatitis. DF >30. discussed with ID and ok to start steroids. BCx negative. Will monitor for response and calculate Keila score. - Reviewed MRCP results showing no biliary ductal dilation to suggest for cholangitis. - continue lactulose, xifaxan, and MVI. patient is having stools. Rectal tube placed. - started tube feeds via a dobb ness tube. Nutrition consult - antibiotics per ID recommendations. currently off antibiotics. Follow BCx results. - continue to trend labs and supportive care - [facility] - electrolyte management per primary team - patient with poor prognosis and currently considering hospice or DNR status but no decision has been made at this time - will follow 4.sepsis 5.chronic RLE wound -culture +moderate gram negative rods - Patient Problems (1) Acute alcoholic hepatitis Current Visit: Yes Status: Acute (2) Hepatic encephalopathy Current Visit: Yes Status: Acute (3) Hyperbilirubinemia Current Visit: Yes Status: Acute Subjective Date of service: 06/30/18 Principal diagnosis: jaundice, alcoholic liver disease Interval history: Patient noted to have tachycardia yesterday. Treated for low magnesium. Rectal tube placed. Able to say he is at [facility] and says his name. Objective - Constitutional Vitals: Temp Pulse Resp BP Pulse Ox 99.5 F 111 H 22 110/81 100 06/30/18 11:20 06/30/18 11:20 06/30/18 11:20 06/30/18 11:20 06/30/18 11:20 General appearance: no acute distress, disheveled - EENT Eyes: scleral icterus ENT: hearing intact, poor dentition - Respiratory Respiratory: bilateral: diminished - Cardiovascular Rhythm: regular Heart Sounds: Present: S1 & S2 - Extremities Extremities: No edema - Gastrointestinal General gastrointestinal: Present: soft, non-tender, non-distended, normal bowel sounds - Integumentary Integumentary: Present: warm, dry - Neurologic Neurological: oriented to place - Labs CBC & Chem 7: 06/30/18 09:32 06/30/18 09:32 Labs: Laboratory Results - last 24 hr 06/29/18 06/29/18 06/29/18 18:13 19:41 19:41 WBC RBC Hgb Hct MCV MCH MCHC RDW Plt Count PT INR Sodium Potassium Chloride Carbon Dioxide Anion Gap BUN Creatinine Estimated GFR BUN/Creatinine Ratio Glucose POC Glucose 90 Calcium Magnesium Total Bilirubin AST ALT Alkaline Phosphatase Total Creatine Kinase 85 CK-MB (CK-2) 4.4 H CK-MB (CK-2) Rel Index 5.1 H Troponin T < 0.010 Total Protein Albumin Albumin/Globulin Ratio Random Vancomycin 06/30/18 06/30/18 06/30/18 09:32 09:32 09:32 WBC 20.9 H RBC 2.99 L Hgb 10.4 L Hct 31.0 L MCV 104 H MCH 35 H MCHC 34 RDW 25.5 H Plt Count 63 L PT INR Sodium 149 H Potassium 3.3 L Chloride 120.4 H Carbon Dioxide 16 L Anion Gap 16 BUN 32 H Creatinine < 0.2 L Estimated GFR > 60 BUN/Creatinine Ratio 160 Glucose 115 H POC Glucose Calcium 7.8 L Magnesium Total Bilirubin 30.50 H AST 234 H ALT 50 Alkaline Phosphatase 260 H Total Creatine Kinase CK-MB (CK-2) CK-MB (CK-2) Rel Index Troponin T Total Protein 5.0 L Albumin 1.9 L Albumin/Globulin Ratio 0.6 Random Vancomycin 35.9 06/30/18 06/30/18 09:32 12:22 WBC RBC Hgb Hct MCV MCH MCHC RDW Plt Count PT 24.2 H INR 2.02 H Sodium Potassium Chloride Carbon Dioxide Anion Gap BUN Creatinine Estimated GFR BUN/Creatinine Ratio Glucose POC Glucose Calcium Magnesium 2.10 Total Bilirubin AST ALT Alkaline Phosphatase Total Creatine Kinase CK-MB (CK-2) CK-MB (CK-2) Rel Index Troponin T Total Protein Albumin Albumin/Globulin Ratio Random Vancomycin
--- NOTE | 2018-06-30 16:12 | Consultation ---
History of Present Illness Consult date: 06/30/18 Requesting physician: TAVO DIAS Consult reason: other (nsvt) History of present illness: The pt is a 59 yo man with a history of ETOH abuse admitted on 06/22 with altered mental status. He is lethargic and withdrawn with no family at bedside and thus HPI obtained per the chart. According to ED documentation, the fiance of the patient called paramedics because the patient had possible syncopal episode while in the shower. Pt has been subsequently diagnosed with acute liver failure, alcoholic hepatitis, sepsis from right leg infection, syncope, DANG. Pt noted to have run of torsades yesterday and thus cardiology has been consulted. Echo done 06/22 showed EF 50-55%, impaired relaxation, bubble study indicating intrapulmonary shunting, mild MR. Past History Past Medical History: hypertension Social history: alcohol abuse Medications and Allergies Allergies Allergy/AdvReac Type Severity Reaction Status Date / Time No Known Allergies Allergy Verified 02/22/16 11:50 Home Medications Medication Instructions Recorded Confirmed Last Taken Type Folic Acid [Folvite] 1 mg PO QDAY #30 tablet 09/19/17 06/25/18 Unknown Rx Multivitamin Tab [Multiple Vitamin 1 each PO QDAY #30 tablet 09/19/17 06/25/18 Unknown Rx TAB (Theragran)] Thiamine [Vitamin B-1] 100 mg PO QDAY #30 tablet 09/19/17 06/25/18 Unknown Rx hydrALAZINE [Apresoline TAB] 25 mg PO Q8HR #90 tablet 09/19/17 06/25/18 Unknown Rx Active Meds: Active Medications Lipase/Protease/Amylase (Xenia Smart 10,500 Unit) 1 each FEEDTUBE PRN PRN PRN Reason: For Clogged Feeding Tube Folic Acid (Folvite) 1 mg PO QDAY [facility] Last Admin: 06/30/18 14:23 Dose: 1 mg Documented by: Sodium Bicarbonate 75 meq/ (Dextrose) 1,075 mls @ 100 mls/hr IV DIRECT BRISEYDA Last Admin: 06/30/18 03:29 Dose: 100 mls/hr Documented by: Lactulose (Cephulac) 20 gm PO Q8HR BRISEYDA Last Admin: 06/30/18 14:23 Dose: 20 gm Documented by: Lorazepam (Ativan) 2 mg IV Q1HR PRN PRN Reason: CIWA-Ar 8-15 Last Admin: 06/30/18 00:58 Dose: 2 mg Documented by: Lorazepam (Ativan) 4 mg IV Q15MIN PRN PRN Reason: CIWA-Ar >25 Last Admin: 06/25/18 00:24 Dose: 2 mg Documented by: Morphine Sulfate (Morphine) 1 mg IV Q6H PRN PRN Reason: Pain, Moderate (4-6) Multivitamins (Theragran Tab) 1 each PO QDAY [facility] Last Admin: 06/30/18 10:10 Dose: 1 each Documented by: Ondansetron HCl (Zofran) 4 mg IV Q8H PRN PRN Reason: Nausea And Vomiting Pentoxifylline (Trental) 400 mg PO Q12HR [facility] Last Admin: 06/30/18 10:10 Dose: 400 mg Documented by: Potassium Chloride (Potassium Chloride) 40 meq FEEDTUBE ONCE NR Stop: 06/30/18 18:00 Last Admin: 06/30/18 14:23 Dose: 40 meq Documented by: Prednisolone Sodium Phosphate (Orapred) 40 mg PO QDAY [facility] Last Admin: 06/30/18 10:10 Dose: 40 mg Documented by: Rifaximin (Xifaxan) 550 mg PO BID [facility] Last Admin: 06/30/18 10:10 Dose: 550 mg Documented by: Simple Syrup (Simple Syrup) 15 ml FEEDTUBE PRN PRN PRN Reason: Hypoglycemia Simple Syrup (Simple Syrup) 30 ml FEEDTUBE PRN PRN PRN Reason: Hypoglycemia Sodium Bicarbonate (Sodium Bicarbonate) 1,950 mg PO TID [facility] Last Admin: 06/30/18 10:18 Dose: 1,950 mg Documented by: Sodium Bicarbonate (Sodium Bicarbonate) 325 mg FEEDTUBE PRN PRN PRN Reason: For Clogged Feeding Tube Thiamine HCl (Vitamin B-1) 100 mg PO QDAY [facility] Last Admin: 06/30/18 14:23 Dose: 100 mg Documented by: Review of Systems ROS unobtainable: due to mental status Physical Examination Vital Signs Resp 25 H 06/22/18 00:36 General appearance: cachectic, other (lethargic) Cardiac: Positive: Reg Rate and Rhythm, S1/S2 Lungs: Positive: Decreased Breath Sounds Neuro: Positive: Other (lethargic) Extremities: Absent: edema Results 06/30/18 09:32 06/30/18 09:32 Cardiac Enzymes 06/29/18 06/30/18 Range/Units 19:41 09:32 AST 234 H (5-40) units/L CK-MB (CK-2) 4.4 H (0.0-4.0) ng/mL Coagulation 06/30/18 Range/Units 09:32 PT 24.2 H (12.2-14.9) Sec. INR 2.02 H (0.87-1.13) CBC 06/30/18 Range/Units 09:32 WBC 20.9 H (4.5-11.0) K/mm3 RBC 2.99 L (3.65-5.03) M/mm3 Hgb 10.4 L (11.8-15.2) gm/dl Hct 31.0 L (35.5-45.6) % Plt Count 63 L (140-440) K/mm3 Comprehensive Metabolic Panel 06/30/18 Range/Units 09:32 Sodium 149 H (137-145) mmol/L Potassium 3.3 L (3.6-5.0) mmol/L Chloride 120.4 H (98-107) mmol/L Carbon Dioxide 16 L (22-30) mmol/L BUN 32 H (9-20) mg/dL Creatinine < 0.2 L (0.8-1.5) mg/dL Glucose 115 H (75-100) mg/dL Calcium 7.8 L (8.4-10.2) mg/dL AST 234 H (5-40) units/L ALT 50 (7-56) units/L Alkaline Phosphatase 260 H (35-129) units/L Total Protein 5.0 L (6.3-8.2) g/dL Albumin 1.9 L (3.9-5) g/dL - Imaging and Cardiology Echo: report reviewed (06/22 showed EF 50-55%, impaired relaxation, bubble study indicating intrapulmonary shunting, mild MR. ) EKG: report reviewed, image reviewed EKG interpretations - Telemetry EKG Rhythm: Sinus Tachycardia - EKG Sinus rhythms and dysrhythmias: sinus tachycardia Assessment and Plan Tele reviewed - pt had apparent run of torsades yesterday. Initiate lopressor and titrate as BPs permit. Check thyroid profile. Replete lytes PRN. F/u ECG in AM. Will cont with conservative cardiac management at this time given overall guarded prognosis - ? pt's family considering hospice. The patient has been seen in conjunction with Dr. Abel who agrees with the assessment and plan of care. - Patient Problems (1) Torsades de pointes Current Visit: Yes Status: Acute (2) Altered mental status Current Visit: Yes Status: Acute (3) Syncope Current Visit: Yes Status: Acute Qualifiers: Syncope type: vasovagal syncope Qualified Code(s): R55 - Syncope and collapse (4) Sepsis Current Visit: Yes Status: Acute (5) Acute liver failure Current Visit: Yes Status: Acute (6) Acute alcoholic hepatitis Current Visit: Yes Status: Acute (7) Hypokalemia Current Visit: Yes Status: Acute (8) Hypertension Current Visit: Yes Status: Chronic Qualifiers: Hypertension type: essential hypertension Qualified Code(s): I10 - Essential (primary) hypertension (9) Anemia Current Visit: Yes Status: Acute (10) Thrombocytopenia Current Visit: Yes Status: Acute (11) Coagulopathy Current Visit: Yes Status: Acute (12) ETOH abuse Current Visit: Yes Status: Chronic (13) Alcohol withdrawal Current Visit: Yes Status: Acute
[2018-06-30] MEDS: LOPRESSOR PO SCH (23:19)
[2018-07-01] MEDS: SODIUM BICARBONATE 75 MEQ in D5W 1,000 ML IV SCH (06:46)
[2018-07-01] MEDS: CEPHULAC PO SCH (06:47)
[2018-07-01 07:55] LABS: Hematocrit 30.5 % (35.5-45.6); Hemoglobin 10.2 gm/dl (11.8-15.2); Mean Corpuscular HGB Conc 33 % (32-34); Mean Corpuscular Volume 106 fl (84-94); Red Blood Count 2.87 M/mm3 (3.65-5.03)
[2018-07-01 08:04] LABS: Red Cell Distribution Width 27.8 % (13.2-15.2)
[2018-07-01 08:41] LABS: BUN/Creatinine Ratio TNR; Blood Urea Nitrogen TNR mg/dL (9-20); Calcium TNR mg/dL (8.4-10.2)
[2018-07-01 08:42] LABS: Alanine Aminotransferase TNR units/L (7-56); Albumin TNR g/dL (3.9-5); Hemolysis Index TNR
[2018-07-01 08:58] LABS: Band Neutrophils # (Manual) 0.2 K/mm3; Basophils % (Manual) 0 % (0.0-1.8); Eosinophils % (Manual) 0 % (0.0-4.3); Total Cells Counted 100
[2018-07-01 09:10] LABS: Anisocytosis 2+; Macrocytosis 1+; Poikilocytosis 1+
[2018-07-01 09:11] LABS: Giant Platelets Rare; Platelet Estimate Consistent w Auto; Target Cells 1+
[2018-07-01 09:12] LABS: Platelet Count 58 K/mm3 (140-440)
--- NOTE | 2018-07-01 09:22 | Progress Note ---
Assessment and Plan Impression * Metabolic acidosis * Hypernatremia * Hypokalemia * Alcoholic liver disease Recommendations * Today's chemistries are pending. * Continue bicarbonate in IV fluid * Continue oral bicarbonate replacement as well * Avoid nephrotoxins * Monitor fluid status and electrolytes closely Subjective Date of service: 07/01/18 Principal diagnosis: jaundice, alcoholic liver disease Interval history: Patient continues to have some diarrhea. Currently has a rectal tube in place. Dobbhoff tube is in place. Appears somewhat sleepy today. Objective - Vital Signs Vital signs: Vital Signs - 12hr 06/30/18 06/30/18 06/30/18 22:37 23:15 23:19 Temperature 98.4 F Pulse Rate 102 H 102 H Respiratory 20 22 Rate Blood Pressure 124/91 124/91 O2 Sat by Pulse 98 Oximetry 07/01/18 04:30 Temperature 98.1 F Pulse Rate 89 Respiratory 20 Rate Blood Pressure 123/77 O2 Sat by Pulse 96 Oximetry - General Appearance General appearance: well-developed, well-nourished, appears stated age EENT: PERRL, mucous membranes moist Neck: no JVD, no thyromegaly, no carotid bruit, supple Respiratory: Present: Clear to Ascultation Cardiology: regular, normal heart rate, S1S2, no murmurs Gastrointestinal: normal, normoactive bowel sounds Integumentary: no rash, other (no edema) - Lab 07/01/18 07:03 07/01/18 07:03 Most recent lab results Calcium TNR 07/01/18 07:03 Phosphorus 1.00 mg/dL (2.5-4.5) L 06/26/18 10:10 Magnesium TNR 07/01/18 07:03 Medications & Allergies - Medications Allergies/Adverse Reactions: Allergies No Known Allergies Allergy (Verified 02/22/16 11:50) Home Medications: Home Medications Medication Instructions Recorded Confirmed Last Taken Type Folic Acid [Folvite] 1 mg PO QDAY #30 tablet 09/19/17 06/25/18 Unknown Rx Multivitamin Tab [Multiple Vitamin 1 each PO QDAY #30 tablet 09/19/17 06/25/18 Unknown Rx TAB (Theragran)] Thiamine [Vitamin B-1] 100 mg PO QDAY #30 tablet 09/19/17 06/25/18 Unknown Rx hydrALAZINE [Apresoline TAB] 25 mg PO Q8HR #90 tablet 09/19/17 06/25/18 Unknown Rx Active Medications: Generic Name Dose Route Start Last Admin Trade Name Freq PRN Reason Stop Dose Admin Lipase/Protease/Amylase 1 each 06/29/18 14:07 Pancreoriana Smart 10,500 Unit FEEDTUBE PRN PRN For Clogged Feeding Tube Folic Acid 1 mg 06/30/18 13:00 06/30/18 14:23 Folvite PO 1 mg QDAY BRISEYDA Administration Sodium Bicarbonate 75 meq/ 1,075 mls @ 100 mls/hr 06/29/18 11:00 07/01/18 06: 46 Dextrose IV 100 mls/hr DIRECT BRISEYDA Administration Lactulose 20 gm 06/25/18 14:00 07/01/18 06:47 Cephulac PO Not Given Q8HR BRISEYDA Lorazepam 2 mg 06/22/18 11:03 06/30/18 00:58 Ativan IV 2 mg Q1HR PRN Administration CIWA-Ar 8-15 Lorazepam 4 mg 06/22/18 11:03 06/25/18 00:24 Ativan IV 2 mg Q15MIN PRN Administration CIWA-Ar >25 Metoprolol Tartrate 25 mg 06/30/18 22:00 06/30/18 23:19 Lopressor PO 25 mg BID BRISEYDA Administration Morphine Sulfate 1 mg 06/22/18 18:02 Morphine IV Q6H PRN Pain, Moderate (4-6) Multivitamins 1 each 06/23/18 10:00 06/30/18 10:10 Theragran Tab PO 1 each QDAY BRISEYDA Administration Ondansetron HCl 4 mg 06/22/18 03:10 Zofran IV Q8H PRN Nausea And Vomiting Pentoxifylline 400 mg 06/24/18 22:00 06/30/18 23:19 Trental PO 400 mg Q12HR BRISEYDA Administration Prednisolone Sodium Phosphate 40 mg 06/28/18 17:00 06/30/18 10:10 Orapred PO 40 mg QDAY BRISEYDA Administration Rifaximin 550 mg 06/22/18 22:00 06/30/18 23:19 Xifaxan PO 550 mg BID BRISEYDA Administration Simple Syrup 15 ml 06/29/18 14:07 Simple Syrup FEEDTUBE PRN PRN Hypoglycemia Simple Syrup 30 ml 06/29/18 14:07 Simple Syrup FEEDTUBE PRN PRN Hypoglycemia Sodium Bicarbonate 1,950 mg 06/28/18 15:00 06/30/18 23:18 Sodium Bicarbonate PO 1,950 mg TID BRISEYDA Administration Sodium Bicarbonate 325 mg 06/29/18 14:07 Sodium Bicarbonate FEEDTUBE PRN PRN For Clogged Feeding Tube Thiamine HCl 100 mg 06/30/18 13:00 06/30/18 14:23 Vitamin B-1 PO 100 mg QDAY BRISEYDA Administration
[2018-07-01 10:16] LABS: Albumin 1.8 g/dL (3.9-5); BUN/Creatinine Ratio 210; Blood Urea Nitrogen 42 mg/dL (9-20); Calcium 7.8 mg/dL (8.4-10.2); Hemolysis Index 105
[2018-07-01 10:18] LABS: Alanine Aminotransferase 52 units/L (7-56)
--- NOTE | 2018-07-01 10:32 | Progress Note ---
Assessment and Plan TSH noted to be low. further eval/management per primary. Cont present cardiac management. Overall guarded prognosis - ? pt's family considering hospice. The patient has been seen in conjunction with Dr. Abel who agrees with the assessment and plan of care. - Patient Problems (1) Torsades de pointes Current Visit: Yes Status: Acute (2) Altered mental status Current Visit: Yes Status: Acute (3) Syncope Current Visit: Yes Status: Acute Qualifiers: Syncope type: vasovagal syncope Qualified Code(s): R55 - Syncope and collapse (4) Sepsis Current Visit: Yes Status: Acute (5) Acute liver failure Current Visit: Yes Status: Acute (6) Acute alcoholic hepatitis Current Visit: Yes Status: Acute (7) Hypokalemia Current Visit: Yes Status: Acute (8) Hypertension Current Visit: Yes Status: Chronic Qualifiers: Hypertension type: essential hypertension Qualified Code(s): I10 - Essential (primary) hypertension (9) Anemia Current Visit: Yes Status: Acute (10) Thrombocytopenia Current Visit: Yes Status: Acute (11) Coagulopathy Current Visit: Yes Status: Acute (12) ETOH abuse Current Visit: Yes Status: Chronic (13) Alcohol withdrawal Current Visit: Yes Status: Acute Subjective Date of service: 07/01/18 Principal diagnosis: jaundice, alcoholic liver disease Interval history: pt resting in bed, remains confused, lethargic, restrained. tele reviewed - in SR with no acute events noted overnight Objective Last Vital Signs Temp 98.1 F 07/01/18 04:30 Pulse 89 07/01/18 04:30 Resp 20 07/01/18 04:30 BP 123/77 07/01/18 04:30 Pulse Ox 96 07/01/18 04:30 - Physical Examination General: Other (confused, restrained) Cardiac: Positive: Reg Rate and Rhythm, S1/S2 Lungs: Positive: Decreased Breath Sounds Neuro: Positive: Other (confused, restrained) Extremities: Absent: edema - Labs and Meds Cardiac Enzymes 06/30/18 07/01/18 07/01/18 Range/Units 09:32 07:03 09:25 AST 234 H TNR 221 H (5-40) units/L CBC 07/01/18 Range/Units 07:03 WBC 18.4 H (4.5-11.0) K/mm3 RBC 2.87 L (3.65-5.03) M/mm3 Hgb 10.2 L (11.8-15.2) gm/dl Hct 30.5 L (35.5-45.6) % Plt Count 58 L (140-440) K/mm3 Comprehensive Metabolic Panel 06/30/18 07/01/18 07/01/18 Range/Units 09:32 07:03 09:25 Sodium TNR 150 H Potassium 3.3 L TNR 3.5 L (3.6-5.0) mmol/L Chloride TNR 119.1 H Carbon Dioxide TNR 17 L BUN TNR 42 H Creatinine TNR < 0.2 L Glucose TNR 122 H Calcium TNR 7.8 L AST 234 H TNR 221 H (5-40) units/L ALT 50 TNR 52 (7-56) units/L Alkaline Phosphatase TNR 252 H Total Protein 5.0 L TNR 4.9 L (6.3-8.2) g/dL Albumin TNR 1.8 L - Imaging and Cardiology EKG: report reviewed, image reviewed Echo: report reviewed (06/22 showed EF 50-55%, impaired relaxation, bubble study indicating intrapulmonary shunting, mild MR. ) - Telemetry EKG Rhythm: Sinus Rhythm - EKG Sinus rhythms and dysrhythmias: sinus tachycardia
[2018-07-01] MEDS: SODIUM BICARBONATE PO SCH (11:34)
[2018-07-01] MEDS: THERAGRAN Tab PO SCH (11:35)
[2018-07-01] MEDS: FOLVITE PO SCH (11:35)
[2018-07-01] MEDS: TRENTAL PO SCH (11:35)
[2018-07-01] MEDS: XIFAXAN PO SCH (11:35)
[2018-07-01] MEDS: VITAMIN B-1 PO SCH (11:35)
--- NOTE | 2018-07-01 12:17 | Gastroenterology Progress Note ---
Assessment and Plan 1.elevated LFTs/hyperbilirubinemia 2.jaundice 3.acute liver failure 4.ETOH abuse 5.Alcoholic hepatitis -afebrile -WBC 18.4 -H/H 10.2/30.5-stable -plt 58, INR 2.20 - acute hepatitis panel negative -AST/ALT/Alk phos and bilirubin still elevated. T bili elevated at 30 - LAYLA/AMA/ASMA/iron studies/HSV/CMV labs pending -alcohol level 0.11 on admission -abd U/S showed fatty infiltration of liver, distended gallbladder (no gallstones), and dilation of CBD (1.1 cm) -etiology- acute alcoholic hepatitis (suspect underlying cirrhosis given history and labs) -clinically, patient remains lethargic. No evidence of abd pain, N/v, or signs of bleeding. -MR/MRCP results showing no biliary ductal dilation to suggest for cholangitis - on trental for alcoholic hepatitis. - started on prednisolone 40 mg daily on 06/28/2018 for alcoholic hepatitis. DF >30. discussed with ID and ok to start steroids. BCx negative. Will monitor for response and calculate Keila score. . - continue lactulose, xifaxan, and MVI. patient is having stools. Rectal tube placed. - started tube feeds via a dobb ness tube. Nutrition consult - antibiotics per ID recommendations. currently off antibiotics. Follow BCx results. - continue to trend labs and supportive care - alcohol cessation-[facility] protocol - electrolyte management per primary team - patient with poor prognosis and currently considering hospice or DNR status but no decision has been made at this time - will follow 6.sepsis 7.Chronic RLE wound -culture +moderate gram negative rods Subjective Date of service: 07/01/18 Principal diagnosis: jaundice, alcoholic liver disease Interval history: No acute events overnight. Patient remains lethargic and in restraints. No evidence of abd pain, N/V, or active signs of bleeding. Objective - Constitutional Vitals: Temp Pulse Resp BP Pulse Ox 98.1 F 89 20 123/77 96 07/01/18 04:30 07/01/18 04:30 07/01/18 04:30 07/01/18 04:30 07/01/18 04:30 General appearance: other (lethargic) - EENT ENT: other (+dobhoff tube) - Respiratory Respiratory: bilateral: diminished - Cardiovascular Rhythm: regular - Gastrointestinal General gastrointestinal: Present: soft, non-distended, normal bowel sounds - Integumentary Integumentary: Present: jaundice - Labs CBC & Chem 7: 07/01/18 07:03 07/01/18 09:25 Labs: Laboratory Results - last 24 hr 06/30/18 06/30/18 06/30/18 12:22 21:25 21:25 WBC RBC Hgb Hct MCV MCH MCHC RDW Plt Count Add Manual Diff Total Counted Seg Neuts % (Manual) Band Neutrophils % Lymphocytes % (Manual) Reactive Lymphs % (Man) Monocytes % (Manual) Eosinophils % (Manual) Basophils % (Manual) Metamyelocytes % Myelocytes % Promyelocytes % Blast Cells % Nucleated RBC % Seg Neutrophils # Man Band Neutrophils # Lymphocytes # (Manual) Abs React Lymphs (Man) Monocytes # (Manual) Eosinophils # (Manual) Basophils # (Manual) Metamyelocytes # Myelocytes # Promyelocytes # Blast Cells # WBC Morphology Hypersegmented Neuts Hyposegmented Neuts Hypogranular Neuts Smudge Cells Toxic Granulation Toxic Vacuolation Dohle Bodies Pelger-Huet Anomaly Elaine Rods Platelet Estimate Clumped Platelets Plt Clumps, EDTA Large Platelets Giant Platelets Platelet Satelliting Plt Morphology Comment RBC Morphology Dimorphic RBCs Polychromasia Hypochromasia Poikilocytosis Anisocytosis Microcytosis Macrocytosis Spherocytes Pappenheimer Bodies Sickle Cells Target Cells Tear Drop Cells Ovalocytes Helmet Cells Lara-Ryan Bodies Gaston Rings Henderson Cells Bite Cells Crenated Cell Elliptocytes Acanthocytes (Spur) Rouleaux Hemoglobin C Crystals Schistocytes Malaria parasites Tristen Bodies Hem Pathologist Commnt Sodium Potassium Chloride Carbon Dioxide Anion Gap BUN Creatinine Estimated GFR BUN/Creatinine Ratio Glucose Calcium Magnesium 2.10 Total Bilirubin AST ALT Alkaline Phosphatase Total Protein Albumin Albumin/Globulin Ratio TSH 0.032 L Free T4 0.98 07/01/18 07/01/18 07/01/18 07:03 07:03 09:25 WBC 18.4 H RBC 2.87 L Hgb 10.2 L Hct 30.5 L MCV 106 H MCH 35 H MCHC 33 RDW 27.8 H Plt Count 58 L Add Manual Diff Complete Total Counted 100 Seg Neuts % (Manual) 90.0 H Band Neutrophils % 1.0 Lymphocytes % (Manual) 4.0 L Reactive Lymphs % (Man) 0 Monocytes % (Manual) 2.0 Eosinophils % (Manual) 0 Basophils % (Manual) 0 Metamyelocytes % 3.0 Myelocytes % 0 Promyelocytes % 0 Blast Cells % 0 Nucleated RBC % 61.0 H Seg Neutrophils # Man 18.9 H Band Neutrophils # 0.2 Lymphocytes # (Manual) 0.8 L Abs React Lymphs (Man) 0.0 Monocytes # (Manual) 0.4 Eosinophils # (Manual) 0.0 Basophils # (Manual) 0.0 Metamyelocytes # 0.6 Myelocytes # 0.0 Promyelocytes # 0.0 Blast Cells # 0.0 WBC Morphology Not Reportable Hypersegmented Neuts Not Reportable Hyposegmented Neuts Not Reportable Hypogranular Neuts Not Reportable Smudge Cells Not Reportable Toxic Granulation Not Reportable Toxic Vacuolation Not Reportable Dohle Bodies Not Reportable Pelger-Huet Anomaly Not Reportable Elaine Rods Not Reportable Platelet Estimate Consistent w auto Clumped Platelets Not Reportable Plt Clumps, EDTA Not Reportable Large Platelets Not Reportable Giant Platelets Rare Platelet Satelliting Not Reportable Plt Morphology Comment Not Reportable RBC Morphology Not Reportable Dimorphic RBCs Not Reportable Polychromasia Not Reportable Hypochromasia Not Reportable Poikilocytosis 1+ Anisocytosis 2+ Microcytosis 1+ Macrocytosis 1+ Spherocytes Not Reportable Pappenheimer Bodies Not Reportable Sickle Cells Not Reportable Target Cells 1+ Tear Drop Cells Not Reportable Ovalocytes Not Reportable Helmet Cells Not Reportable Lara-Ryan Bodies Not Reportable Gaston Rings Not Reportable Michel Cells Not Reportable Bite Cells Not Reportable Crenated Cell Not Reportable Elliptocytes Not Reportable Acanthocytes (Spur) Not Reportable Rouleaux Not Reportable Hemoglobin C Crystals Not Reportable Schistocytes Not Reportable Malaria parasites Not Reportable Tristen Bodies Not Reportable Hem Pathologist Commnt No Sodium TNR 150 H Potassium TNR 3.5 L Chloride TNR 119.1 H Carbon Dioxide TNR 17 L Anion Gap TNR 17 BUN TNR 42 H Creatinine TNR < 0.2 L Estimated GFR TNR > 60 BUN/Creatinine Ratio TNR 210 Glucose TNR 122 H Calcium TNR 7.8 L Magnesium TNR Total Bilirubin TNR 30.80 H AST TNR 221 H ALT TNR 52 Alkaline Phosphatase TNR 252 H Total Protein TNR 4.9 L Albumin TNR 1.8 L Albumin/Globulin Ratio TNR 0.6 TSH Free T4
[2018-07-01] MEDS: LOPRESSOR PO SCH (13:00)
[2018-07-01] MEDS: ORAPRED PO SCH (13:00)
[2018-07-01 14:44] VITALS: BP 105/63
[2018-07-01] MEDS ORDERED: NACL 0.9% 500 ML 500 ML IV NR (15:16)
--- NOTE | 2018-07-01 17:01 | Progress Note ---
Assessment and Plan Patient is a 59 yo man with a history of Alcohol abuse admitted with altered mental status. According to ED documentation, the fiance of the patient called paramedics because the patient had possible syncopal episode while in the shower. EMS records are not currently in his physical chart for my review. Patient was admitted for suspected cholangitis, liver failure, sepsis from right leg infection and syncope. * CT of the head is within normal limits. * Chest x-ray shows that the patient did not take adequate breath however there is no obvious infiltrates. X-ray of the L-spine per my interpretation shows that the patient does have significant degenerative disease however there is no acute fracture * XR Spine lumbosacral: Stable prominent Schmorl's deformities and multilevel compression deformities at the T12-L3 levels. * US abdomen: IMPRESSION: Coarsely echogenic hepatic parenchyma consistent with fatty infiltration. Distended gallbladder with questionable trace pericholecystic fluid. No gallstones visualized. Dilatation of the common bile duct measuring approximately 1.1 cm. Distal obstructive process must be suspected. Further evaluation with CT and or correlation with MRCP should be considered. If acute cholecystitis is clinically suspected, correlation with HIDA scan may be helpful.. * V/Q scan: No PE * MRCP IMPRESSION: Distended gallbladder. There is some fluid around the gallbladder. Although gallstones are not seen, cholecystitis is not excluded The common duct is not dilated. No evidence of choledocholithiasis is seen. -Acute hypoxic respiratory failure with CODE MET on Friday06/26/18 because pulse ox dropped to 55% on RA: treat with O2, . 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 -Anemia SECODNARY TO ETOH AND LIVER failure: GI is following -Possible Choledocholethasis with LFT abnormalities -Syncope possible vasovagal related to above: added telemetry -Dialated CBD with distended gall bladder: too ill for HIDA scan at present, GI is following -Severe sepsis with >2 SOFA criteria Met due to lateral elongated RLL leg ulcerated infection growing multiple species, at least stage 4, poa: GS is following, on ABX, consult ID -Acute Kidney Injury with vasomotor nephropathy; monitor bmp daily -Hyponatremia: monitor closely -Hypomagnesemia: monitor closely, add telemetry -ETOH INTOXICATION with BAL of 0.11 on admission, watch for withdrawal: CIWA ordered -Metabolic Acidosis -Lactic acidosis -Hypokalemia; replete via NGT monitor closely -Multilevel Compression deformities- T12-L3- No incontinence prognosis poor D/W Morgan Michael at bedside and also with brother Delano by phone Full code History Interval history: Patient was seen and examined. Follow-up on current diagnosis Liver failure. ap pears more lethargic today, discussed with NOK Mr iWck, changed code status to DNR. family willing for hospice but has not decided on location for home hospice. Hospitalist Physical GEN: critical ill , somnolent, NOt orientated to time place or person HEENT: NCAT, EOMI, PERRL, OP Clear NECK: supple, no adenopathy, no thyromegaly, no JVD CVS/HEART: tachycardic, normal S1S2, pulses present bilaterally CHEST/LUNGS: diminished, tachypneic, Symmetrical chest expansion, good air entry bilaterally GI/Abdomen: soft, NTND, good bowel sounds, no guarding or rebound /Bladder: no suprapubic tenderness, no CVA or paraspinal tenderness EXT/Skin: no c/c/e, no obvious rash MSK: no swelling Neuro: unable to follow commend Psych: unable to assess Subjective Date of service: 07/01/18 Principal diagnosis: jaundice, alcoholic liver disease Objective - Constitutional Vitals: Vital Signs - 12hr 07/01/18 13:00 Pulse Rate 102 H Blood Pressure 105/63 - Labs CBC & Chem 7: 07/01/18 07:03 07/01/18 09:25 Labs: Abnormal lab results 06/30/18 07/01/18 07/01/18 Range/Units 21:25 07:03 09:25 WBC 18.4 H (4.5-11.0) K/mm3 RBC 2.87 L (3.65-5.03) M/mm3 Hgb 10.2 L (11.8-15.2) gm/dl Hct 30.5 L (35.5-45.6) % MCV 106 H (84-94) fl MCH 35 H (28-32) pg RDW 27.8 H (13.2-15.2) % Plt Count 58 L (140-440) K/mm3 Seg Neuts % (Manual) 90.0 H (40.0-70.0) % Lymphocytes % (Manual) 4.0 L (13.4-35.0) % Nucleated RBC % 61.0 H (0.0-0.9) % Seg Neutrophils # Man 18.9 H (1.8-7.7) K/mm3 Lymphocytes # (Manual) 0.8 L (1.2-5.4) K/mm3 Sodium 150 H (137-145) mmol/L Potassium 3.5 L (3.6-5.0) mmol/L Chloride 119.1 H (98-107) mmol/L Carbon Dioxide 17 L (22-30) mmol/L BUN 42 H (9-20) mg/dL Creatinine < 0.2 L (0.8-1.5) mg/dL Glucose 122 H (75-100) mg/dL Calcium 7.8 L (8.4-10.2) mg/dL Total Bilirubin 30.80 H (0.1-1.2) mg/dL AST 221 H (5-40) units/L Alkaline Phosphatase 252 H (35-129) units/L Total Protein 4.9 L (6.3-8.2) g/dL Albumin 1.8 L (3.9-5) g/dL TSH 0.032 L (0.270-4.200) mlU/mL
--- NOTE | 2018-07-01 17:36 | Event Note ---
Date: 07/01/18 Called by RN that Patient lost pulse and stopped breathing Meet family at bedside, updated Patient pronounced at 5:31pm Cause of - Cardiolopulmonary arrest due to acute liver failure due to alcoholism.
--- NOTE | 2018-07-01 17:38 | Death Summary ---
Summary - Providers Date of service: 07/01/18 Consults: 06/22/18 06:00 Consult to Physician [CONS] Routine Comment: Consulting Provider: DILLON LONGORIA Physician Instructions: Reason For Exam: DANG Consult to Physician [CONS] Routine Comment: Consulting Provider: DEBBIE LINN Physician Instructions: Reason For Exam: TRANSAMINITIS, JAUNDICE, ALCOHOLIC LIVER DISEASE Consult to Physician [CONS] Routine Comment: Consulting Provider: BRITTANY SYKES Physician Instructions: Reason For Exam: LOW BACK PAIN WITH THORACOLUMBER VERTEB. DEFORMITY 06/22/18 08:46 Consult to Physician [CONS] Routine Comment: Consulting Provider: DILLON LONGORIA Physician Instructions: Reason For Exam: dang 06/22/18 15:13 Consult to Wound/ET Nurse [CONS] Routine Reason For Exam: wound eval 06/24/18 15:40 Consult to Physician [CONS] Routine Comment: Consulting Provider: DAGOBERTO ZAPATA Physician Instructions: Reason For Exam: right leg ulcer 06/26/18 08:42 Consult to Physician [CONS] Routine Comment: Consulting Provider: KRISTIAN MANDUJANO Physician Instructions: Reason For Exam: Sepsis, right leg infection, manage ABX 06/26/18 15:56 Consult to Wound/ET Nurse [CONS] Routine Reason For Exam: wound eval rectum 06/28/18 14:04 Consult to Dietitian/Nutrition [CONS] Routine Physician Instructions: Reason For Exam: Reason for Consult: Write/Manage Tube Feeding 06/30/18 16:00 Consult to Physician [CONS] Routine Comment: Consulting Provider: LORI MANDEL Physician Instructions: Reason For Exam: NSVT Attending: TAVO DIAS - summary Date of admission: 06/22/18 04:45 Significant findings: * CT of the head is within normal limits. * Chest x-ray shows that the patient did not take adequate breath however there is no obvious infiltrates. X-ray of the L-spine per my interpretation shows that the patient does have significant degenerative disease however there is no acute fracture * XR Spine lumbosacral: Stable prominent Schmorl's deformities and multilevel compression deformities at the T12-L3 levels. * US abdomen: IMPRESSION: Coarsely echogenic hepatic parenchyma consistent with fatty infiltration. Distended gallbladder with questionable trace pericholecystic fluid. No gallstones visualized. Dilatation of the common bile duct measuring approximately 1.1 cm. Distal obstructive process must be s uspected. Further evaluation with CT and or correlation with MRCP should be considered. If acute cholecystitis is clinically suspected, correlation with HIDA scan may be helpful.. * V/Q scan: No PE * MRCP IMPRESSION: Distended gallbladder. There is some fluid around the gallbladder. Although gallstones are not seen, cholecystitis is not excluded The common duct is not dilated. No evidence of choledocholithiasis is seen. Procedures/treatments rendered: Patient is a 59 yo man with a history of Alcohol abuse admitted with altered mental status. According to ED documentation, the fiance of the patient called paramedics because the patient had possible syncopal episode while in the shower. Patient was admitted for suspected cholangitis, liver failure, sepsis from right leg infection and syncope. Despite being treated aggressively, his clinical condition continue to deteriorate due to severe alcoholic hepatic failure and persistently elevated ammonia, hypernatremia and LFT. After several discussion with the family and NOK, family changed his code status to DNR and agreed for hospice. But patient before hospice could be arranged for him. Cause of : Most likely Alcoholic hepatic failure, sepsis, hypernatremia
[2018-07-02 22:09] LABS: ANA Screen, IFA Negative (Negative)
== END 2018-07-01 18:00 | DRG 871 ==
LOC: ED 00:04 → 3A 04:45
PROVIDERS: ADMIT Internal Medicine; ATTEND Internal Medicine
PROC: 4A033R1 Measurement of Arterial Saturation, Peripheral, Percutaneous Approach (ICD-10-PCS; principal; 2018-06-26)
DX: A41.9 Sepsis, unspecified organism (principal); J69.0 Pneumonitis due to inhalation of food and vomit; N17.0 Acute kidney failure with tubular necrosis; J96.01 Acute respiratory failure with hypoxia; K72.00 Acute and subacute hepatic failure without coma; E87.1 Hypo-osmolality and hyponatremia; K83.09 Other cholangitis; L97.919 Non-pressure chronic ulcer of unspecified part of right lower leg with unspecified severity; F10.239 Alcohol dependence with withdrawal, unspecified; I11.0 Hypertensive heart disease with heart failure; I50.32 Chronic diastolic (congestive) heart failure; R55 Syncope and collapse; K72.90 Hepatic failure, unspecified without coma; M54.9 Dorsalgia, unspecified; G89.29 Other chronic pain; X58.XXXD Exposure to other specified factors, subsequent encounter; G40.909 Epilepsy, unspecified, not intractable, without status epilepticus; R65.20 Severe sepsis without septic shock; E87.6 Hypokalemia; M43.8X4 Other specified deforming dorsopathies, thoracic region; D69.6 Thrombocytopenia, unspecified; D64.9 Anemia, unspecified; Y90.0 Blood alcohol level of less than 20 mg/100 ml; K70.9 Alcoholic liver disease, unspecified; K70.10 Alcoholic hepatitis without ascites; E83.42 Hypomagnesemia; K80.50 Calculus of bile duct without cholangitis or cholecystitis without obstruction; B96.20 Unspecified Escherichia coli [E. coli] as the cause of diseases classified elsewhere; F10.229 Alcohol dependence with intoxication, unspecified; S81.801D Unspecified open wound, right lower leg, subsequent encounter
CPT/HCPCS: 36415; 36600; 70450; 71045; 72100; 74018; 74181; 76705; 78582; 80048; 80053; 80074; 80076; 80202; 80320; 82140; 82550; 82553; 82803; 82962; 83520; 83690; 83735; 83880; 84100; 84132; 84295; 84439; 84443; 84484; 85007; 85025; 85027; 85379; 85610; 85730; 86038; 86235; 86900; 86901; 87040; 87076; 87116; 87186; 87497; 93005; 93010; 93306; G0378; A9540; A9558; G0480; J0456; J0692; J2060; J3370; J3430; J3475; J3480; J7030; J7040; J7050; J7070; J7510